=== PATIENT | female | born 1965 | race Caucasian/White ===

== ENCOUNTER → 2020-02-16 14:34 | Outpatient (CLI) | payer MEDICAID, SELFPAY ==
--- NOTE | 2020-02-16 14:42 | XR_ITS ---
PROCEDURE: XR CHEST 2V CLINICAL HISTORY: COUGH Cough, shortness of breath, smoker COMPARISON: No exams were available for comparison FINDINGS: The cardiomediastinal silhouette and pulmonary vascularity are within normal limits. There is some mild hyperinflation with flattening of the hemidiaphragms consistent with COPD. No lobar consolidation or collapse. Lungs are clear. No acute bony abnormalities. IMPRESSION: Hyperinflation with flattening of the diaphragms suggesting COPD/small airway disease otherwise negative Dictated by: Abdias Santiago MD 02/16/2020 15:18 Electronically signed by Abdias Santiago MD in [place] 02/16/2020 15:18
== END ==
PROVIDERS: PCP Family Medicine; Visit Provider Family Medicine
DX: R05 Cough (principal)
CPT/HCPCS: 71046

== ENCOUNTER 2020-10-08 09:05 | Emergency (ER) | payer OTHER, SELFPAY ==
[2020-10-08 09:15] VITALS: BP 119/75; PULSE 71; RESP 20; TEMP 36.6; O2SAT 98; BMI 29.0
--- NOTE | 2020-10-08 09:28 | HMH.EDUTC ---
[facility] [place] Clinical Impression: Exposure to COVID-19 virus Disposition: Home, Self-Care Condition on Discharge: Good Instructions: DI for COVID-19 (Suspected or Confirmed ), Preventing the Spread of Coronavirus Discharge Instructions Additional Instructions: Drink plenty of fluids. Take tylenol for pain or fever. Return if you begin to have difficulty breathing. Follow up with your regular doctor. GO TO THE ER FOR ANY WORSENING SYMPTOMS Referrals: Claudette Colunga MD [Primary Care Provider] - Time of Disposition: 09:42 Medical Decision Making - Medical Records Medical records reviewed: No: I reviewed the patient's medical records. - Jc Inquiry Pt receiving controlled substance: No Vital Signs: 10/08/20 09:15 10/08/20 09:49 Temperature 97.9 F 97.9 F Temperature Source Oral Pulse Rate 71 Pulse Rate [Left Brachial] 71 Respiratory Rate 20 20 Blood Pressure 119/75 Blood Pressure [Left Arm] 119/75 Blood Pressure Mean [Left Arm] 89 Blood Pressure Source [Left Arm] Automatic Cuff Blood Pressure Position [Left Arm] Sitting 02 Sat by Pulse Oximetry 98 Oxygen Delivery Method Room Air Orders (Tests/Meds): ORDERS Category Date Time Status Covid-19 Nasal PCR ([facility]) Routine Lab 10/08/20 09:20 [place] [facility] [place] - General Stated complaint: covid test Time Seen by Provider: 10/08/20 09:28 - History of Present Illness Provider Complaint: She states that she was exposed to covid several days ago approx. She denies any symptoms other that she has had some chilling yesterday. - Related Data Allergies Allergy/AdvReac Type Severity Reaction Status Date / Time codeine Allergy Verified 10/08/20 09:45 guaifenesin Allergy Verified 10/08/20 09:45 [facility] History - Hepatitis A Screen Attestation statement:: This patient has been screened for Hepatitis A risk factors. I have reviewed the patient's past medical history: Yes ROS Obtained: Yes All systems reviewed & no additional complaints - Constitutional Constitutional: Reports system reviewed and no additional complaints, except as docu - Eyes Eyes: Reports system reviewed and no additional complaints, except as docu - ENT Ears, Nose, Mouth, and Throat: Reports system reviewed and no additional complaints, except as docu - Cardiovascular Cardiovascular: Reports system reviewed and no additional complaints, except as docu - Respiratory Respiratory: Yes system reviewed and no additional complaints, except as docu - Gastrointestinal Gastrointestingal: Reports: system reviewed and no additional complaints, except as docu Physical Exam - General General appearance: alert, in no apparent distress - Head Head exam: atraumatic, normocephalic, normal inspection - Eye Eye exam: Present: normal appearance, PERRL, EOMI - ENT ENT exam: Present: normal exam, normal oropharynx, mucous membranes moist, TM's normal bilaterally, normal external ear exam - Neck Neck exam: Present: normal inspection, full ROM, trachea midline. Absent: meningismus, lymphadenopathy - Chest Chest inspection: Present: normal inspection, symmetric chest wall rise. Absent: tenderness - Respiratory Respiratory exam: Present: normal lung sounds bilaterally. Absent: respiratory distress - Cardiovascular Cardiovascular exam: Present: regular rate, normal rhythm. Absent: JVD - Abdominal Exam Abdominal exam: Present: soft, normal bowel sounds. Absent: distention, tenderness, guarding - Extremities Exam Extremities exam: Present: normal inspection, full ROM, normal capillary refill. Absent: calf tenderness - Back Exam Back exam: Present: normal inspection. Absent: tenderness - Neurological Exam Neurological exam: Present: alert, oriented X3 - Psychiatric Psychiatric exam: Present: normal affect, normal mood - Skin Skin exam: Present: warm, dry, intact, normal color - Lymphatic Lymphatic Findings: no adenopathy
[2020-10-08 09:49] VITALS: BP 119/75; PULSE 71; RESP 20; TEMP 36.6; O2SAT 98
--- NOTE | 2020-10-08 13:44 | PC.NURSE ---
patient notified of positive covid results
== END 2020-10-08 09:50 | disposition home or self-care (01) ==
PROVIDERS: Emergency Provider Nurse Practitioner Family; PCP Family Medicine
DX: U07.1 COVID-19 (principal)
CPT/HCPCS: 99202; G0463; U0003

== ENCOUNTER 2022-01-18 13:57 | Emergency (ER) | payer SELFPAY ==
--- NOTE | 2022-01-18 14:25 | HMH.EDUTC ---
[facility] [place] Condition on Discharge: Good Time of Disposition: 14:28 (sent to ed for eval) <Afshan Veliz - Last Filed: 01/18/22 14:25> Condition on Discharge: Good <Chaim Cabral - Last Filed: 01/18/22 16:47> Clinical Impression: Muscle cramps Hypotension Qualifiers: Hypotension type: other hypotension type Qualified Code(s): I95.89 - Other hypotension UTI (urinary tract infection) Qualifiers: Urinary tract infection type: acute cystitis Hematuria presence: without hematuria Qualified Code(s): N30.00 - Acute cystitis without hematuria Disposition: Home, Self-Care Instructions: Urinary Tract Infection Prescriptions: cephALEXin [Cephalexin 500mg Tab] 500 mg PO Q12H 10 Days #20 tab Transmission Status: Pending to [facility] Referrals: Claudette Colunga MD [Primary Care Provider] - Medical Decision Making - Jc Moore Pt receiving controlled substance: No <Afshan Veliz - Last Filed: 01/18/22 14:25> - Medical Records Medical records reviewed: Yes: I reviewed the patient's medical records. - Jc Inquiry Pt receiving controlled substance: No - Lab Data Result diagrams: 01/18/22 15:09 01/18/22 15:09 - Radiology Data #1 Image(s): Chest Image Reviewed: Yes I reviewed the patient's radiology results, Yes I reviewed the patient's radiology image, Yes I have reviewed radiologist's interpretation Preliminary Findings: Normal/NAD - Reevaluation(s) Time: 16:42 <Chaim Cabral - Last Filed: 01/18/22 16:47> Vital Signs: 01/18/22 14:27 01/18/22 14:51 Temperature 97.9 F 97.9 F Temperature Source Oral Oral Pulse Rate [Left] 80 80 Respiratory Rate 24 18 Blood Pressure [Right Arm] 92/74 L 126/80 Blood Pressure Mean [Right Arm] 80 95 Blood Pressure Source [Right Arm] Automatic Cuff Blood Pressure Position [Right Arm] Sitting 02 Sat by Pulse Oximetry 94 L 98 Oxygen Delivery Method Room Air - Lab Data Lab Results 01/18/22 14:50: Urine Color Yellow, Urine Appearance Clear, Urine pH 6.5, Ur Specific [place] <= 1.005, Urine Protein Negative, Urine Glucose (UA) Negative, Urine Ketones Negative, Urine Blood Trace-l, Urine Nitrate Negative, Urine Bilirubin Negative, Urine Urobilinogen 0.2, Ur Leukocyte Esterase 1+ A, Urine RBC Occasional, Urine WBC 3-5, Ur Squamous Epith Cells Occasional, Urine Bacteria 1+ 01/18/22 15:09: WBC 13.2 H, RBC 5.12, Hgb 16.2, Hct 49.7 H, MCV 97.0, MCH 31.7 H, MCHC 32.7, RDW 13.4, Plt Count 362, MPV 8.8, Neut % (Auto) 61.6, Lymph % (Auto) 25.4, [place] % (Auto) 6.4, Eos % (Auto) 3.1, Baso % (Auto) 3.4 H, Neut # (Auto) 8.1 H, Lymph # (Auto) 3.4, [place] # (Auto) 0.9, Eos # (Auto) 0.4, Baso # (Auto) 0.5 H 01/18/22 15:09: Sodium 138, Potassium 4.5, Chloride 103, Carbon Dioxide 26, Anion Gap 13.5, BUN 11, Creatinine 0.80, Estimated Creat Clear 95, Estimated GFR 74, Est GFR ( Amer) 89, Glucose 87, Calcium 8.6, Total Bilirubin 0.7, AST 29, ALT 24, Alkaline Phosphatase 67, Troponin I < 0.01, NT-Pro-B Natriuret Pep 193 H, Total Protein 7.4, Albumin 4.5, Globulin 2.9, Albumin/Globulin Ratio 1.6 Orders (Tests/Meds): ED MEDICATIONS Generic Name Dose Route Start Last Admin Trade Name Freq PRN Reason Stop Dose Admin Sodium Chloride 10 ml 01/18/22 15:11 Sodium Chloride 0.9% 10ml Flush Syringe IV 02/17/22 15:10 NEEDED PRN Maintain IV Site Discontinued Medications Generic Name Dose Route Start Last Admin Trade Name Freq PRN Reason Stop Dose Admin Sodium Chloride 1,000 mls @ 999 mls/hr 01/18/22 15:00 01/18/22 15:20 Sod Chlor 0.9% 1000ml Bag IV 01/18/22 16:00 999 mls/hr .Q1H1M NINFA Administration ORDERS Category Date Time Status Troponin I Q3H Lab 01/18/22 18:00 Ordered Troponin I Q3H Lab 01/18/22 21:00 Ordered Urine Culture Stat Micro 01/18/22 14:50 Received - Reevaluation(s) Reevaluation #1: On reevaluation, the patient is feeling much better. She does have evidence of urinary tract infec
[2022-01-18 14:27] VITALS: BP 92/74; PULSE 80; RESP 24; TEMP 36.6; O2SAT 94; BMI 27.9
--- NOTE | 2022-01-18 14:45 | PC.NURSE ---
ED MD at
[2022-01-18 14:51] VITALS: BP 126/80; PULSE 80; RESP 18; TEMP 36.6; O2SAT 98; BMI 27.9
--- NOTE | 2022-01-18 14:51 | XR_ITS ---
FINAL REPORT CLINICAL HISTORY: chest spasms COMPARISON: February 16, 2020 FINDINGS: The heart size is normal. The mediastinum is within normal limits. There is no acute cardiopulmonary process. There is no pleural effusion. There is no pneumothorax. The bony thorax is intact. IMPRESSION: No acute cardiopulmonary process. Reviewed, Interpreted and Dictated by Lazarus Fallon MD Transcribed by Yakov Lincoln Authenticated by Lazarus Fallon MD on 01/18/2022 04:17:54 PM [facility]
--- NOTE | 2022-01-18 14:57 | PC.NURSE ---
UA sent to lab; patient ambulatory back from restroom without complications
[2022-01-18 15:01] LABS: Microscopic, Urine URINE MICROSCOPIC (MICROSCOPIC)
[2022-01-18 15:12] LABS: Appearance,Urine CLEAR (Clear); Bilirubin,Urine Negative (Negative); Blood, Urine TRACE-L (Negative); Color,Urine YELLOW (Yellow); Glucose,Urine (UA) Negative (Negative); Ketones,Urine Negative (Negative); Leukocyte Esterase,Urine 1+ (Negative); Nitrate,Urine Negative (Negative); PH,Urine 6.5 (5.0-8.5); Protein,Urine Negative (Negative); Specific Gravity, Urine <= 1.005 (1.005-1.030); Urobilinogen,Urine 0.2 EU/dl (0.2)
[2022-01-18 15:24] LABS: Bacteria,Urine 1+ /lpf; RBC,Urine Occasional #/hpf (0-3); Squamous Epithelial Cell,Urine Occasional #/hpf (0-5)
[2022-01-18 15:35] LABS: Chloride 103 mmol/L (98-107); Potassium 4.5 mmoL/L (3.5-5.1); Sodium 138 mmol/L (136-145)
[2022-01-18 15:38] LABS: Alanine Aminotransferase 24 U/L (12-78); Albumin Level 4.5 g/dl (3.5-5.0); Albumin/Globulin Ratio 1.6 (1.1-1.8); Alkaline Phosphatase 67 U/L (38-126); Anion Gap 13.5 mEq/L (5-15); Aspartate Amino Transferase 29 U/L (14-36); Bilirubin,Total 0.7 mg/dl (0.2-1.3); Blood Urea Nitrogen 11 mg/dl (7-17); Calcium 8.6 mg/dl (8.4-10.2); Carbon Dioxide 26 mmol/L (22.0-30.0); Creatinine Clearance Estimated 95 mL/min (50-200); Estimated Glomerular Filt Rate 74 ml/min (>60); GFR (African American) 89 ML/MIN (>60); Globulin 2.9 g/dL (1.3-3.2); Glucose 87 mg/dl (74-100); Total Protein,Serum 7.4 g/dl (6.3-8.2)
[2022-01-18 15:43] LABS: Basophils # 0.5 K/mm3 (0-0.2); Basophils % 3.4 % (0.1-2.0); Eosinophils # 0.4 K/mm3 (0.0-0.4); Eosinophils % 3.1 % (0.1-12.0); Hematocrit 49.7 % (37.0-47.0); Hemoglobin 16.2 g/dL (12.2-16.2); Lymphocytes # 3.4 K/mm3 (0.7-4.5); Lymphocytes % 25.4 % (10-50); Mean Corpuscular HGB Conc 32.7 g/dL (31.8-35.4); Mean Corpuscular Hemoglobin 31.7 pg (27.0-31.2); Mean Platelet Volume 8.8 fl (7.4-10.4); Monocytes # 0.9 K/mm3 (0.1-1.0); Monocytes % 6.4 % (1.7-9.3); Neutrophils # 8.1 K/mm3 (1.8-7.8); Neutrophils % 61.6 % (37.0-80.0); Platelet Count 362 K/mm3 (142-424); Red Blood Count 5.12 M/mm3 (4.20-5.40); Red Cell Distribution Width 13.4 % (11.5-17.5); White Blood Count 13.2 K/mm3 (4.8-10.8)
[2022-01-18 15:46] LABS: NT Pro Brain Natriuretic Pep. 193 pg/mL (0-125)
[2022-01-18 15:53] LABS: Troponin I < 0.01 ng/ml (0.00-0.034)
--- NOTE | 2022-01-18 16:33 | PC.NURSE ---
ED MD at for update on POC
[2022-01-18 17:45] VITALS: BP 126/80; PULSE 80; RESP 18; TEMP 36.6; O2SAT 98
== END 2022-01-18 17:50 | disposition home or self-care (01) ==
LOC: UTC 14:28 → ER 14:30
PROVIDERS: Emergency Provider Emergency Medicine; PCP Family Medicine
DX: N30.00 Acute cystitis without hematuria (principal); I95.89 Other hypotension; R53.81 Other malaise; R53.1 Weakness; R06.02 Shortness of breath; M54.9 Dorsalgia, unspecified; R11.0 Nausea; F41.9 Anxiety disorder, unspecified; Z88.5 Allergy status to narcotic agent; Z88.8 Allergy status to other drugs, medicaments and biological substances
CPT/HCPCS: 71045; 80053; 81001; 83880; 84484; 85025; 87086; 87088; 87186; 96360; 96365; 99284

== ENCOUNTER → 2022-03-26 12:23 | Outpatient (CLI) | payer BC, SELFPAY ==
--- NOTE | 2022-03-26 12:27 | XR_ITS ---
FINAL REPORT CLINICAL HISTORY: dyspnea..copd COMPARISON: January 18, 2022 FINDINGS: Two views of the chest were obtained. The heart size and pulmonary vascularity are within normal limits. The mediastinum is normal. No acute pulmonary abnormality is identified. There is no pneumothorax. The bony thorax is intact. IMPRESSION: No acute cardiopulmonary process, stable. Reviewed, Interpreted and Dictated by Kobe Crockett III, MD Transcribed by Adelaida Thapa Authenticated and [facility]
== END ==
PROVIDERS: PCP Physician Assistant; Visit Provider Physician Assistant
DX: R06.00 Dyspnea, unspecified (principal)
CPT/HCPCS: 71046

== ENCOUNTER → 2022-05-14 12:35 | Outpatient (CLI) | payer BC, SELFPAY ==
[2022-05-14 13:45] VITALS: PULSE 86; PULSE 90
--- NOTE | 2022-05-14 14:56 | CT_ITS ---
FINAL REPORT CLINICAL HISTORY: lung cancer screening smoker x 40 years copd, no family hx FINDINGS: Low-Dose Chest CT Axial images were obtained from the lung apex to the mid abdomen by computed tomography. Low-dose protocol was utilized. CTDI vol (mGy): 2.90 DLP (mGy-cm): 98.99 There is no axillary adenopathy. There is no hilar or mediastinal adenopathy. The heart is proper size. There are moderate left coronary artery calcifications. There is no pericardial or pleural effusion. Limited images of the upper abdomen are unremarkable. Lung window images demonstrate mild changes of emphysema with mild pulmonary scarring. There is mild diffuse bronchial wall thickening consistent with bronchitis. There is an anterior right upper lobe nodule measuring 3 mm on image 22. There is a lateral right upper lobe nodule measuring 2 mm on image 26 and a lateral left upper lobe nodule measuring 3 mm on image 20. There is no dominant mass or suspicious nodule identified. IMPRESSION: Mild diffuse bronchial wall thickening consistent with bronchitis. Bilateral pulmonary nodules as described with no dominant mass or suspicious nodule. Lung RADS category 2. Recommend 12 month follow-up low-dose chest CT. Reviewed, Interpreted and Dictated by Kobe Crockett III, MD Transcribed by Adelaida Thapa Authenticated and [facility]
--- NOTE | 2022-05-14 14:56 | MM_ITS ---
PROCEDURE INFORMATION: Exam: Bilateral Screening 3D Mammography Exam date and time: 05/14/2022 3:13 PM Age: 57 years old Clinical indication: Screening examination TECHNIQUE: Imaging protocol: Bilateral Screening tomosynthesis and 2D mammography including computer-aided detection (CAD) when performed. COMPARISON: 1. DXUAVL MAMM [id number] 02/28/2011 9:12 AM 2. DMSB DIGITAL MAMM-SCREEN BILATERAL 02/09/2011 8:29 AM FINDINGS: MAMMOGRAPHY: Breast composition: The breasts are almost entirely fatty. Mass: None. Architectural distortion: None. Calcifications: No suspicious calcifications. Asymmetric density: None. Skin thickening: None. Axillary adenopathy: None. IMPRESSION: No mammographic evidence of malignancy. Annual screening is recommended unless otherwise clinically indicated. ASSESSMENT: BI-RADS Category 1: Negative
== END ==
PROVIDERS: PCP Physician Assistant; Visit Provider Physician Assistant
DX: Z12.31 Encounter for screening mammogram for malignant neoplasm of breast (principal); Z87.891 Personal history of nicotine dependence; Z12.2 Encounter for screening for malignant neoplasm of respiratory organs; R06.09 Other forms of dyspnea
CPT/HCPCS: 71271; 77063; 77067; 94060; 94640; 94727; 94729

== ENCOUNTER 2022-06-05 13:16 | Emergency (ER) | payer BC, SELFPAY ==
[2022-06-05 14:10] VITALS: BP 138/77; PULSE 65; RESP 18; TEMP 36.7; O2SAT 98; BMI 27.5
--- NOTE | 2022-06-05 14:51 | EXP.UTC ---
Discharge Plan Prescriptions Prescriptions: No Action cefdinir 300 mg capsule 300 mg PO Q12H 10 Days Qty: 20 0RF prednisone 20 mg tablet 20 mg PO DAILY Qty: 18 0RF Rx Instructions: TID X 3 days, BID X 3 days, QD X 3 days fluticasone furoate-vilanterol [Breo Ellipta] 200-25 mcg/dose blister with device 1 inh IH Q24H Qty: 1 2RF Rx Instructions: after inhalation, rinse mouth with water and spit out; do not swallow Spiriva with HandiHaler 18 mcg capsule, w/inhalation device 1 cap IH DAILY Qty: 1 2RF Rx Instructions: puncture 1 cap using device; one dose = 2 inhalations albuterol sulfate 90 mcg/actuation HFA aerosol inhaler 2 puff IH Q4-6H PRN (Reason: shortness of breath or wheezing) Qty: 8.5 3RF albuterol sulfate 1.25 mg/3 mL solution for nebulization 1.25 mg IH QID PRN (Reason: shortness of breath or wheezing) Qty: 90 5RF Referrals Follow up/Referrals: Cindi Forde PA [Primary Care Provider] - See instructions Activity Restrictions/Add. Instructions Additional Instructions/Restrictions: Make sure to follwo up with your Family Doctor for further evaluation and treatment if needed Keep Blood pressure diary Check your blood pressure machine and make sure that it is calibrated correctly Straight to ER if any worsening of symptoms or any life threatening symptoms Clinical Impressions Clinical Impression: Blood pressure check Discharge ED Provider: Antoinette Posey [facility] General Stated complaint: High BP Mode of Arrival: Ambulatory Source of Information: Patient Limitations: No Limitations Time Seen by Provider: 06/05/22 14:58 Description of Symptoms (Recalled from Triage Doc. by RN): PATIENT C/O ELEVATED BLOOD PRESSURE WITH SLIGHT HEADACHE SINCE YESTERDAY MORNING. DENIES HISTORY OF HYPERTENSION HEENT Symptoms (Recalled from RN notes): Yes Resp Symptoms (Recalled from RN notes): No Skin Symptoms (Recalled from RN notes): No MS Symptoms (Recalled from RN notes): No Functional Status (Recalled from RN notes): WNL History of Present Illness Provider Complaint: Patients states that she felt a little achy on Saturday with headache like she may be getting sick States that over the weekend her blood pressure has been up and down and yesterday had a little headache again but that is now gone States that she noticed earlier that her blood pressure was up and wasnt able to get into her PCP so she came in here to get it checked States that she isnt having any symptoms but still wanted to get it checked Related Data Previous Rx's Medication Instructions Recorded albuterol sulfate 1.25 mg/3 mL 1.25 mg (3 mL) inhalation QID PRN 03/26/22 solution for nebulization shortness of breath or wheezing #90 mL albuterol sulfate 90 mcg/actuation 2 puff inhalation Q4-6H PRN 03/26/22 aerosol inhaler shortness of breath or wheezing #8.5 grams cefdinir 300 mg capsule 300 mg PO Q12H 10 days #20 caps 05/22/22 fluticasone furoate 200 1 inh inhalation Q24H #1 ea 05/22/22 mcg-vilanterol 25 mcg/dose inhalation powder (Breo Ellipta) prednisone 20 mg tablet 20 mg PO DAILY #18 tabs 05/22/22 tiotropium bromide 18 mcg capsule 1 cap inhalation DAILY #1 puff 05/22/22 with inhalation device (Spiriva with HandiHaler) Allergies Allergy/AdvReac Type Severity Reaction Status Date / Time codeine Allergy Verified 05/22/22 10:43 guaifenesin Allergy Verified 05/22/22 10:43 Worker's Comp Is this a Worker's Comp case?: No [facility] Medical History (Updated 06/05/22 @ 15:07 by Antoinette Posey APRN) COPD (chronic obstructive pulmonary disease) Nicotine dependence Social History Smoking Status: Current every day smoker tobacco type: cigarettes packs per day: 1 alcohol intake: never current occupational status: employed and other ROS Obtained: Yes All systems reviewed & no additional complaints except as documented and Yes Systems reviewed as appropriate & no additional complai
[2022-06-05 15:10] VITALS: BP 138/77; PULSE 65; RESP 18; TEMP 36.7; O2SAT 98
[2022-06-05 15:34] LABS: Adenovirus,PCR Not Detected (NotDetected); Bordetella Pertussis Not Detected (NotDetected); Chlamydophila Pneumoniae, PCR Not Detected (NotDetected); Coronavirus 19, PCR Not Detected (NotDetected); Coronavirus 229E Not Detected (NotDetected); Coronavirus NL63 Not Detected (NotDetected); Coronavirus OC43 Not Detected (NotDetected); Coronovirus HKU1,PCR Not Detected (NotDetected); Human Metapneumovirus Not Detected (NotDetected); Influenza A, PCR Not Detected (NotDetected); Influenza AH1, 2009 Not Detected (NotDetected); Influenza AH1, PCR Not Detected (NotDetected); Influenza AH3,PCR Not Detected (NotDetected); Influenza B, PCR Not Detected (NotDetected); Mycoplasma Pneumoniae, PCR Not Detected (NotDetected); Parainfluenza 1, PCR Not Detected (NotDetected); Parainfluenza 2, PCR Not Detected (NotDetected); Parainfluenza 3, PCR Not Detected (NotDetected); Parainfluenza 4, PCR Not Detected (NotDetected); Respiratory Syncytial Virus Not Detected (NotDetected); Rhinovirus/Enterovirus Not Detected (NotDetected)
== END 2022-06-05 15:13 | disposition home or self-care (01) ==
LOC: UTC 13:17
PROVIDERS: Emergency Provider Nurse Practitioner; PCP Physician Assistant
DX: R03.0 Elevated blood-pressure reading, without diagnosis of hypertension (principal); R51.9 Headache, unspecified; Z79.899 Other long term (current) drug therapy; Z88.6 Allergy status to analgesic agent; Z88.8 Allergy status to other drugs, medicaments and biological substances; F17.210 Nicotine dependence, cigarettes, uncomplicated; J44.9 Chronic obstructive pulmonary disease, unspecified
CPT/HCPCS: 87581; 87632; 87798; 99212; C9803; G0463; U0003; U0005

== ENCOUNTER → 2022-06-18 17:12 | Outpatient (CLI) | payer BC, SELFPAY ==
[2022-06-18 15:51] LABS: Basophils # 0.3 K/mm3 (0-0.2); Basophils % 2.6 % (0.1-2.0); Eosinophils # 0.3 K/mm3 (0.0-0.4); Eosinophils % 3.5 % (0.1-12.0); Hematocrit 46.6 % (37.0-47.0); Hemoglobin 14.6 g/dL (12.2-16.2); Lymphocytes # 2.9 K/mm3 (0.7-4.5); Lymphocytes % 30.1 % (10-50); Mean Corpuscular HGB Conc 31.3 g/dL (31.8-35.4); Mean Corpuscular Hemoglobin 31.1 pg (27.0-31.2); Mean Corpuscular Volume 99.3 fl (81-99); Mean Platelet Volume 9.5 fl (7.4-10.4); Monocytes # 0.7 K/mm3 (0.1-1.0); Monocytes % 6.9 % (1.7-9.3); Neutrophils # 5.5 K/mm3 (1.8-7.8); Neutrophils % 56.8 % (37.0-80.0); Platelet Count 326 K/mm3 (142-424); Red Blood Count 4.69 M/mm3 (4.20-5.40); Red Cell Distribution Width 13.7 % (11.5-17.5); White Blood Count 9.6 K/mm3 (4.8-10.8)
[2022-06-18 16:35] LABS: Alanine Aminotransferase 21 U/L (12-78); Albumin Level 4.2 g/dl (3.5-5.0); Albumin/Globulin Ratio 1.7 (1.1-1.8); Alkaline Phosphatase 76 U/L (38-126); Anion Gap 15.4 mEq/L (5-15); Aspartate Amino Transferase 22 U/L (14-36); Bilirubin,Total 0.3 mg/dl (0.2-1.3); Blood Urea Nitrogen 11 mg/dl (7-17); Calcium 8.7 mg/dl (8.4-10.2); Carbon Dioxide 26 mmol/L (22.0-30.0); Chloride 102 mmol/L (98-107); Chol/HDL Ratio 4.5 (1-3.5); Cholesterol 215 mg/dl (140-200); Estimated Glomerular Filt Rate 86 ml/min (>60); GFR (African American) 104 ML/MIN (>60); Globulin 2.5 g/dL (1.3-3.2); Glucose 67 mg/dl (74-100); HDL Cholesterol 48 mg/dl (40-60); Potassium 4.4 mmoL/L (3.5-5.1); Sodium 139 mmol/L (136-145); Total Protein,Serum 6.7 g/dl (6.3-8.2); Triglycerides 189 mg/dl (30-150); VLDL Cholesterol 38 mg/dL (0-40)
[2022-06-18 16:46] LABS: Direct LDL Cholesterol 145.15 mg/dL (100-129)
[2022-06-18 16:52] LABS: 25-OH Vitamin D, Total 26.1 ng/mL (30-100)
[2022-06-18 17:05] LABS: Thyroid Stimulating Hormone 1.24 uIU/mL (0.465-4.68)
[2022-06-18 17:25] LABS: Vitamin B12 540 pg/mL (239-931)
== END ==
LOC: LAB.DROPOF 07-04 17:12
PROVIDERS: Physician Assistant; PCP Nurse Practitioner Family; Visit Provider Nurse Practitioner Family
DX: Z01.30 Encounter for examination of blood pressure without abnormal findings (principal); E55.9 Vitamin D deficiency, unspecified; Z79.899 Other long term (current) drug therapy
CPT/HCPCS: 80053; 80061; 82306; 82607; 84443; 85025

== ENCOUNTER → 2022-06-18 19:46 | Outpatient (CLI) | payer BC, SELFPAY | PROVIDERS: PCP Physician Assistant; Visit Provider Physician Assistant | DX: Z01.89 Encounter for other specified special examinations (principal) ==

== ENCOUNTER → 2022-07-02 10:08 | Outpatient (CLI) | payer BC, SELFPAY ==
--- NOTE | 2022-07-02 10:09 | CA_ITS ---
APPROVED REPORT EXAM: Comprehensive 2D, Doppler, and color-flow Echocardiogram Corporate Security Manager: Claire Lilly CRT Ht: 5 ft 6 in Wt: 178lbs BSA: 1.90 BP: 150/80 mmHg Indications: COPD, Murmur, Smoker, TIA 11 yrs ago 2D Dimensions LVOT 1.65 cm (M/F) 1.5-2.5 LA Volume 26.60 mL LA Volume Index 14.00 mL/m2 (M/F) 16-34 M-Mode Dimensions RVDd 2.55 cm (0.9-2.6) LA Diam 3.10 cm (1.9-4.0) LVDd 2.82 cm (3.5-5.7) Ao Diam 3.77 cm (2.0-3.7) LVDs 3.54 cm (3.5-5.7) IVSd 1.74 cm (0.6-1.1) PWd 0.73 cm (0.6-1.1) EF (Teich) 73.80% FS 25.50% EDV (Teich) 30.10 mL TAPSE 1.68 (<1.7) ESV (Teich) 52.30 mL LV Diastology E Decel Time 253.00 (160-240 msec) E/A Ratio 0.71 MED E' 4.80 (< 7 cm/sec) MED A' 8.60 cm/s E'/MED E' Ratio 18.27 (>14) LAT E' 6.00 (<10 cm/sec) LAT A' 10.00 cm/s E/LAT E' Ratio 14.62 (>14) Aortic Valve AI PHT 368.00 ms AO Peak GR. 7.60 mmHg Mitral Valve MV E Max Kavon. 88.00 (40-130 cm/s) MV A Velocity 124.00 (40-130 cm/s) E/A Ratio 0.71 MV Decel. Time 253.00 (160-240 ms) MV PHT 74.00 ms Pulmonary Valve PV Peak Velocity 104.00 (50-150 cm/s) Tricuspid Valve TR P. Velocity 132.00 cm/s RAP Estimate 10.00 mmHg RVSP 17.00 mmHg Left Ventricle Left atrium is mildly enlarged, left ventricle is normal size, there is moderate concentric left ventricular hypertrophy, estimated ejection fraction 50% with no regional wall motion abnormality, grade 1 diastolic dysfunction seen with tissue Doppler evidence of raise left atrial pressure. Right Ventricle Right atrium and right ventricle is normal size with normal contractility. Aortic Valve Aortic valve is minimally thickened and calcified without aortic stenosis, there is trace aortic insufficiency. Mitral Valve Mitral valve grossly normal, there is trace mitral regurgitation. Tricuspid Valve Tricuspid grossly normal, there is trace tricuspid regurgitation, regurgitation jet velocity is inadequate for calculation of the right ventricular systolic pressure. Pulmonic Valve Pulmonic valve is poorly visualized. Great Vessels Aortic root is normal size. Inferior vena cava is normal size with normal inspiratory collapse. Pericardium No significant pericardial effusion noted. Conclusion 1. Normal left ventricular size moderate concentric left ventricular hypertrophy, estimated ejection fraction 50% with no regional wall motion abnormality, grade 1 diastolic dysfunction seen with tissue Doppler evidence of raise left atrial pressure. 2. Mild mitral and tricuspid regurgitation. 3. No significant pericardial effusion noted. 4. Inferior vena cava normal size with normal inspiratory collapse. Electronically signed by : Kevin Martinez MD 07/02/2022 12:47:21
--- NOTE | 2022-07-02 10:09 | US_ITS ---
FINAL REPORT CLINICAL HISTORY: CLAUDICATION,REST PAIN,SMOKER,HTN,HLD,TIA FINDINGS: ANKLE-BRACHIAL PRESSURE INDICES Pressure indices are as follows: RIGHT LOWER EXTREMITY: Thigh pressure index: 0.92 CT pressure index: 1.05 Ankle (PT) pressure index: 1.0 Ankle (DP) pressure index: 0.86 Ankle-brachial pressure index: 1.0 LEFT LOWER EXTREMITY: Thigh pressure index: 0.95 CT pressure index: 0.91 Ankle (PT) pressure index: 0.79 Ankle (DP) pressure index: 0.95 Ankle-brachial pressure index: 0.95 CONCLUSION: Findings suggestive of minimal PVD of the infra popliteal distribution. Reviewed, Interpreted and Dictated by Umesh Medeiros MD Transcribed by Adelaida Thapa Authenticated and [facility]
== END ==
LOC: RT 10:09
PROVIDERS: PCP Physician Assistant; Visit Provider Nurse Practitioner Family
DX: R01.1 Cardiac murmur, unspecified (principal); I70.213 Atherosclerosis of native arteries of extremities with intermittent claudication, bilateral legs
CPT/HCPCS: 93306; 93923

== ENCOUNTER → 2023-03-18 23:35 | Outpatient (CLI) | payer BC, SELFPAY | PROVIDERS: PCP Physician Assistant; Visit Provider Physician Assistant | DX: N39.0 Urinary tract infection, site not specified (principal); B96.89 Other specified bacterial agents as the cause of diseases classified elsewhere | CPT/HCPCS: 87086; 87088; 87186 ==

== ENCOUNTER → 2023-04-29 16:19 | Outpatient (CLI) | payer BC, SELFPAY ==
[2023-04-29 14:00] LABS: Basophils # 0.2 K/mm3 (0-0.2); Eosinophils # 0.5 K/mm3 (0.0-0.4); Eosinophils % 6.3 % (0.1-12.0); Hematocrit 44.4 % (37.0-47.0); Hemoglobin 14.3 g/dL (12.2-16.2); Lymphocytes # 2.6 K/mm3 (0.7-4.5); Lymphocytes % 32.4 % (10-50); Mean Corpuscular HGB Conc 32.3 g/dL (31.8-35.4); Mean Corpuscular Hemoglobin 30.1 pg (27.0-31.2); Mean Corpuscular Volume 93.2 fl (81-99); Mean Platelet Volume 8.4 fl (7.4-10.4); Monocytes # 0.5 K/mm3 (0.1-1.0); Monocytes % 6.5 % (1.7-9.3); Neutrophils # 4.2 K/mm3 (1.8-7.8); Neutrophils % 52.9 % (37.0-80.0); Platelet Count 344 K/mm3 (142-424); Red Blood Count 4.77 M/mm3 (4.20-5.40)
[2023-04-29 14:28] LABS: Alanine Aminotransferase 27 U/L (12-78); Albumin Level 4.4 g/dl (3.5-5.0); Albumin/Globulin Ratio 1.8 (1.1-1.8); Alkaline Phosphatase 67 U/L (38-126); Anion Gap 11.6 mEq/L (5-15); Aspartate Amino Transferase 25 U/L (14-36); Bilirubin,Total 0.6 mg/dl (0.2-1.3); Blood Urea Nitrogen 7 mg/dl (7-17); Calcium 9.9 mg/dl (8.4-10.2); Carbon Dioxide 28 mmol/L (22.0-30.0); Chloride 106 mmol/L (98-107); Chol/HDL Ratio 3.6 (1-3.5); Cholesterol 144 mg/dl (140-200); Estimated Glomerular Filt Rate 85 ml/min (>60); GFR (African American) 103 ML/MIN (>60); Globulin 2.5 g/dL (1.3-3.2); Glucose 93 mg/dl (74-100); HDL Cholesterol 40 mg/dl (40-60); Potassium 4.6 mmoL/L (3.5-5.1); Sodium 141 mmol/L (136-145); Total Protein,Serum 6.9 g/dl (6.3-8.2); Triglycerides 216 mg/dl (30-150); VLDL Cholesterol 43 mg/dL (0-40)
[2023-04-29 14:40] LABS: Direct LDL Cholesterol 79.13 mg/dL (100-129)
[2023-04-29 14:46] LABS: 25-OH Vitamin D, Total 79.3 ng/mL (30-100)
[2023-04-29 14:58] LABS: Thyroid Stimulating Hormone 0.85 uIU/mL (0.465-4.68)
== END ==
PROVIDERS: PCP Physician Assistant; Visit Provider Physician Assistant
DX: R06.09 Other forms of dyspnea (principal); I10 Essential (primary) hypertension; F41.9 Anxiety disorder, unspecified; J44.1 Chronic obstructive pulmonary disease with (acute) exacerbation; N39.0 Urinary tract infection, site not specified; B96.89 Other specified bacterial agents as the cause of diseases classified elsewhere; E66.9 Obesity, unspecified; Z68.30 Body mass index [BMI] 30.0-30.9, adult
CPT/HCPCS: 80053; 80061; 82306; 84443; 85025; 87086; 87088; 87186

== ENCOUNTER 2023-07-12 13:43 | Emergency (ER) | payer BC, SELFPAY ==
[2023-07-12] VITALS (10 sets, daily range): BP systolic 120–173; BP diastolic 65–130; PULSE 69–92; RESP 14–23; TEMP 36.7–36.8; O2SAT 95–99; BMI 30.2
--- NOTE | 2023-07-12 13:46 | CT_ITS ---
FINAL REPORT CLINICAL HISTORY: abd pain, back pain FINDINGS: CT OF THE ABDOMEN AND PELVIS WITH CONTRAST Axial CT images of the abdomen and pelvis were obtained after the administration of oral and iv contrast. Coronal reformatted images were also obtained and reviewed.This study was performed with techniques to keep radiation doses as low as reasonably achievable (ALARA). Individualized dose reduction techniques using automated exposure control or adjustment of mA and/or kV according to the patient's size were employed. Abdomen: The lung bases are clear. The heart is normal in size. There are 2 small areas of contrast-enhancement in the right hepatic lobe. These have a nonspecific appearance and could represent transhepatic attenuation difference or possibly hemangiomas. The patient is status postcholecystectomy. There is mild biliary ductal dilatation likely related to postcholecystectomy change. No adrenal mass is present. The pancreas has an unremarkable appearance. There is a less than 1 cm probable cyst in the left kidney. The right kidney is unremarkable. The aorta is normal in caliber. There is no free fluid or adenopathy. Pelvis: The appendix normal. The patient is status post hysterectomy. The urinary bladder is unremarkable. No inflammatory process is seen. There is no evidence of mass or adenopathy. There is no evidence of bowel obstruction. IMPRESSION: 2 small areas of contrast-enhancement in the right hepatic lobe could represent transhepatic attenuation difference or possible hemangiomas. Probable small cyst in the left kidney. Reviewed, Interpreted and Dictated by Kobe Crockett III, MD Transcribed by Marti Foley Authenticated and . [facility]
--- NOTE | 2023-07-12 13:52 | XR_ITS ---
FINAL REPORT CLINICAL HISTORY: Precordial chest pain FINDINGS: A single portable view of the chest was obtained. The heart size and pulmonary vascularity are within normal limits. The mediastinum is within normal limits. No acute pulmonary abnormality is identified. The bony thorax is intact. IMPRESSION: No active cardiopulmonary disease. Reviewed, Interpreted and Dictated by Kobe Crockett III, MD Transcribed by Marti Foley Authenticated and . [facility]
--- NOTE | 2023-07-12 13:56 | HMH.EDGENADL ---
Discharge Plan Disposition Patient Disposition: Home, Self-Care Condition: Good Prescriptions Prescriptions: New methocarbamol 500 mg tablet 500 mg PO Q8H Qty: 90 0RF No Action losartan 50 mg tablet 50 mg PO DAILY Spiriva with HandiHaler 18 mcg capsule, w/inhalation device 1 cap IH DAILY Rx Instructions: puncture 1 cap using device; one dose = 2 inhalations prednisone 20 mg tablet 20 mg PO DAILY Qty: 18 0RF Rx Instructions: TID X 3 days, BID X 3 days, QD X 3 days albuterol sulfate 1.25 mg/3 mL solution for nebulization 1.25 mg IH QID PRN (Reason: shortness of breath or wheezing) Qty: 90 5RF Wegovy 0.25 mg/0.5 mL pen injector See Rx Instructions .ROUTE .COMPLEX Qty: 2 3RF Dose Instruction: INJECT 0.25 MG (0.5 ML) SUBCUTANEOUSLY ONCE WEEKLY Rx Instructions: INJECT 0.25 MG (0.5 ML) SUBCUTANEOUSLY ONCE WEEKLY sertraline 100 mg tablet See Rx Instructions .ROUTE .COMPLEX Qty: 30 2RF Dose Instruction: TAKE ONE TABLET BY MOUTH ONCE A DAY Rx Instructions: TAKE ONE TABLET BY MOUTH ONCE A DAY levofloxacin 500 mg tablet 500 mg PO Q24H 10 Days Qty: 10 0RF cholecalciferol (vitamin D3) 1,250 mcg (50,000 unit) capsule See Rx Instructions .ROUTE .COMPLEX Qty: 4 0RF Dose Instruction: TAKE ONE CAPSULE BY MOUTH EVERY WEEK Rx Instructions: TAKE ONE CAPSULE BY MOUTH EVERY WEEK atorvastatin 10 mg tablet See Rx Instructions .ROUTE .COMPLEX Qty: 30 0RF Dose Instruction: TAKE ONE TABLET BY MOUTH EVERY NIGHT AT BEDTIME Rx Instructions: TAKE ONE TABLET BY MOUTH EVERY NIGHT AT BEDTIME Referrals Follow up/Referrals: Cindi Forde PA [Primary Care Provider] - See instructions Activity Restrictions/Add. Instructions Additional Instructions/Restrictions: Please continue to stay hydrated, I have prescribed a muscle relaxant, it appears that the statin that you take may have contributed to your symptoms as well, please discuss this with your primary care doctor Clinical Impressions Clinical Impression: Statin myopathy Discharge ED Provider: Ben Dasilva Adult HPI <Vane Bishop MD - Last Filed: 07/12/23 14:55> General Chief complaint: PAIN Stated complaint: phy ref, abd pain, back pain Time Seen by Provider: 07/12/23 13:46 History of Present Illness HPI narrative: This 58-year-old female with a history of COPD, hypertension, LVH, hyperlipidemia, TIAs presents to the emergency department with concerns of random sharp abdominal pains that alternate between the left and right side. Patient states she has had these symptoms randomly multiple times over the last few months. She was evaluated in January and reportedly was told she was dehydrated. Patient states since that time she has been diligent about drinking plenty of fluids and does not believe she is dehydrated. She denies fevers, chills, chest pain, but does state that when she has these attacks she has shortness of breath. She states sometimes she stands in front of an air conditioner in order to help with her diaphoresis and shortness of breath as she is having the pain. She describes as sharp shooting pain down the side of the body. Earlier today she had an episode on the left side of the body. She states the pain has mostly subsided but she still is slightly tender on the side. Patient does admit that she took a muscle relaxer from a friend earlier today and was surprised that her symptoms recurred despite this. She is not having any nausea, vomiting, or diarrhea. She denies other associated symptoms. Related Data Home Medications Medication Instructions Recorded Confirmed losartan 50 mg tablet 50 mg PO DAILY 01/21/23 04/29/23 tiotropium bromide 18 mcg capsule 1 cap inhalation DAILY 04/29/23 with inhalation device (Spiriva with HandiHaler) Previous Rx's Medication Instructions Recorded albuterol sulfate 1.25 mg/3 mL 1.25 mg (3 mL)
[2023-07-12 13:58] LABS: Microscopic, Urine URINE MICROSCOPIC (MICROSCOPIC)
--- NOTE | 2023-07-12 14:01 | ECG_ITS ---
APPROVED REPORT Exam: Resting ECG HR:81 bpm ECG Measurements Heart Rate 81 AXES GA 168 P 56 QRSd 142 QRS -11 QT 389 T 134 QTc 426 Conclusion SINUS RHYTHM POSSIBLE LEFT ATRIAL ENLARGEMENT [-0.1mV P-WAVE IN V1/V2] LEFT BUNDLE BRANCH BLOCK [120+ ms QRS DURATION, 80+ ms Q/S IN V1/V2, 85+ ms R IN I/aVL/V5/V6] ABNORMAL ECG UNCONFIRMED REPORT Electronically signed by : Sheldon Rodriguez MD 07/13/2023 07:57:14
[2023-07-12 14:30] LABS: Basophils # 0.2 K/mm3 (0-0.2); Basophils % 1.5 % (0.1-2.0); Eosinophils # 0.5 K/mm3 (0.0-0.4); Eosinophils % 4.6 % (0.1-12.0); Hematocrit 49.7 % (37.0-47.0); Lymphocytes # 3.2 K/mm3 (0.7-4.5); Mean Corpuscular HGB Conc 32.1 g/dL (31.8-35.4); Mean Corpuscular Hemoglobin 30.4 pg (27.0-31.2); Mean Corpuscular Volume 94.6 fl (81-99); Mean Platelet Volume 8.3 fl (7.4-10.4); Monocytes # 0.7 K/mm3 (0.1-1.0); Monocytes % 5.7 % (1.7-9.3); Neutrophils # 7.2 K/mm3 (1.8-7.8); Neutrophils % 61.3 % (37.0-80.0); Platelet Count 384 K/mm3 (142-424); Red Blood Count 5.26 M/mm3 (4.20-5.40); Red Cell Distribution Width 13.5 % (11.5-17.5); White Blood Count 11.7 K/mm3 (4.8-10.8)
[2023-07-12 14:35] LABS: Alanine Aminotransferase 28 U/L (12-78); Albumin Level 4.9 g/dl (3.5-5.0); Albumin/Globulin Ratio 1.4 (1.1-1.8); Alkaline Phosphatase 63 U/L (38-126); Anion Gap 13.4 mEq/L (5-15); Aspartate Amino Transferase 35 U/L (14-36); Bilirubin,Total 0.8 mg/dl (0.2-1.3); Blood Urea Nitrogen 13 mg/dl (7-17); Calcium 9.6 mg/dl (8.4-10.2); Carbon Dioxide 27 mmol/L (22.0-30.0); Chloride 105 mmol/L (98-107); Creatinine Clearance Estimated 100 mL/min (50-200); Estimated Glomerular Filt Rate 73 ml/min (>60); GFR (African American) 89 ML/MIN (>60); Globulin 3.5 g/dL (1.3-3.2); Glucose 99 mg/dl (74-100); Potassium 4.4 mmoL/L (3.5-5.1); Sodium 141 mmol/L (136-145); Total Protein,Serum 8.4 g/dl (6.3-8.2)
[2023-07-12 14:36] LABS: Appearance,Urine CLEAR (Clear); Bilirubin,Urine Negative (Negative); Blood, Urine TRACE-I (Negative); Color,Urine YELLOW (Yellow); Glucose,Urine (UA) Negative (Negative); Ketones,Urine Negative (Negative); Leukocyte Esterase,Urine 1+ (Negative); Nitrate,Urine Negative (Negative); PH,Urine 5.5 (5.0-8.5); Protein,Urine Negative (Negative); Specific Gravity, Urine 1.025 (1.005-1.030); Urobilinogen,Urine 0.2 EU/dl (0.2)
--- NOTE | 2023-07-12 14:45 | PC.NURSE ---
PT gone to RAD via wheelchair
--- NOTE | 2023-07-12 14:56 | PC.NURSE ---
Pt returned from RAD
[2023-07-12 15:03] LABS: Troponin I < 0.01 ng/ml (0.00-0.034)
[2023-07-12 15:05] LABS: WBC,Urine Occasional #/hpf (0-3)
[2023-07-12 15:06] LABS: Squamous Epithelial Cell,Urine Occasional #/hpf (0-5)
--- NOTE | 2023-07-12 15:36 | PC.NURSE ---
call made to radiology for update on status of scans. [employer] states she will fax down what she has.
--- NOTE | 2023-07-12 16:12 | PC.NURSE ---
Pt ambulatory to bathroom
== END 2023-07-12 17:18 | disposition home or self-care (01) ==
PROVIDERS: Emergency Medicine; Emergency Provider Emergency Medicine; PCP Physician Assistant
DX: G72.0 Drug-induced myopathy (principal); R10.9 Unspecified abdominal pain; R06.02 Shortness of breath; B96.89 Other specified bacterial agents as the cause of diseases classified elsewhere; J44.9 Chronic obstructive pulmonary disease, unspecified; I10 Essential (primary) hypertension; E78.5 Hyperlipidemia, unspecified; I44.7 Left bundle-branch block, unspecified; Z86.73 Personal history of transient ischemic attack (TIA), and cerebral infarction without residual deficits; Z87.891 Personal history of nicotine dependence
CPT/HCPCS: 71045; 74177; 80053; 81001; 84484; 85025; 87086; 93005; 96360; 99285; Q9967

== ENCOUNTER → 2023-07-15 13:20 | Outpatient (CLI) | payer BC, SELFPAY ==
[2023-07-15 12:51] LABS: Cholesterol 185 mg/dl (140-200); HDL Cholesterol 37 mg/dl (40-60); Triglycerides 195 mg/dl (30-150); VLDL Cholesterol 39 mg/dL (0-40)
[2023-07-15 13:02] LABS: Direct LDL Cholesterol 114.68 mg/dL (100-129)
[2023-07-15 13:25] LABS: Thyroid Stimulating Hormone 1.61 uIU/mL (0.465-4.68)
== END ==
PROVIDERS: PCP Internal Medicine; Visit Provider Internal Medicine
DX: E78.5 Hyperlipidemia, unspecified (principal)
CPT/HCPCS: 80061; 84443

== ENCOUNTER → 2023-08-05 16:30 | Outpatient (CLI) | payer BC, SELFPAY ==
[2023-08-05 11:35] LABS: Chol/HDL Ratio 6.3 (1-3.5); Cholesterol 222 mg/dl (140-200); HDL Cholesterol 35 mg/dl (40-60); Triglycerides 265 mg/dl (30-150); VLDL Cholesterol 53 mg/dL (0-40)
[2023-08-05 11:46] LABS: Direct LDL Cholesterol 136.84 mg/dL (100-129)
== END ==
PROVIDERS: PCP Internal Medicine; Visit Provider Internal Medicine
DX: E78.5 Hyperlipidemia, unspecified (principal)
CPT/HCPCS: 80061

== ENCOUNTER 2023-12-06 18:54 | Outpatient (CLI) | payer BC, SELFPAY ==
[2023-12-06 19:24] LABS: Chol/HDL Ratio 8.3 (1-3.5); Cholesterol 225 mg/dl (140-200); HDL Cholesterol 27 mg/dl (40-60); Triglycerides 252 mg/dl (30-150); VLDL Cholesterol 50 mg/dL (0-40)
[2023-12-06 19:37] LABS: Direct LDL Cholesterol 137.23 mg/dL (100-129)
== END 2023-12-06 23:59 ==
LOC: LAB 18:55
PROVIDERS: PCP Internal Medicine; Visit Provider Internal Medicine
DX: G72.0 Drug-induced myopathy (principal); T46.6X5A Adverse effect of antihyperlipidemic and antiarteriosclerotic drugs, initial encounter
CPT/HCPCS: 80061

== ENCOUNTER 2023-12-18 19:58 | Outpatient (CLI) | payer BC, SELFPAY | END 2023-12-18 23:59 | LOC: LAB.DROPOF 19:58 | PROVIDERS: PCP Physician Assistant; Visit Provider Physician Assistant | DX: N39.0 Urinary tract infection, site not specified (principal); B96.89 Other specified bacterial agents as the cause of diseases classified elsewhere | CPT/HCPCS: 87086 ==

== ENCOUNTER 2024-04-20 11:00 | Outpatient (CLI) | payer BC, SELFPAY ==
[2024-04-20 17:37] LABS: Basophils # 0.1 K/mm3 (0-0.2); Basophils % 1.5 % (0.1-2.0); Eosinophils # 0.3 K/mm3 (0.0-0.4); Eosinophils % 3.5 % (0.1-12.0); Hematocrit 47.9 % (37.0-47.0); Hemoglobin 15.6 g/dL (12.2-16.2); Lymphocytes # 2.8 K/mm3 (0.7-4.5); Lymphocytes % 29.4 % (10-50); Mean Corpuscular HGB Conc 32.5 g/dL (31.8-35.4); Mean Corpuscular Hemoglobin 31.8 pg (27.0-31.2); Mean Corpuscular Volume 97.7 fl (81-99); Mean Platelet Volume 9.5 fl (7.4-10.4); Monocytes # 0.6 K/mm3 (0.1-1.0); Monocytes % 6.4 % (1.7-9.3); Neutrophils # 5.6 K/mm3 (1.8-7.8); Neutrophils % 59.3 % (37.0-80.0); Platelet Count 320 K/mm3 (142-424); Red Cell Distribution Width 13.4 % (11.5-17.5); White Blood Count 9.4 K/mm3 (4.8-10.8)
[2024-04-20 17:53] LABS: Chloride 104 mmol/L (98-107); Sodium 139 mmol/L (136-145)
[2024-04-20 17:54] LABS: Potassium 4.8 mmoL/L (3.5-5.1)
[2024-04-20 17:56] LABS: Alanine Aminotransferase 25 U/L (12-78); Albumin Level 4.5 g/dl (3.5-5.0); Albumin/Globulin Ratio 1.7 (1.1-1.8); Alkaline Phosphatase 64 U/L (38-126); Anion Gap 12.8 mEq/L (5-15); Aspartate Amino Transferase 30 U/L (14-36); Bilirubin,Total 0.6 mg/dl (0.2-1.3); Blood Urea Nitrogen 17 mg/dl (7-17); Carbon Dioxide 27 mmol/L (22.0-30.0); Cholesterol 205 mg/dl (140-200); Estimated Glomerular Filt Rate 64 ml/min (>60); GFR (African American) 77 ML/MIN (>60); Globulin 2.7 g/dL (1.3-3.2); Total Protein,Serum 7.2 g/dl (6.3-8.2); Triglycerides 236 mg/dl (30-150); VLDL Cholesterol 47 mg/dL (0-40)
[2024-04-20 17:57] LABS: Calcium 9.9 mg/dl (8.4-10.2); Chol/HDL Ratio 5.7 (1-3.5); Glucose 66 mg/dl (74-100); HDL Cholesterol 36 mg/dl (40-60)
[2024-04-20 18:08] LABS: Direct LDL Cholesterol 132.28 mg/dL (100-129)
[2024-04-20 18:10] LABS: 25-OH Vitamin D, Total 42.9 ng/mL (30-100)
[2024-04-20 18:24] LABS: Thyroid Stimulating Hormone 0.69 uIU/mL (0.465-4.68)
== END 2024-04-20 23:59 | disposition home or self-care (01) ==
LOC: LAB.DROPOF 04-21 08:25
PROVIDERS: PCP Physician Assistant; Visit Provider Physician Assistant
DX: E78.00 Pure hypercholesterolemia, unspecified (principal); E66.9 Obesity, unspecified
CPT/HCPCS: 80050; 80053; 80061; 82306; 84443; 85025

== ENCOUNTER 2024-07-02 18:16 | Emergency (ER) | payer BC, SELFPAY ==
--- NOTE | 2024-07-02 18:17 | ED_ITS ---
Discharge Plan Disposition Patient Disposition: Home, Self-Care Condition: Good Prescriptions Prescriptions: New phenazopyridine [Pyridium] 200 mg tablet 200 mg PO Q8H 2 Days Qty: 6 0RF ondansetron 4 mg Tablet,Disintegrating 4 mg PO Q8H PRN (Reason: Nausea) Qty: 12 0RF nitrofurantoin monohyd/m-cryst [Macrobid] 100 mg Capsule 100 mg PO BID Qty: 10 0RF Rx Instructions: must administer with a meal/food No Action tizanidine 2 mg tablet 2 mg PO TID PRN (Reason: muscle spasticity) 21 Days Qty: 60 0RF doxycycline hyclate 100 mg tablet 100 mg PO BID Qty: 20 0RF prednisone 20 mg tablet 20 mg PO BID Qty: 10 0RF Rx Instructions: administer with food or milk Trelegy Ellipta 200-62.5-25 mcg blister with device 1 inh inhalation DAILY Qty: 30 2RF albuterol sulfate 1.25 mg/3 mL solution for nebulization 1.25 mg IH QID PRN (Reason: shortness of breath or wheezing) Qty: 90 5RF cholecalciferol (vitamin D3) 1,250 mcg (50,000 unit) capsule See Rx Instructions .ROUTE .COMPLEX Qty: 4 2RF Dose Instruction: TAKE ONE CAPSULE BY MOUTH EVERY WEEK Rx Instructions: TAKE ONE CAPSULE BY MOUTH EVERY WEEK albuterol sulfate 90 mcg/actuation HFA aerosol inhaler See Rx Instructions .ROUTE .COMPLEX Qty: 8.5 0RF Dose Instruction: INHALE 2 PUFFS BY MOUTH EVERY 4 TO 6 HOURS NEEDED FOR SHORTNESS OF BREATH OR WHEEZING Rx Instructions: INHALE 2 PUFFS BY MOUTH EVERY 4 TO 6 HOURS NEEDED FOR SHORTNESS OF BREATH OR WHEEZING fluticasone furoate-vilanterol 200-25 mcg/dose blister with device See Rx Instructions .ROUTE .COMPLEX Qty: 60 0RF Dose Instruction: INHALE 1 PUFF BY MOUTH ONCE A DAY Rx Instructions: INHALE 1 PUFF BY MOUTH ONCE A DAY losartan 50 mg tablet See Rx Instructions .ROUTE .COMPLEX Qty: 30 4RF Dose Instruction: TAKE ONE TABLET BY MOUTH ONCE A DAY Rx Instructions: TAKE ONE TABLET BY MOUTH ONCE A DAY sertraline 100 mg tablet See Rx Instructions .ROUTE .COMPLEX Qty: 90 3RF Dose Instruction: TAKE ONE TABLET BY MOUTH ONCE A DAY Rx Instructions: TAKE ONE TABLET BY MOUTH ONCE A DAY Leqvio 284 mg/1.5 mL syringe 284 mg SQ [id number] Qty: 1.5 1RF Repatha Syringe 140 mg/mL syringe 140 mg SQ Q2W Qty: 3 2RF Referrals Follow up/Referrals: Cindi Forde PA [Primary Care Provider] - See instructions Activity Restrictions/Add. Instructions Additional Instructions/Restrictions: Drink plenty of fluids. Take tylenol or ibuprofen for pain or fever. Take the medications as directed. Follow up with your regular doctor. GO TO THE ER FOR ANY WORSENING SYMPTOMS The pyridium will make your urine turn orange, this is an expected side effect. It will stain your clothes if it comes into contact with them. We will culture the urine. That will tell what bacteria is causing your infection and which antibiotics will treat it best.This test takes 3 days to complete. Clinical Impressions Clinical Impression: UTI (urinary tract infection) Instructions Patient Instructions: Urinary Tract Infection, Urine Culture, DI for Urinary Tract Infection (UTI), Phenazopyridine Print Language Print Language: Greek Discharge ED Provider: Klaus Rojas [facility] General Stated complaint: poss UTI Time Seen by Provider: 07/02/24 18:17 Related Data Previous Rx's ?Medication ?Instructions ?Recorded albuterol sulfate 1.25 mg/3 mL 1.25 mg (3 mL) inhalation QID PRN 07/18/23 solution for nebulization shortness of breath or wheezing #90 mL cholecalciferol (vitamin D3) 1,250 See Rx Instructions .Route 07/30/23 mcg (50,000 unit) capsule .COMPLEX #4 caps albuterol sulfate 90 mcg/actuation See Rx Instructions .Route 11/25/23 aerosol inhaler .COMPLEX #8.5 grams tizanidine 2 mg tablet 2 mg PO TID PRN muscle spasticity 12/18/23 21 days #60 tabs fluticasone furoate 200 See Rx Instructions .Route 12/24/23 mcg-vilanterol 25 mcg/dose .COMPLEX #60 blisters inhalation powder losartan 50 mg tablet See Rx Instructions .Route 01/27/24 .COMPLEX #30 tabs sertraline 100 mg tablet See Rx Instructions .Route 03/27/24 .COMPLEX #90 tabs doxycycline hyclate 100 mg tablet 100 mg PO BID #20 tabs 04/20/24 fluticasone fur. 200 mcg-umeclid 1 inh inhalation DAILY #30 ea 04/20/24 62.5 mcg-vilant 25 mcg inhalat.powder (Trelegy Ellipta) prednisone 20 mg tablet 20 mg PO BID #10 tabs 04/20/24 inclisiran 284 mg/1.5 mL 284 mg (1.5 mL) SQ [id number] #1.5 mL 04/21/24 subcutaneous syringe (Leqvio) evolocumab 140 mg/mL subcutaneous 140 mg SQ Q2W #3 mL 05/26/24 syringe (Repatha Syringe) nitrofurantoin 100 mg PO BID #10 caps 07/02/24 monohydrate/macrocrystals 100 mg capsule (Macrobid) ondansetron 4 mg disintegrating 4 mg PO Q8H PRN Nausea #12 tabs 07/02/24 tablet phenazopyridine 200 mg tablet 200 mg PO Q8H 2 days #6 tabs 07/02/24 (Pyridium) Allergies Allergy/AdvReac Type Severity Reaction Status Date / Time codeine Allergy Verified 04/20/24 10:18 [facility] Disclaimer: The information contained in this section may have been updated after the patient was seen, as this information can be updated by other users. Medical History Nicotine dependence COPD (chronic obstructive pulmonary disease) Beverley is taking the tiotropium inhaler with albuterol inhaler as needed. She states that this is helped her shortness of breath and helped improve her lung function. We will just follow this for now. We do need to review Beverley's vaccine history and we will do this when she returns to the clinic. TIA (transient ischemic attack) Surgical History H/O right heart catheterization Social History Smoking Status: Former smoker how long ago did patient quit smokin months ago alcohol intake: never current occupational status: employed and other Travel in the last 8 weeks: None ROS Obtained: Yes All systems reviewed & no additional complaints except as documented Constitutional Constitutional: Reports system reviewed and no additional complaints, except as documented, Denies chills and Denies fever(s) Eyes Eyes: Denies eye discharge ENT Ears, Nose, Mouth, and Throat: Denies dysphagia, Denies sore throat and Denies throat swelling Cardiovascular Cardiovascular: Denies chest pain and Denies dyspnea Respiratory Respiratory: Denies chest congestion, Denies cough and Denies dyspnea Gastrointestinal Gastrointestingal: Denies abdominal pain, constipation, diarrhea, dysphagia, nausea or vomiting Genitourinary Female Genitourinary: Reports as per HPI, Reports dysuria, Reports sexual dy sfunction, Reports urinary frequency, Denies urinary incontinence and Reports urinary hesitancy Musculoskeletal Musculoskeletal: Denies arthralgias and Reports back pain Integumentary/Breasts Skin/Breast: Denies rash Neurologic Neurologic: Denies paresthesias Allergic/Immunologic Allergic/Immunologic: Denies throat swelling Physical Exam General General appearance: alert and in no apparent distress Head Head exam: atraumatic and normocephalic Eye Eye exam: Present normal appearance, PERRL and EOMI ENT ENT exam: Present normal exam, mucous membranes moist, TM's normal bilaterally and normal external ear exam Neck Neck exam: Present normal inspection, full ROM and trachea midline; Absent tenderness, meningismus or lymphadenopathy Chest Chest inspection: Present normal inspection and symmetric chest wall rise; Absent tenderness Respiratory Respiratory exam: Present normal lung sounds bilaterally; Absent respiratory distress, wheezes or stridor Cardiovascular Cardiovascular exam: Present regular rate, normal rhythm and normal heart sounds Abdominal Exam Abdominal exam: Present soft and normal bowel sounds; Absent distention, tenderness, guarding, rebound, rigidity, incision, psoas sign, obturator sign, heel tap sign, Estrada's sign, Rovsing's sign or tenderness at McBurney's Point Extremities Exam Extremities exam: Present normal inspection, full ROM and normal capillary refill; Absent tenderness, edema, joint swelling, calf tenderness or cyanosis Back Exam Back exam: Present normal inspection and full ROM; Absent tenderness, CVA tenderness (R) or CVA tenderness (L) Neurological Exam Neurological exam: Present alert, oriented X3 and normal gait Psychiatric Psychiatric exam: Present normal affect and normal mood Skin Skin exam: Present warm, dry, intact and normal color Lymphatic Lymphatic Findings: no adenopathy Medical Decision Making Medical Records Medical records reviewed: No I reviewed the patient's medical records. Screening: Per USPSTF and CDC recommendations, given the prevalence of disease in our region, it is our hospital?s policy to screen for HIV and viral Hepatitis for all patients aged 18 and over and those with ongoing risk factors. Jc Inquiry Pt receiving controlled substance: No Lab Data Lab results reviewed: Yes I reviewed the patient's lab results.
[2024-07-02 18:36] VITALS: BP 148/83; PULSE 84; RESP 20; TEMP 37.1; O2SAT 96; BMI 26.8
[2024-07-02 18:38] LABS: Apearance,Urine Clear (Clear); Color,Urine Yellow (Yellow); PH,Urine 5.5 (5.0-8.5)
[2024-07-02 18:39] LABS: Bilirubin,Urine 1+ (Negative); Blood, Urine 4+ (Negative); Glucose,Urine (UA) Negative (Negative); Ketones,Urine Negative (Negative); Urobilinogen,Urine 0.2 EU/dl (0.2)
[2024-07-02 18:40] LABS: Protein,Urine 1+ (Negative); UTC Leukocyte Esterase,Urine 1+ (Negative); UTC Nitrate,Urine Negative (Negative)
[2024-07-02] MEDS: cefTRIAXone 1GM VIAL 1 GM IM (18:50)
[2024-07-02] MEDS: LIDOCAINE 1% 5ML PF VIAL IM (18:51)
[2024-07-02] MEDS: PHENAZOPYRIDINE 200MG TABLET 200 MG PO (18:51)
[2024-07-02 19:08] VITALS: BP 148/83; PULSE 84; RESP 20; TEMP 37.1
--- NOTE | 2024-07-05 16:55 | PC.NURSE ---
REVIEWED PATIENT'S URINE CULTURE WITH Joao RENTERIA APRN AT THIS TIME, NO CHANGES NEEDED AT THIS TIME
== END 2024-07-02 19:11 | disposition home or self-care (01) ==
PROVIDERS: Emergency Provider Nurse Practitioner Family; PCP Physician Assistant
DX: N39.0 Urinary tract infection, site not specified (principal); B96.29 Other Escherichia coli [E. coli] as the cause of diseases classified elsewhere
CPT/HCPCS: 81003; 87086; 87088; 87186; 96372; 99212; 99214; G0463; J0696

== ENCOUNTER 2024-08-17 09:45 | Outpatient (CLI) | payer BC, SELFPAY ==
--- NOTE | 2024-08-17 09:49 | CT_ITS ---
FINAL REPORT TECHNIQUE: Thin section axial images were obtained from the lung apices to the upper abdomen by computed tomography. Reformatted images were obtained and reviewed. This study was performed with techniques to keep radiation doses al low as reasonably achievable (ALARA). Individualized dose reduction techniques using automated exposure control or adjustment of mA and/or kV according to the patient's size were employed. CLINICAL HISTORY: .CURRENT SMOKER 1PPD X40 YEARS COMPARISON: 05/14/2022 FINDINGS: CHEST CT LOW DOSE CTDI vol (mGy): 2.90 DLP (mGy-cm): 107.07 There is no axillary adenopathy. There is no mediastinal or hilar mass or adenopathy. The heart is normal in size. There are moderate coronary artery calcifications. There is no pericardial or pleural effusion. There is mild emphysema and mild pulmonary scarring. Lung window images demonstrate interval resolution of the previously noted small right upper lobe nodules. No new mass or nodule is identified. Limited images of the upper abdomen are unremarkable. IMPRESSION: Interval resolution previously noted small right upper lobe nodules. Lung-RADS category 1. Recommend 12 month follow up low dose chest CT. Reviewed, Interpreted and Dictated by Kobe Crockett III, MD Transcribed by Brandi Goetz Authenticated and . [facility]
--- NOTE | 2024-08-17 09:50 | MM_ITS ---
PROCEDURE INFORMATION: Exam: MG Bilateral Screening 3D Mammography Exam date and time: 08/17/2024 9:55 AM Age: 59 years old Clinical indication: Screening. No family history of breast cancer. TECHNIQUE: Imaging protocol: Bilateral Screening tomosynthesis and 2D mammography including computer-aided detection (CAD) when performed. COMPARISON: No relevant prior studies available. If prior mammograms are provided, I am happy to add an addendum. FINDINGS: MAMMOGRAPHY: Breast composition: The breasts are almost entirely fatty. Mass: Oval 0.3 cm mass in the left upper inner quadrant middle 3rd, 6-7 cm from the nipple, CC image [id number] frame 27 and MLO image [id number] frame 37. Architectural distortion: None. Calcifications: No suspicious calcifications. Asymmetric density: None. Skin thickening: None. Axillary adenopathy: None. IMPRESSION: Comparison to prior mammogram will be most helpful. If this is not provided within 2 weeks, patient will be recalled for left sonography for further evaluation of left breast mass. ASSESSMENT: BI-RADS Category 0: Incomplete: Need Additional Imaging Evaluation and/or Prior Mammograms for Comparison
== END 2024-08-17 23:59 | disposition home or self-care (01) ==
LOC: RAD 09:46
PROVIDERS: PCP Physician Assistant; Visit Provider Physician Assistant
DX: Z12.31 Encounter for screening mammogram for malignant neoplasm of breast (principal); F17.200 Nicotine dependence, unspecified, uncomplicated
CPT/HCPCS: 71271; 77063; 77067

== ENCOUNTER 2024-08-31 13:15 | Outpatient (CLI) | payer BC, SELFPAY ==
--- NOTE | 2024-08-31 13:18 | US_ITS ---
PROCEDURE INFORMATION: Exam: US Left Breast, Complete Exam date and time: 08/31/2024 1:25 PM Age: 59 years old Clinical indication: Callback from screening for left breast mass TECHNIQUE: Imaging protocol: Complete ultrasound of all four quadrants of the left breast and the retroareolar regions, including ultrasound of the axilla when performed. COMPARISON: MG MM DIG SCREENING MAMM BI W/CAD 08/17/2024 9:55 AM FINDINGS: ULTRASOUND: Breast ultrasound findings: Left breast ultrasound:No cysts, masses, regions of shadowing or distortion are seen. No abnormal lymph nodes in the axilla. IMPRESSION: No sonographic correlate for the 0.3 cm mass noted on screening mammogram. Recommend six-month follow-up left breast diagnostic mammogram to ensure stability. ASSESSMENT: BI-RADS Category 3: Probably benign.
== END 2024-08-31 23:59 | disposition home or self-care (01) ==
LOC: RAD 13:16
PROVIDERS: PCP Physician Assistant; Visit Provider Physician Assistant
DX: R92.8 Other abnormal and inconclusive findings on diagnostic imaging of breast (principal)
CPT/HCPCS: 76641

== ENCOUNTER 2024-11-30 08:49 | Outpatient (CLI) | payer BC, SELFPAY ==
--- NOTE | 2024-11-30 08:53 | XR_ITS ---
FINAL REPORT TECHNIQUE: Bone mineral density was calculated of the lumbar spine and hip. CLINICAL HISTORY: SCREENING COMPARISON: None FINDINGS: Using L1-4, the bone mineral density of the spine is .932 g/cm2, corresponding to T-score of -1.0. Using the left hip, the bone mineral density of the femoral neck is 0.690 g/cm2, corresponding to a T-score of -1.4. Using the right hip, the bone mineral density of the femoral neck is 0.775 g/cm?, corresponding to a T-score of -1.4. NOTE: T-score: Standard deviation compared with peak bone mass of young adult mean. *Following the recommendations of the International Society of Bone densitometry, classification of hip BMD is based on the lower of two T-scores; total hip or femoral neck. IMPRESSION: Diminished bone mineral density of the bilateral hips consistent with osteopenia. Normal bone mineral density of the lumbar spine. Reviewed, Interpreted and Dictated by Umesh Medeiros MD Transcribed by Kae Neff Authenticated and [facility]
== END 2024-11-30 23:59 | disposition home or self-care (01) ==
LOC: RAD 08:50
PROVIDERS: PCP Physician Assistant; Visit Provider Physician Assistant
DX: E55.9 Vitamin D deficiency, unspecified (principal)
CPT/HCPCS: 77080

== ENCOUNTER 2024-12-07 11:10 | Day surgery (SDC) | payer BC, SELFPAY ==
[2024-12-07 11:24] VITALS: BP 133/76; PULSE 96; RESP 16; TEMP 36.3; O2SAT 97
--- NOTE | 2024-12-07 12:21 | P.PNANES_ITS ---
[facility] Disclaimer: The information contained in this section may have been updated after the patient was seen, as this information can be updated by other users. Medical History Nicotine dependence COPD (chronic obstructive pulmonary disease) TIA (transient ischemic attack) Surgical History (Updated 12/07/24 @ 11:26 by Magdalena Nayak RN) S/P partial hysterectomy History of cholecystectomy H/O right heart catheterization Social History (Updated 12/07/24 @ 11:26 by Magdalena Nayak RN) Smoking Status: Former smoker how long ago did patient quit smokin months ago alcohol intake: never substance use type: denies use current occupational status: employed and other Travel in the last 8 weeks: None caffeine: Yes [facility] Anesthesia Checklist Patient Identification Patient Identification: Arm Band Structural Data Admitted From: Home Planned Operative Procedure/s: Colonoscopy Consent for Planned Operative Procedure(s) Verified: Yes Verified Documents: Surgical Consent and History and Physical NPO Status Verified Time NPO: 07:30 (finished prep) Additional verifications Anesthesia Reactions: No Airway Assessment Mallampati Score:: Class II C-Spine Mobility Assessed: Yes TMJ Mobility Assessed: Yes Dentition: Good Dentition Neurological Assessment Level of Consciousness: Awake, Alert and Appropriate Anesthesia Plan Anesthesia Risk discussed: Yes Anesthesia Plan: Verified ASA Class: II Anesthesia Type: MAC
[2024-12-07 13:20] VITALS: O2SAT 100
--- NOTE | 2024-12-07 13:25 | P.HP_ITS ---
History of Present Illness *Admission Date: 12/07/24 *Reason for visit:: Screening for colon cancer *History of present illness: Mrs. William is a 59-year-old female who is here for initial screening colonoscopy. The examination is deemed medically necessary for screening colonoscopy. The patient has been seen, interviewed and examined prior to the procedure by both myself and the anesthesia provider. [facility] Disclaimer: The information contained in this section may have been updated after the patient was seen, as this information can be updated by other users. Medical History (Updated 12/07/24 @ 13:26 by Lino Pritchard II, MD) Nicotine dependence COPD (chronic obstructive pulmonary disease) TIA (transient ischemic attack) Surgical History (Updated 12/07/24 @ 11:26 by Magdalena Nayak RN) S/P partial hysterectomy History of cholecystectomy H/O right heart catheterization Social History (Updated 12/07/24 @ 12:22 by Stefan Foy CRNA) Smoking Status: Former smoker how long ago did patient quit smokin months ago alcohol intake: never substance use type: denies use current occupational status: employed and other Travel in the last 8 weeks: None caffeine: Yes Have you lived/traveled outside US in past 30 days?: No Contact w/someone who lives/traveled outside US past 30 days?: No Exposure to someone with infectious disease in past 14 days?: No Do you have a fever (greater than 100.4 F or 38 C)?: No Have you tested positive for COVID-19: No Exposed to someone with COVID-19 in past 14 days?: No Do you have a sore throat?: No Do you have a cough?: No Do you have any weakness?: No Do you have any diarrhea?: No Are you experiencing any unusual bleeding?: No Do you have any muscle aches/pain?: No Do you have any abdominal pain?: No Are you experiencing loss of taste or smell?: No Other Medical History Have you received the Flu Vaccine for this season: No Have you received the Pneumonia Vaccine: No Review of Systems Review of Systems Review of systems (narrative): Negative *Cardiovascular Comments: Negative *Gastrointestinal Comments: Negative *Genitourinary Comments: Negative *Musculoskeletal Comments: Negative *Neurologic Comments: Negative Meds Home Medications and Allergies Home Medications ?Medication ?Instructions ?Recorded ?Confirmed ?Type albuterol sulfate 1.25 mg/3 mL 1.25 mg (3 mL) inhalation QID PRN 07/18/23 12/07/24 Rx solution for nebulization shortness of breath or wheezing #90 mL fluticasone fur. 200 mcg-umeclid 1 inh inhalation DAILY #30 ea 04/20/24 12/07/24 Rx 62.5 mcg-vilant 25 mcg inhalat.powder (Trelegy Ellipta) inclisiran 284 mg/1.5 mL 284 mg (1.5 mL) SQ [id number] #1.5 mL 04/21/24 12/07/24 R x subcutaneous syringe (Leqvio) evolocumab 140 mg/mL subcutaneous 140 mg SQ Q2W #3 mL 05/26/24 12/07/24 Rx syringe (Repatha Syringe) ondansetron 4 mg disintegrating 4 mg PO Q8H PRN Nausea #12 tabs 07/02/24 12/07/24 Rx tablet sod picosulf 10 mg-magnes 3.5 175 ml PO DAILY Bowel Prep 2 doses 10/16/24 12/07/24 Rx gram-citric 12 gram/175 mL oral #350 mL solution (Clenpiq) albuterol sulfate 90 mcg/actuation 2 puff inhalation NEEDED PRN 12/07/24 12/07/24 History aerosol inhaler COPD cholecalciferol (vitamin D3) 1,250 1,250 mcg PO WEEKLY 12/07/24 12/07/24 History mcg (50,000 unit) capsule fluticasone furoate 200 1 inh inhalation DAILY 12/07/24 12/07/24 History mcg-vilanterol 25 mcg/dose inhalation powder losartan 50 mg tablet 50 mg PO DAILY 12/07/24 12/07/24 History sertraline 100 mg tablet 100 mg PO ONCE 12/07/24 12/07/24 History New Prescriptions to Start Prescriptions: Allergies Allergy/AdvReac Type Severity Reaction Status Date / Time codeine Allergy Anaphylaxis Verified 12/07/24 11:32 Exam Data for Last 24 hours Vital signs and Labs for Last 24 Hours: Temp Pulse Resp BP Pulse Ox O2 Del Method O2 Flow Rate 97.4 F L 96 H 16 133/76 97 Nasal Cannula 5 12/07/24 11:24 12/07/24 11:24 12/07/24 11:24 12/07/24 11:24 12/07/24 11:24 12/07/24 13:20 12/07/24 13:20 *Routine HEENT Exam Head: Present normocephalic Eye: Present EOMI and PERRL ENT: Present mucous membranes moist *Routine Neck Exam Neck: Present supple *Routine Respiratory Exam Respiratory: Present CTA bilaterally *Routine Cardiovascular Exam Cardiovascular: Present RRR *Routine Abdominal Exam Abdominal: Present soft and normoactive bowel sounds; Absent tenderness *Routine Rectal Exam Rectal:: deferred *Routine Genitalia Exam Genitalia:: deferred *Routine Extremities Exam Extremities: Absent cyanosis, clubbing or edema *Routine Skin Exam Skin: Present warm; Absent rash *Routine Neurological Exam Neurological: Present alert and oriented X3 Assessment and Plan *Assessment and plan (1) Screening for colon cancer: Status: Acute Category: Medical Code(s): Z12.11 - Encounter for screening for malignant neoplasm of colon Plan A/P: 1. Screening for colon cancer is the preprocedural diagnosis. The patient will be anesthetized/sedated using MAC sedation. The patient has been seen and examined. Cardiac and lung assessment prior to the examination is stable. Proceed with planned screening colonoscopy
--- NOTE | 2024-12-07 13:26 | HMH.PROCNOTE ---
[facility] Procedure Note Date: 12/07/24 Time: 13:52 Procedure Note:: Colonoscopy Procedure Report: Colonoscopy with cold snare polypectomy Endoscopist: Lino Pritchard II, MD Referring physician: Cindi Forde PA-C Date of Procedure: December 07, 2024 Equipment: Olympus 190 variable stiffness pediatric colonoscope Sedation: MAC sedation Indication: Mrs. William is a 59-year-old female who is here for initial screening colonoscopy. She did have a negative Cologuard in April 2022. She has never had a colonoscopy. She reports no abdominal pain, weight loss, change in her bowel habits or rectal bleeding. She does have some chronic constipation. She reports no family history of colon cancer. Her daughter has Crohn's disease. She also has an aunt and cousin with Crohn's disease. Procedure: Prior to the procedure, a history and physical exam was performed, and patient's medications and allergies were reviewed. The risks, benefits and alternatives of the sedation and procedure were discussed with the patient. All questions were answered and informed consent was obtained. The patient was brought to the procedure room. Patient identification and proposed procedure were verified by the physician and the nurse. The patient was placed in a left lateral decubitus position and the scope was passed under direct vision. Throughout the procedure, the patient's blood pressure, pulse, and oxygen saturations were monitored continuously. The colonoscopy was accomplished without difficulty. The patient tolerated the procedure well. Findings: On digital rectal examination there was normal rectal tone. There were no external hemorrhoids. The colonoscope was introduced through the anal canal to the rectum and advanced to the cecum. The ileocecal valve and appendiceal orifice were identified. The scope was advanced a short distance into the ileum which appeared grossly normal. The scope was then withdrawn into the colon. There were 9 colon polyps (ascending x 1 (4 mm), descending x 2 (3 and 5 mm), sigmoid x 1 (4 mm) and rectosigmoid and rectum x 5 (3, 4, 4, 4 and 5 mm)). The remaining cecum, ascending and transverse colon and mucosa were grossly normal. There were scattered diverticuli throughout the descending and sigmoid colon (LEFT colon). The rectum itself was normal. Upon retroflexion within the rectum there were grade 2 internal hemorrhoids. The preparation was excellent throughout with Saucier Preparation Score of 9. The cecal time was 16 minutes. Impression: 1. Diminutive colonic polyps x 9 2. Left-sided diverticulosis 3. Grade 2 internal hemorrhoids Plan: I will follow-up the polyp histology and recommend repeat surveillance colonoscopy again in 3 years based upon the pathology. I would encourage psyllium bulking fiber supplementation on a maintenance basis.
[2024-12-07 13:55] VITALS: BP 104/58; PULSE 65; RESP 20; TEMP 36.3; O2SAT 96
[2024-12-07 14:05] VITALS: BP 135/62; PULSE 79; RESP 20; O2SAT 97
[2024-12-07 14:15] VITALS: BP 142/70; PULSE 81; RESP 20; O2SAT 97
[2024-12-07 14:25] VITALS: BP 140/77; PULSE 77; RESP 20; O2SAT 97
== END 2024-12-07 14:37 | disposition home or self-care (01) ==
PROVIDERS: PCP Physician Assistant; Visit Provider Internal Medicine Gastroenterology
PROC: 0DJD8ZZ Inspection of Lower Intestinal Tract, Via Natural or Artificial Opening Endoscopic (ICD-10-PCS; CPT 45378; principal; 2024-12-07 13:00)
DX: K63.5 Polyp of colon (principal); K57.30 Diverticulosis of large intestine without perforation or abscess without bleeding; K64.1 Second degree hemorrhoids; Z12.11 Encounter for screening for malignant neoplasm of colon; K59.00 Constipation, unspecified
CPT/HCPCS: 45385

== ENCOUNTER 2025-04-27 18:04 | Emergency (ER) | payer BC, SELFPAY ==
[2025-04-27 18:07] VITALS: BP 161/75; PULSE 79; RESP 18; TEMP 36.8; O2SAT 98; BMI 30.9
--- NOTE | 2025-04-27 18:13 | ED_ITS ---
<Statement entered by Pippa Boyd DO - 04/28/25 20:33> I was consulted by the STEVIE, and we discussed the complexity of problems being addressed. I approve the treatment and management plan for this patient's care in the emergency department, thus performing a substantial portion of the medical decision making. Pippa Boyd DO Discharge Plan Disposition Patient Disposition: Home, Self-Care Condition: Good Prescriptions Prescriptions: New sulfamethoxazole-trimethoprim [Bactrim DS] 800-160 mg tablet 1 tab PO BID 5 Days Qty: 10 0RF No Action Trelegy Ellipta 200-62.5-25 mcg blister with device 1 inh inhalation DAILY Qty: 30 2RF albuterol sulfate 1.25 mg/3 mL solution for nebulization 1.25 mg IH QID PRN (Reason: shortness of breath or wheezing) Qty: 90 5RF Leqvio 284 mg/1.5 mL syringe 284 mg SQ [id number] Qty: 1.5 1RF Repatha Syringe 140 mg/mL syringe 140 mg SQ Q2W Qty: 3 2RF Clenpiq 10 mg-3.5 gram- 12 gram/175 mL solution 175 ml PO DAILY 0 Days Qty: 350 0RF Rx Instructions: take first dose at 5-9PM evening before colonoscopy; 2nd dose the next day approximately 5 hrs before colonoscopy ondansetron 4 mg Tablet,Disintegrating 4 mg PO Q8H PRN (Reason: Nausea) Qty: 12 0RF losartan 50 mg tablet 50 mg PO DAILY sertraline 100 mg tablet 100 mg PO ONCE albuterol sulfate 90 mcg/actuation HFA aerosol inhaler 2 puff inhalation NEEDED PRN (Reason: COPD) cholecalciferol (vitamin D3) 1,250 mcg (50,000 unit) capsule 1,250 mcg PO WEEKLY fluticasone furoate-vilanterol 200-25 mcg/dose blister with device 1 inh inhalation DAILY Referrals Follow up/Referrals: Cindi Forde PA [Primary Care Provider, Medical] - See instructions Activity Restrictions/Add. Instructions Additional Instructions/Restrictions: I recommend continuing taking Tylenol alternating with Motrin for your symptoms. I have sent an antibiotic into your pharmacy. Please take it till its gone. If you have persistent new or worsening signs or symptoms follow-up with your PCP return to the ER as needed. Clinical Impressions Clinical Impression: Right upper quadrant abdominal pain Urinary tract infectious disease Qualifiers: Urinary tract infection type: site unspecified Hematuria presence: with hematuria Qualified Code(s): N39.0 - Urinary tract infection, site not specified Instructions Patient Instructions: DI for Acute Abdominal Pain Print Language Print Language: Chinese Discharge ED Provider: Pippa Boyd General Adult HPI General Chief complaint: Abdominal Pain Stated complaint: abdominal pain Time Seen by Provider: 04/27/25 18:13 Mode of Arrival: Ambulatory Source of Information: Patient Description of Symptoms (Recalled from ER Triage Doc. by RN): Pt presents with c/o RUQ abdominal pain that started several months ago but states the pain became worse today. Pt states she has nuasea/diarrhea History of Present Illness HPI narrative: Patient presents for evaluation of right upper quadrant abdominal pain. Patient had a cholecystectomy done in an open fashion more than 20 years ago. Patient reports that for the last several months she has been having intermittent right upper quadrant abdominal pain located along her surgical scar. However over the last 24 hours she has had very significant focal pain in that area. She denies any vomiting diarrhea but reports nausea. She is passing flatus and stool. She has no difficulty with eating or drinking. She denies any chest pain shortness of breath hemoptysis hematochezia melena hematemesis hematuria dysuria or flank pain. Related Data Home Medications ?Medication ?Instructions ?Recorded ?Confirmed albuterol sulfate 90 mcg/actuation 2 puff inhalation A S NEEDED PRN 12/07/24 12/07/24 aerosol inhaler COPD cholecalciferol (vitamin D3) 1,250 1,250 mcg PO WEEKLY 12/07/24 12/07/24 mcg (50,000 unit) capsule fluticasone furoate 200 1 inh inhalation DAILY 12/0712/07/24 mcg-vilanterol 25 mcg/dose inhalation powder losartan 50 mg tablet 50 mg PO DAILY 12/07/2412/29 sertraline 100 mg tablet 100 mg PO ONCE 12/07/2412/29 Previous Rx's ?Medication ?Instructions ?Recorded albuterol sulfate 1.25 mg/3 mL 1.25 mg (3 mL) inhalati on QID PRN 07/18/23 solution for nebulization shortness of breath or wheez ing #90 mL fluticasone fur. 200 mcg-umeclid 1 inh inhalation SVEN Y #30 ea 04/20/24 62.5 mcg-vilant 25 mcg inhalat.powder (Trelegy Ellipta) inclisiran 284 mg/1.5 mL 284 mg (1.5 mL) SQ [id number] #1.5 mL 04/21/24 subcutaneous syringe (Leqvio) evolocumab 140 mg/mL subcutaneous 140 mg SQ Q2W #3 mL 05/26/24 syringe (Repatha Syringe) ondansetron 4 mg disintegrating 4 mg PO Q8H PRN Nausea #12 tabs 07/02/24 tablet sod picosulf 10 mg-magnes 3.5 175 ml PO DAILY Bowel Pr ep 2 doses 10/16/24 gram-citric 12 gram/175 mL oral #350 mL solution (Clenpiq) sulfamethoxazole 800 1 tab PO BID 5 days #10 tabs 04/27/25 mg-trimethoprim 160 mg tablet (Bactrim DS) Allergies Allergy/AdvReac Type Severity Reaction Status Date / Time codeine Allergy Anaphylaxis Verified 12/07/24 11:32 [facility] Disclaimer: The information contained in this section may have been updated after the patient was seen, as this information can be updated by other users. Medical History (Updated 04/27/25 @ 20:45 by ANA Murcia) Nicotine dependence COPD (chronic obstructive pulmonary disease) TIA (transient ischemic attack) Surgical History (Updated 12/07/24 @ 11:26 by Magdalena Nayak RN) S/P partial hysterectomy History of cholecystectomy H/O right heart catheterization Social History (Updated 12/07/24 @ 12:22 by Stefan Foy CRNA) Smoking Status: Current every day smoker how long ago did patient quit smokin months ago alcohol intake: never substance use type: denies use current occupational status: employed and other Travel in the last 8 weeks?: None caffeine: Yes Have you lived/traveled outside US in past 30 days?: No Contact w/someone who lives/traveled outside US past 30 days?: No Exposure to someone with infectious disease in past 14 days?: No Do you have a fever (greater than 100.4 F or 38 C)?: No Have you tested positive for COVID-19?: No Exposed to someone with COVID-19 in past 14 days?: No Do you have a sore throat?: No Do you have a cough?: No Do you have any weakness?: No Do you have any diarrhea?: No Are you experiencing any unusual bleeding?: No Do you have any muscle aches/pain?: No Do you have any abdominal pain?: No Are you experiencing loss of taste or smell?: No Other Medical History Have you received the Flu Vaccine for this season: No Have you received the Pneumonia Vaccine: No ROS Obtained: Yes Systems reviewed as appropriate & no additional complaints except as documented Physical Exam General General appearance: alert and in no apparent distress Respiratory Respiratory exam: Present normal lung sounds bilaterally Cardiovascular Cardiovascular exam: Present regular rate Neurological Exam Neurological exam: Present alert and oriented X3 Medical Decision Making Medical Records Medical records reviewed: Yes I reviewed the patient's medical records. Screening: Per USPSTF and CDC recommendations, given the prevalence of disease in our region, it is our hospital?s policy to screen for HIV and viral Hepatitis for all patients aged 18 and over and those with ongoing risk factors. Jc Inquiry Pt receiving controlled substance: No Vital Signs: 04/27/25 18:07 04/27/25 21:00 Temperature 98.3 F 97.9 F Temperature Source Oral Oral Pulse Rate 65 Pulse Rate [Right] 79 Respiratory Rate 18 18 Blood Pressure 131/66 Blood Pressure [Right Arm] 161/75 H Blood Pressure Mean [Right Arm] 103 Blood Pressure Source Automatic Cuff Blood Pressure Source [Right Arm] Automatic Cuff Blood Pressure Position Sitting Blood Pressure Position [Right Arm] Sitting 02 Sat by Pulse Oximetry 98 Oxygen Delivery Method Room Air Room Air Lab Data Lab results reviewed: Yes I reviewed the patient's lab results. Lab Results 04/27/25 18:14: Urine Color Yellow, Urine Appearance Clear, Urine pH 6.0, Ur Specific [place] 1.020, Urine Protein Negative, Urine Glucose (UA) Negative, Urine Ketones Negative, Urine Blood 2+ A, Urine Nitrate Negative, Urine Bilirubin Negative, Urine Urobilinogen 0.2, Ur Leukocyte Esterase 2+ A, Urine RBC 5-10, Urine WBC Tntc, Ur Squamous Epith Cells 10-20, Urine Bacteria 2+ 04/27/25 18:22: WBC 11.0 H, RBC 4.75, Hgb 15.1, Hct 44.6, MCV 93.9, MCH 31.8 H, MCHC 33.9, RDW 13.0, Plt Count 326, MPV 10.3, Neut % (Auto) 55.3, Lymph % (Auto) 28.5, [place] % (Auto) 10.6 H, Eos % (Auto) 3.6, Baso % (Auto) 1.7, Neut # (Auto) 6.1, Lymph # (Auto) 3.1, [place] # (Auto) 1.2 H, Eos # (Auto) 0.4, Baso # (Auto) 0.2, Sodium 140, Potassium 3.8, Chloride 105, Carbon Dioxide 31 H, Anion Gap 7.8, BUN 12, Creatinine 0.80, Estimated Creat Clear 80, Estimated GFR 73, Est GFR ( Amer) 88, Glucose 100, Calcium 9.8, Total Bilirubin 0.6, AST 27, ALT 23, Alkaline Phosphatase 64, Total Protein 7.2, Albumin 4.6, Globulin 2.6, Albumin/Globulin Ratio 1.8, Procalcitonin 0.035 04/27/25 18:45: Lactate 0.9 04/27/25 18:22 04/27/25 18:22 Orders (Tests/Meds): ED MEDICATIONS Discontinued Medications Generic Name Dose Route Start Last Admin Trade Name Freq PRN Reason Stop Dose Admin Acetaminophen 1,000 mg 04/27/25 18:27 04/27/25 18:45 Acetaminophen 500mg Tab PO 04/27/25 18:28 1,000 mg ONCE ONE Administration Sodium Chloride 1,000 mls @ 999 mls/hr 04/27/25 18:27 04/27/25 18:45 Sod Chlor 0.9% 1000ml Bag IV 04/27/25 19:27 999 mls/hr .Q1H1M ONE Administration Ceftriaxone Sodium 2 gm/ 100 mls @ 200 mls/hr 04/27/25 19:45 04/27/25 20:07 Sodium Chloride IV 05/07/25 19:44 200 mls/hr Q24H NINFA Administration Iopamidol 75 ml 04/27/25 19:28 04/27/25 19:29 Iopamidol-370 (76%);100ml Bottle IV 04/27/25 19:29 75 ml ONCE ONE Administration Ketorolac Tromethamine 15 mg 04/27/25 18:27 04/27/25 18:45 Ketorolac 30mg/Ml Vial IV 04/27/25 18:28 15 mg ONCE ONE Administration Ondansetron HCl 4 mg 04/27/25 18:27 04/27/25 18:45 Ondansetron 4mg/2ml Vial IV 04/27/25 18:28 4 mg ONCE ONE Administration Sodium Chloride 10 ml 04/27/25 19:28 04/27/25 19:29 Sodium Chloride 0.9% 10ml Syr (Rad Only) IV 04/27/25 19:29 10 ml ONCE ONE Administration ORDERS Category Date Time Status CT abdomen pelvis w con Stat Cat Scan 04/27/25 18:27 Completed CBC w/Auto Diff [Complete Blood Count Auto Diff] Stat Lab 04/27/25 18:22 Completed CMP [Comprehensive Metabolic Panel] Stat Lab 04/27/25 18:22 Completed Lactic Acid Stat Lab 04/27/25 18:45 Completed Procalcitonin Stat Lab 04/27/25 18:22 Completed Urinalysis and Microscopic Stat Lab 04/27/25 18:14 Completed Urine Culture Stat Micro 04/27/25 18:14 Received Medical Decision Narrative: In summary patient is a 60-year-old female who presents to the emergency department for evaluation of right upper quadrant abdominal pain. Patient is hemodynamically stable with a blood pressure 161/75 pulse 79 sinus rhythm on the bedside monitor breathing 18 times a minute satting at 98% on room air upon arrival, afebrile at 98.3. Physical exam is remarkable for focal tenderness in the right upper quadrant particularly over her subcostal incision in the right upper quadrant. There is not however any palpable swelling or mass edema or erythema. The remainder of the abdomen is soft nontender no rebound or guarding or rigidity with normal bowel sounds. There is no CVA tenderness to percussion. Breath sounds clear equal bilateral to the bases without adventitious sounds.. Differential diagnosis includes abdominal wall hernia versus bowel obstruction versus adhesions versus, bile duct stone etc. Initial workup will be conducted with hematologic labs urinalysis CT scan abdomen pelvis. Initial interventions include crystalloid bolus Toradol Tylenol Zofran. Initial workup reviewed by me and her hematologic labs are significant for white count of 11 hemoglobin hematocrit are normal absolute neutrophil count is 6.1, the remainder of her hematologic labs are nonactionable including a normal procalcitonin of 0.035 and normal transaminases and bilirubin. Urinalysis shows 2+ of blood 2+ leukocyte Estrace microscopic exam shows 5-10 red blood cells too numerous to count white cells 10-20 squamous epithelial cells and 2+ bacteria. My informal interpretation of her CT scan abdomen pelvis does not show any evidence of acute intra-abdominal pathology however she does have a very thickened bladder wall there is no stranding around the kidney no evidence of stone or obstruction. Please see final read for formal interpretation. Upon repeat evaluation patient reported complete resolution of her symptoms after initial intervention.. Given this there does remain diagnostic uncertainty as to the cause of her discomfort however we have essentially ruled out any serious or life-threatening condition currently and we did identify urinary tract infection which could be possibly contributing thus I will treat her for the such. She was given a dose of Rocephin in the emergency department and will be given a prescription for Bactrim. Patient advised that should she have any persistent new or worsening signs or symptoms follow-up with her PCP or return to the ER as needed. Critical Care Critical Care Time Critical Care Time: No
--- OUTSIDE RECORDS SUMMARY | 2025-04-27 18:15 | XMS_ITS ---
Author Organization Unknown Medications Medication Instructions Effective Dates (start - stop) Status 30 ACTUAT fluticasone furoat e 0.2 MG/ACTUAT / vilanterol 0.025 MG/ACTUAT Dry Powder Inhaler [Breo] [id number]:00:0 0.000+00: 00 - Completed 30 ACTUAT fluticasone furoat e 0.2 MG/ACTUAT / vilanterol 0.025 MG/ACTUAT Dry Powder Inhaler [Breo] [id number]:00:0 0.000+00: 00 - Completed 30 ACTUAT fluticasone furoat e 0.2 MG/ACTUAT / vilanterol 0.025 MG/ACTUAT Dry Powder Inhaler [Breo] [id number]:00:0 0.000+00: 00 - Completed sulfamethoxazole 800 MG / trimethoprim 160 MG Oral Tablet [id number]:00:00.00 0+00: 00 - Completed tiotropium 0.018 MG Inhalati on Powder [Spiriva] [id number]:00:00.000+00: 00 - Completed tiotropium 0.018 MG Inhalati on Powder [Spiriva] [id number]:00:00.000+00: 00 - Completed tiotropium 0.018 MG Inhalati on Powder [Spiriva] [id number]:00:00.000+00: 00 - Completed albuterol 0.417 MG/ML Inhala tion Solution [id number]:00:00.000+00: 00 - Completed 0.5 ML semaglutide 0.5 MG/ML Auto-Injector [Wegovy] [id number]:00:00.000+00: 00 - Completed - 1312-40-52L90:00 :00.000+00: 00 - Completed - 2215-83-21U10:00 :00.000+00: 00 - Completed sertraline 25 MG Oral Tablet 11-15-11:00:00.000+00: 00 - Completed doxycycline monohydrate 100 MG Oral Capsule [id number]:00:00.000+00: 00 - Completed sertraline 100 MG Oral Tablet 26-02-09:00:00.000+00: 00 - Completed sertraline 100 MG Oral Tablet 20 27-12-09:00:00.000+00: 00 - Completed sertraline 100 MG Oral Tablet 29-11-05:00:00.000+00: 00 - Completed sertraline 100 MG Oral Tablet 29-10-02:00:00.000+00: 00 - Completed sertraline 100 MG Oral Tablet 20 28-08-28:00:00.000+00: 00 - Completed sertraline 100 MG Oral Tablet 28-07-31:00:00.000+00: 00 - Completed sertraline 100 MG Oral Tablet 20 28-07-03:00:00.000+00: 00 - Completed cefdinir 300 MG Oral Capsule 11-14-15:00:00.000+00: 00 - Completed lisinopril 10 MG Oral Tablet 11-16-06:00:00.000+00: 00 - Completed lisinopril 10 MG Oral Tablet 11-15-11:00:00.000+00: 00 - Completed {21 (methylprednisolone 4 MG Oral Tablet) } Pack [id number]:00:00.000+00: 00 - Completed sertraline 100 MG Oral Tablet 28-04-06:00:00.000+00: 00 - Completed minocycline 100 MG Oral Capsule 1625-54-90E55:00:00.000+00: 00 - Completed ciprofloxacin 500 MG Oral Tablet 7755-85-18W14:00:00.000+00: 00 - Completed sertraline 100 MG Oral Tablet 20 29-03-07:00:00.000+00: 00 - Completed sertraline 100 MG Oral Tablet 20 27-01-11:00:00.000+00: 00 - Completed nebivolol 5 MG Oral Tablet :00:00.000+00: 00 - Completed nebivolol 5 MG Oral Tablet :00:00.000+00: 00 - Completed nebivolol 5 MG Oral Tablet :00:00.000+00: 00 - Completed nebivolol 5 MG Oral Tablet :00:00.000+00: 00 - Completed nebivolol 5 MG Oral Tablet :00:00.000+00: 00 - Completed atorvastatin 10 MG Oral Tablet 2 843-06-67P06:00:00.000+00: 00 - Completed atorvastatin 10 MG Oral Tablet 2 123-22-06B29:00:00.000+00: 00 - Completed atorvastatin 10 MG Oral Tablet 2 669-75-83B48:00:00.000+00: 00 - Completed atorvastatin 10 MG Oral Tablet 2 104-68-02F15:00:00.000+00: 00 - Completed atorvastatin 10 MG Oral Tablet 2 343-87-39J37:00:00.000+00: 00 - Completed atorvastatin 10 MG Oral Tablet 2 [id number]:00:00.000+00: 00 - Completed atorvastatin 10 MG Oral Tablet 2 220-42-35Z05:00:00.000+00: 00 - Completed atorvastatin 10 MG Oral Tablet 2 567-41-61C07:00:00.000+00: 00 - Completed atorvastatin 10 MG Oral Tablet 2 585-27-69L36:00:00.000+00: 00 - Completed atorvastatin 10 MG Oral Tablet 2 606-05-57R15:00:00.000+00: 00 - Completed prednisone 20 MG Oral Tablet 202 12-12-23:00:00.000+00: 00 - Completed prednisone 20 MG Oral Tablet 202 11-14-15:00:00.000+00: 00 - Completed atomoxetine 60 MG Oral Capsule 2 139-23-02N12:00:00.000+00: 00 - Completed {11 (varenicline 0.5 MG Oral Tablet) / 42 (varenicline 1 MG Oral Tablet) } Pack [id number]:00:00.000+00: 00 - Completed varenicline 1 MG Oral Tablet 11-16-06T:00:00.000+00: 00 - Completed - [id number]:00 :00.000+00: 00 - Completed - 1142-74-25I73:00 :00.000+00: 00 - Completed - 5903-99-39C67:00 :00.000+00: 00 - Completed losartan potassium 50 MG Ora l Tablet 4647-54-16W96:00:00.000+00: 00 - Completed losartan potassium 50 MG Ora l Tablet 5854-99-48R80:00:00.000+00: 00 - Completed losartan potassium 50 MG Ora l Tablet 3832-00-30K32:00:00.000+00: 00 - Completed losartan potassium 50 MG Ora l Tablet [id number]:00:00.000+00: 00 - Completed losartan potassium 25 MG Ora l Tablet 6518-22-98E68:00:00.000+00: 00 - Completed losartan potassium 25 MG Ora l Tablet 1717-00-16P29:00:00.000+00: 00 - Completed benzonatate 200 MG Oral Capsule 6838-88-59L29:00:00.000+00: 00 - Completed losartan potassium 25 MG Ora l Tablet 1141-73-65P62:00:00.000+00: 00 - Completed losartan potassium 25 MG Ora l Tablet 0881-00-32L85:00:00.000+00: 00 - Completed losartan potassium 25 MG Ora l Tablet 0577-43-43P15:00:00.000+00: 00 - Completed Patient Care team information Name Category Status Period Participants - - Proposed period not known -
[2025-04-27 18:19] LABS: Microscopic, Urine URINE MICROSCOPIC (MICROSCOPIC)
[2025-04-27 18:22] LABS: Bilirubin,Urine Negative (Negative); Color,Urine YELLOW (Yellow); Glucose,Urine (UA) Negative (Negative); Ketones,Urine Negative (Negative); Leukocyte Esterase,Urine 2+ (Negative); PH,Urine 6.0 (5.0-8.5); Protein,Urine Negative (Negative); Specific Gravity, Urine 1.020 (1.005-1.030); Urobilinogen,Urine 0.2 EU/dl (0.2)
--- NOTE | 2025-04-27 18:27 | CT_ITS ---
PROCEDURE INFORMATION: Exam: CT Abdomen And Pelvis With Contrast Exam date and time: 04/27/2025 7:30 PM Age: 60 years old Clinical indication: Abdominal pain; Additional info: Ruq abd pain, S/P open porfirio remotely TECHNIQUE: Imaging protocol: Computed tomography of the abdomen and pelvis with contrast. Radiation optimization: All CT scans at this facility use at least one of these dose optimization techniques: automated exposure control; mA and/or kV adjustment per patient size (includes targeted exams where dose is matched to clinical indication); or iterative reconstruction. Contrast material: ISOVUE; Contrast volume: 75 ml; Contrast route: IV; COMPARISON: CT ABDOMEN PELVIS W CON 07/12/2023 2:51 PM FINDINGS: Liver: Posterior right hepatic cavernous hemangioma measuring 1.8 cm. Gallbladder and biliary ducts: Gallbladder is absent. The common duct measures up to 12 mm in diameter, which is abnormal. This is unchanged compared to prior study suggesting that this represents post cholecystectomy ectasia. Pancreas: Normal. No ductal dilation. Spleen: Normal. No splenomegaly. Adrenal glands: Normal. No mass. Kidneys and ureters: Low attenuation renal lesions measuring up to 9 mm in diameter are incompletely characterized, but are likely cysts. No followup imaging is warranted. Stomach and bowel: Unremarkable. No obstruction. No mucosal thickening. Appendix: Unremarkable appendix. Intraperitoneal space: Unremarkable. No free air. No significant fluid collection. Vasculature: See Liver finding. Lymph nodes: Unremarkable. No enlarged lymph nodes. Urinary bladder: Mild nonspecific urinary bladder wall thickening. Reproductive: Bilateral tubal ligation clips. Status post hysterectomy. Bones/joints: Unremarkable. No acute fracture. Soft tissues: Unremarkable. Other findings: Stigmata of old granulomatous disease. IMPRESSION: 1. The common duct measures up to 12 mm in diameter, which is abnormal. This is unchanged compared to prior study suggesting that this represents post cholecystectomy ectasia. However, if there is clinical evidence of biliary obstruction, MRCP could be performed to exclude noncalcified choledocholithiasis. 2. Mild nonspecific urinary bladder wall thickening. Please exclude infection. COMMENTS: Consistent with the [employer]'s Incidental Findings Committee white paper (J Am Rochelle Radiol 2018): Any incidental renal lesion less than 1 cm or classified as too small to characterize, or any incidental cystic renal lesion characterized as simple-appearing, is likely benign. No follow-up imaging is recommended for these lesions per consensus recommendations based on imaging criteria.
[2025-04-27 18:34] LABS: Hematocrit 44.6 % (37.0-47.0); Hemoglobin 15.1 g/dL (12.2-16.2); Immature Granulocytes % 0.3 %; Mean Corpuscular HGB Conc 33.9 g/dL (31.8-35.4); Mean Corpuscular Hemoglobin 31.8 pg (27.0-31.2); Mean Corpuscular Volume 93.9 fl (81-99); Nucleated Red Blood Cells % 0 %; Platelet Count 326 K/mm3 (142-424); Red Blood Count 4.75 M/mm3 (4.20-5.40); Red Cell Distribution Width-SD 44.6 fL; White Blood Count 11.0 K/mm3 (4.8-10.8)
[2025-04-27 18:36] LABS: Bacteria,Urine 2+ /lpf; WBC,Urine TNTC #/hpf (0-3)
[2025-04-27] MEDS: KETOROLAC 30MG/ML VIAL 15 MG IV (18:45)
[2025-04-27] MEDS: ONDANSETRON 4MG/2ML VIAL 4 MG IV (18:45)
[2025-04-27] MEDS: ACETAMINOPHEN 500MG TAB 1000 MG PO (18:45)
[2025-04-27] MEDS: 0.9 % SODIUM CHLORIDE 1000ML 1,000 ML 999 ML IV (18:45)
[2025-04-27 18:59] LABS: Alanine Aminotransferase 23 U/L (12-78); Albumin Level 4.6 g/dl (3.5-5.0); Albumin/Globulin Ratio 1.8 (1.1-1.8); Alkaline Phosphatase 64 U/L (38-126); Anion Gap 7.8 mEq/L (5-15); Aspartate Amino Transferase 27 U/L (14-36); Bilirubin,Total 0.6 mg/dl (0.2-1.3); Blood Urea Nitrogen 12 mg/dl (7-17); Calcium 9.8 mg/dl (8.4-10.2); Carbon Dioxide 31 mmol/L (22.0-30.0); Chloride 105 mmol/L (98-107); Creatinine Clearance Estimated 80 mL/min (50-200); Creatinine,Serum 0.80 mg/dl (0.52-1.04); Estimated Glomerular Filt Rate 73 ml/min (>60); GFR (African American) 88 ML/MIN (>60); Globulin 2.6 g/dL (1.3-3.2); Glucose 100 mg/dl (74-100); Potassium 3.8 mmoL/L (3.5-5.1); Sodium 140 mmol/L (136-145); Total Protein,Serum 7.2 g/dl (6.3-8.2)
[2025-04-27 19:15] LABS: Procalcitonin 0.035 ng/mL (0.0-2.0)
[2025-04-27] MEDS: SODIUM CHLORIDE 0.9% 10ML SYR (RAD ONLY) 10 ML IV (19:29)
[2025-04-27] MEDS: IOPAMIDOL-370 (76%);100ML BOTTLE 75 ML IV (19:29)
[2025-04-27 21:00] VITALS: BP 131/66; PULSE 65; RESP 18; TEMP 36.6; O2SAT 98
--- NOTE | 2025-04-30 11:49 | PC.NURSE ---
Urine culture results reviewed by Dr. Calix- antibiotics changed to cefedroxil 500 mg BID x 10 days. Sent to [facility]. Called patient to notify her, no answer. Left message for her to call me back.
--- NOTE | 2025-04-30 13:40 | PC.NURSE ---
Patient returned phone call regarding antibiotics and urine culture- advised new antibiotics had been sent to pharmacy and to stop previous prescription. Patient verbalized understanding.
== END 2025-04-27 20:59 | disposition home or self-care (01) ==
PROVIDERS: Physician Assistant; Emergency Provider Student in an Organized Health Care Education/Training Program; PCP Physician Assistant
DX: R10.11 Right upper quadrant pain (principal); N39.0 Urinary tract infection, site not specified; J44.1 Chronic obstructive pulmonary disease with (acute) exacerbation; F32.A Depression, unspecified; I10 Essential (primary) hypertension; I73.9 Peripheral vascular disease, unspecified; I51.7 Cardiomegaly; E78.5 Hyperlipidemia, unspecified; F17.210 Nicotine dependence, cigarettes, uncomplicated
CPT/HCPCS: 74177; 80053; 81001; 83605; 84145; 85025; 87086; 87088; 87186; 96361; 96365; 96375; 99285; J0696; J1885; J2405; J7030; Q9967

== ENCOUNTER 2025-06-14 09:17 | Outpatient (CLI) | payer BC, SELFPAY ==
--- OUTSIDE RECORDS SUMMARY | 2025-06-14 09:25 | XMS_ITS | Clinical Summary ---
Author Organization [facility] Address [address] [place] [address] Care Team Providers Care Cooler Room Worker Name Role Phone Cindi Forde Primary Care Provider [phone] Allergies Active Allergy Reactions Criticality Noted Date Comments Codeine Itching 02/17/2018 Medications atorvastatin (LIPITOR) 10 MG tablet Take 1 tablet by mouth Daily. Active sertraline (ZOLOFT) 50 MG tablet Take 2 tablets by mouth Daily. Active Cholecalciferol (Vitamin D3) 1.25 MG (08535 UT) capsule 12/14/2022 Active losartan (Cozaar) 50 MG tablet Take 1 tablet by mouth Daily. 30 tablet 11 12/31/2022 Active Active Problems Problem Noted Date Diagnosed Date Abnormal stress test 10/17/2022 Overview (10/17/2022): Added automatically from request for surgery [id number] Menopause 02/17/2018 Fibrocystic breast changes, bilateral 02/17/2018 Urge urinary incontinence 02/17/2018 Varicose veins of legs TIA (transient ischemic attack) OAB (overactive bladder) Family History Medical History Relation Name Comments Coronary artery disease Father Cardiomyopathy Mother Osteoporosis Mother Breast cancer Neg Hx Ovarian cancer Neg Hx Relation Name Status Comments Father Mother Social History Tobacco Use Types Packs/Day Years Used Date Smoking Tobacco: Former Cigarettes Q uit: 10/07/2022 Smokeless Tobacco: Never Tobacco Cessation:Counseling Given: Not Answered Alcohol Use Standard Drinks/Week Comments Yes 0 (1 standard drink = 0.6 oz pur e alcohol) occasionally AUDIT-C Answer Date Recorded Q1: How often do you have a drink containing alc ohol? Monthly or less 10/25/2022 Q2: How many drinks containi ng alcohol do you have on a typical day when you are drinking? 1 or 2 10/25/2022 Q3: How often do you have si x or more drinks on one occasion? Never 10/25/2022 PHQ-2 Answer Date Recorded Retired PHQ-9: Brief Depression Severity Measure Score 0 10/25/2022 Abuse Screen Answer Date Recorded Unsafe at Home or Work/School Not on file Feels Threatened by Someone? Not on file Does Anyone Keep You from Co ntacting Others or Doint Things Outside the Home? Not on file 10/26/2023 Physical Sign of Abuse Present Not on file 0 10/26/2023 Housing Stability Answer Date Recorded Current Living Arrangements Not on file 10/08 Potentially Unsafe Housing Conditions Not on shante e 10/26/2023 Family and Community Support Answer Rajan e Recorded Help with Day-to-Day Activities Not on file 07/18/2023 Lonely or Isolated Not on file 07/18/2023 Employment Answer Date Recorded Do you want help finding or keeping work or a candido b? Not on file 07/18/2023 Disabilities Answer Date Recorded Concentrating, Remembering, or Making Decisions Difficulty Not on file 10/26/2023 Doing Errands Independently Difficulty Not on fi le 10/26/2023 Education Answer Date Recorded Help with school or training? Not on file Preferred Language Not on file 07/18/2023 PHQ-2 Answer Date Recorded Retired PHQ-9: Brief Depression Severity Measure Score 0 10/25/2022 Comments No Sex and Gender Information Value Date Recorded Sex Assigned at Female 12/30/2022 7:27 PM EDT Legal Sex Female 10:09 AM EDT Gender Identity Female 12/30/2022 7:27 PM EDT Sexual Orientation Not on file Last Filed Vital Signs Vital Sign Reading Time Taken Comments Blood Pressure 130/62 12/31/2022 11:26 AM EDT Pulse 67 12/31/2022 11:26 AM EDT Temperature 36.2 C (97.2 F) 10/25/2022 8:19 AM EST Respiratory Rate 16 10/25/2022 10:53 AM EST Oxygen Saturation 95% 12/31/2022 11:26 AM EDT Inhaled Oxygen Concentration - - Weight 86.2 kg (190 lb) 12/31/2022 11:26 AM EDT Height 167.6 cm (5' 6 ) 12/31/2022 11:26 AM EDT Body Mass Index 30.67 12/31/2022 11:26 AM EDT Plan of Treatment Health Maintenance Due Date Last Done Comments TDAP/TD VACCINES (1 - Tdap) 1982 COLOGUARD 2008 COLON CANCER SCREENING 5 YEA R SIGMOIDOSCOPY 2008 COLONOSCOPY [address] SCREENING [address] COLONOGRAPHY 2008 FECAL OCCULT BLOOD TEST 2008 FIT Testing (1 year) 2008 Pneumococcal Vaccine 50+ (1 of 1 - PCV) 2013 ZOSTER VACCINE (1 of 2) 2013 ANNUAL PHYSICAL 02/17/2018 HEPATITIS C SCREENING 02/17/2018 MAMMOGRAM 06/17/2021 06/17/2019, 06/07, 06/16/2018, Additional history exists Annual Gynecologic Pelvic an d Breast Exam 06/23/2021 06/22/2020, 05/06/2019 LIPID PANEL 10/25/2023 10/25/2022 COVID-19 Vaccine (3 - 2024-2 6 season) 2025 06/19/2021, 05/29/2021 INFLUENZA VACCINE 07/07/2025 Procedures Procedure Name Priority Date/Time Associated Diagnosis Comments LIPID PANEL STAT 10/25/2022 8:31 AM EST MAMMO SCREENING DIGITAL TOMOSYNTHESIS BILATERAL W CAD Routine 06/17/2019 10:31 AM EDT Visit for screening mammogram SCANNED - PAP SMEAR 05/06/2019 from Last 3 Months or Most Recently Relevant to Health Maintenance Results * (ABNORMAL) Lipid Panel (10/25/2022 8:31 AM EST) Total Cholesterol 160 0 - 200 mg/dL 10/25/2022 9:17 AM EST [facility] Triglycerides 166(H) 0 - 150 mg/dL 10/25/2022 9:17 AM EST [facility] HDL Cholesterol 32(L) 40 - 60 mg/dL 10/25/2022 9:17 AM EST [facility] LDL Cholesterol 99 0 - 100 mg/dL 10/25/2022 9:17 AM EST [facility] VLDL Cholesterol 29 5 - 40 mg/dL 10/25/2022 9:17 AM EST [facility] LDL/HDL Ratio 2.96 10/25/2022 9:17 AM EST [facility] Blood Line / Unknown 10/25/2022 8: 31 AM EST 10/25/2022 8:43 AM EST Narrative [facility] - 10/25/2022 9:17 AM EST Cholesterol Reference Ranges (U.S. Department of Health and Human Services ATP III Classifications) Desirable <200 mg/dL Borderline High 200-239 mg/dL High Risk >240 mg/dL Triglyceride Reference Ranges (U.S. Department of Health and Human Services ATP III Classifications) Normal <150 mg/dL Borderline High 150-199 mg/dL High 200-499 mg/dL Very High >500 mg/dL HDL Reference Ranges (U.S. Department of Health and Human Services ATP III Classifications) Low <40 mg/dl (major risk factor for CHD) High >60 mg/dl ('negative' risk factor for CHD) LDL Reference Ranges (U.S. Department of Health and Human Services ATP III Classifications) Optimal <100 mg/dL Near Optimal 100-129 mg/dL Borderline High 130-159 mg/dL High 160-189 mg/dL Very High >189 mg/dL Myriam Olvera APRN LAB BLOOD ORDERABLES Final Result [facility]
[address] [place] [address], * Mammo Screening Digital Tomosynthesis Bilateral With CAD (06/17/2019 10:31 AM EDT) Anatomical Region Laterality Modality Breast N/A Mammography 06/18/2019 11:0 4 AM EDT Impressions 06/18/2019 11:06 AM EDT No findings suspicious for malignancy. ACR BI-RADS CATEGORY: 1, NEGATIVE RECOMMENDATION: Yearly mammogram, yearly clinical breast exam, and encourage self breast awareness. CAD was used. The standard false negative rate of mammography is between 10% and 25%. Complex patterns or increased breast density will markedly elevate the false negative rate of mammography. A letter, in lay terminology, with the results of this exam will be mailed to the patient. If there is a palpable area of concern, biopsy should be considered regardless of imaging findings. This report was finalized on 06/18/2019 11:06 AM by Roseann Wilder MD. Narrative 06/18/2019 11:06 AM EDT ROUTINE DIGITAL SCREENING MAMMOGRAM WITH TOMOSYNTHESIS HISTORY: Routine screening. IMAGE COMPARISON: Multiple prior comparisons extending to 2010. TECHNIQUE: Low dose full field digital breast tomosynthesis imaging was performed with 2D and 3D acquisitions consisting of bilateral CC and MLO views. FINDINGS: The breasts are predominantly adipose tissue. The fibroglandular pattern appears stable. There is no mass, worrisome microcalcifications, or architectural distortion to suggest development of malignancy. Orlando Beltran MD [facility] MAMMOGRAPHY ORDERABLE S Final Result * SCANNED - PAP SMEAR (05/06/2019) Orlando Beltran MD CHART REVIEW TABS Cindy l Result from Last 3 Months or Most Recently Relevant to Health Maintenance Insurance [employer] Member Subscriber Plan / Payer (Ef fective 2022-Present) Name:Beverley William Relation to Subscriber:Self Name:Beverley William Payer ID:[id number] (NAIC) Type:Not on file Address: [facility] [id number] [id number] Care Teams Cooler Room Worker Relationship Specialty Start Date End Date Cindi Forde PA PCP - General Physician Class A [facility] D[facility] 12/31/22
--- NOTE | 2025-06-14 09:45 | MR_ITS ---
FINAL REPORT TECHNIQUE: Multiplanar multisequence imaging of the abdomen was obtained without contrast. MRCP images were obtained as well. CLINICAL HISTORY: RUQ pain/CBD dilation status post porfirio FINDINGS: There is mild fatty infiltration of the liver. There is a T2 hyperintense lesion in the posterior right lobe of the liver measuring 16 mm on series 8, image 11. There is a second T2 hyperintense lesion in the dome of the liver measuring 10 mm. The spleen is normal in size and signal intensity. The adrenal glands and pancreas are unremarkable. The kidneys are without mass or hydronephrosis. Limited evaluation of the GI tract is within normal limits. There is no ascites or lymphadenopathy. The gallbladder is absent. There is a dilated common duct. Several filling defects are seen in the distal common duct, largest measures 5 mm most consistent with common duct stones. The pancreatic duct appears normal. IMPRESSION: Choledocholithiasis. Fatty liver. Reviewed, Interpreted and Dictated by Mer Erazo MD Transcribed by Joselien Mart Authenticated and [facility]
== END 2025-06-14 23:59 | disposition home or self-care (01) ==
LOC: RAD 09:17
PROVIDERS: PCP Physician Assistant; Visit Provider Nurse Practitioner Family
DX: K80.50 Calculus of bile duct without cholangitis or cholecystitis without obstruction (principal); K76.0 Fatty (change of) liver, not elsewhere classified; K83.8 Other specified diseases of biliary tract; Z90.49 Acquired absence of other specified parts of digestive tract
CPT/HCPCS: 74181

== ENCOUNTER 2025-07-05 12:52 | Day surgery (SDC) | payer BC, SELFPAY ==
--- NOTE | 2025-07-02 08:35 | P.HP_ITS ---
History of Present Illness *Admission Date: 07/05/25 *History of present illness: Mrs. William is a 60-year-old female who is here for diagnostic ERCP. The patient has struggled with right upper quadrant abdominal pain which is intermittent. She did have a CAT scan that showed a dilated common bile duct to 12 mm. She is status post cholecystectomy. Her liver chemistries, alkaline phosphatase and bilirubin have been normal. The examination is deemed medically necessary for ERCP. The patient has been seen, interviewed and examined prior to the procedure by both myself and the anesthesia provider. [facility] Disclaimer: The information contained in this section may have been updated after the patient was seen, as this information can be updated by other users. Medical History Nicotine dependence COPD (chronic obstructive pulmonary disease) Beverley is taking the tiotropium inhaler with albuterol inhaler as needed. She states that this is helped her shortness of breath and helped improve her lung function. We will just follow this for now. We do need to review Beverley's vaccine history and we will do this when she returns to the clinic. TIA (transient ischemic attack) Surgical History S/P partial hysterectomy History of cholecystectomy H/O right heart catheterization Family History (Updated 07/05/25 @ 13:55 by Mayte Mohamud RN) Other No significant family history Social History (Updated 07/05/25 @ 13:56 by Mayte Mohamud RN) Smoking Status: Current every day smoker how long ago did patient quit smokin months ago alcohol intake: current substance use type: denies use current occupational status: employed Travel in the last 8 weeks?: None caffeine: Yes Have you lived/traveled outside US in past 30 days?: No Contact w/someone who lives/traveled outside US past 30 days?: No Exposure to someone with infectious disease in past 14 days?: No Do you have a fever (greater than 100.4 F or 38 C)?: No Have you tested positive for COVID-19?: No Exposed to someone with COVID-19 in past 14 days?: No Do you have a sore throat?: No Do you have a cough?: No Do you have any weakness?: No Are you experiencing any nausea/vomitting?: No Do you have any diarrhea?: No Are you experiencing any unusual bleeding?: No Do you have any muscle aches/pain?: No Do you have any abdominal pain?: No Are you experiencing loss of taste or smell?: No Other Medical History Have you received the Flu Vaccine for this season: No Have you received the Pneumonia Vaccine: No Review of Systems Review of Systems Review of systems (narrative): Negative *Cardiovascular Comments: Negative *Gastrointestinal Comments: Negative *Genitourinary Comments: Negative *Musculoskeletal Comments: Negative *Neurologic Comments: Negative Meds Home Medications and Allergies Home Medications ?Medication ?Instructions ?Recorded ?Confirmed ?Type albuterol sulfate 1.25 mg/3 mL 1.25 mg (3 mL) inhalati on QID PRN 07/18/23 07/05/25 Rx solution for nebulization shortness of breath or wheez ing #90 mL fluticasone fur. 200 mcg-umeclid 1 inh inhalation SVEN Y #30 ea 04/20/24 07/05/25 Rx 62.5 mcg-vilant 25 mcg inhalat.powder (Trelegy Ellipta) evolocumab 140 mg/mL subcutaneous 140 mg SQ Q2W #3 mL 05/26/24 07/05/25 Rx syringe (Repatha Syringe) albuterol sulfate 90 mcg/actuation 2 puff inhalation A S NEEDED PRN 12/07/24 07/05/25 History aerosol inhaler COPD cholecalciferol (vitamin D3) 1,250 1,250 mcg PO WEEKLY 12/07/24 07/05/25 History mcg (50,000 unit) capsule fluticasone furoate 200 1 inh inhalation DAILY 12/0707/05/25 History mcg-vilanterol 25 mcg/dose inhalation powder losartan 50 mg tablet 50 mg PO DAILY 12/07/2406/08 History sertraline 100 mg tablet 100 mg PO ONCE 12/07/2406/08 History alendronate 70 mg/75 mL oral 70 mg PO WEEKLY 05/24/25 07/05/25 History solution calcium 500 mg (as 1 tab PO DAILY 05/24/2506/08 History carbonate)-vitamin D3 10 mcg (400 unit) tablet (Calcium 500 With D) cariprazine 1.5 mg capsule 1.5 mg PO Q OTHER DAY 05/2407/05/25 History (Vraylar) methocarbamol 750 mg tablet 1,500 mg PO ONCE 05/24/25 07/05/25 History tizanidine 2 mg tablet 2 mg PO Q8H PRN . 05/24/25 0 07/05/25 History New Prescriptions to Start Prescriptions: Allergies Allergy/AdvReac Type Severity Reaction Status Date / Time cefadroxil Allergy Severe Vomiting Verified 07/05/25 13:48 codeine Allergy Anaphylaxis Verified 07/05/25 13:48 Exam *Routine HEENT Exam Head: Present normocephalic Eye: Present EOMI and PERRL ENT: Present mucous membranes moist *Routine Neck Exam Neck: Present supple *Routine Respiratory Exam Respiratory: Present CTA bilaterally *Routine Cardiovascular Exam Cardiovascular: Present RRR *Routine Abdominal Exam Abdominal: Present soft and normoactive bowel sounds; Absent tenderness *Routine Rectal Exam Rectal:: deferred *Routine Genitalia Exam Genitalia:: deferred *Routine Extremities Exam Extremities: Absent cyanosis, clubbing or edema *Routine Skin Exam Skin: Present warm; Absent rash *Routine Neurological Exam Neurological: Present alert and oriented X3 Assessment and Plan *Assessment and plan (1) Common bile duct dilatation: Status: Acute Category: Medical Code(s): K83.8 - Other specified diseases of biliary tract (2) Right upper quadrant abdominal pain: Status: Acute Category: Medical Code(s): R10.11 - Right upper quadrant pain Plan A/P: 1. Right upper quadrant abdominal pain with common bile duct dilation is the preprocedural diagnosis. The patient will be anesthetized/sedated using MAC sedation. The patient has been seen and examined. Cardiac and lung assessment prior to the examination is stable. Proceed with planned diagnostic ERCP.
[2025-07-05] VITALS (10 sets, daily range): BP systolic 113–173; BP diastolic 62–92; PULSE 59–74; RESP 16–20; TEMP 36.3–36.6; O2SAT 92–994; BMI 30.7
--- NOTE | 2025-07-05 07:10 | HMH.PROCNOTE ---
[facility] Procedure Note Date: 07/05/25 Time: 15:50 Procedure Note:: ERCP procedure Report: Endoscopic retrograde cholangiopancreatography with biliary sphincterotomy, stone extraction and stent placement Endoscopist: Lino Pritchard II, MD Referring Physician: Cindi Forde PA-C Date of Procedure: July 05, 2025 Equipment: Olympus 180 side viewing endoscope duodenoscope Sedation: MAC sedation Indication: Mrs. William is a 60-year-old female who is here for diagnostic ERCP. The patient has struggled with right upper quadrant abdominal pain which is intermittent. She did have a CAT scan that showed a dilated common bile duct to 12 mm. She is status post cholecystectomy. Her liver chemistries, alkaline phosphatase and bilirubin have been normal. The examination is deemed medically necessary for ERCP. Procedure: Prior to the procedure, a history and physical exam was performed, and patient's medications and allergies were reviewed. The risks (including pancreatitis), benefits and alternatives of the sedation and procedure were discussed with the patient. All questions were answered and informed consent was obtained. The patient was brought to the fluoroscopic radiology room. Patient identification and proposed procedure were verified by the physician and the nurse. The patient was placed in a swimmer's position between left lateral decubitus and prone position and the scope was passed under direct vision. Throughout the procedure, the patient's blood pressure, pulse, and oxygen saturations were monitored continuously. The ERCP was accomplished without difficulty. The patient tolerated the procedure well. Findings: The duodenoscope was passed directly into the upper esophagus and advanced to the second portion of the duodenum. The fluoroscopic C arm was then placed into position prior to cannulation with the duodenoscope was centered in a L-shaped position fluoroscopically in the second portion of duodenum. The entire endoscopic exam was done in conjunction with fluoroscopy. The cannula was then inserted through the duodenoscope channel and preloaded with low osmolar contrast. The esophagus, stomach and duodenum were grossly normal. The ampulla was normal in appearance. The common bile duct was selectively cannulated with a guidewire. The cholangiogram was performed and there was a 12 to 13 mm common bile duct with normal filling of the intrahepatic biliary tree. There were 2 filling defects that were 8 mm in the mid common bile duct. The cystic duct stump was normal. Next, a generous biliary sphincterotomy was performed. After sphincterotomy, the sweeping pneumatic balloon was placed in the proximal biliary tree and insufflated with air and swept to the the biliary system. With this, the stones impacted at the ampulla and could not readily pass. Rather than do sphincteroplasty, I elected to place a 10 [place]/7 cm straight Lula stent which I deployed into the biliary system. The pancreatic duct was not cannulated intentionally. Impression: 1. Choledocholithiasis (two 8 mm CBD stones) status post biliary sphincterotomy and biliary stent placement Plan: I elected to do stent placement which will have some lithotripsy affect before doing sphincteroplasty after large biliary sphincterotomy. I will have the patient return in 3 months with removal of the stent, biliary sphincteroplasty and balloon or basket extraction of any remaining biliary stones. I will discuss the findings with the patient and family and administer Indocin suppositories postprocedure.
[2025-07-05] MEDS: LACTATED RINGERS 1000ML 1,000 ML 50 ML IV (14:05)
--- NOTE | 2025-07-05 14:33 | EXP.ANES.CKL ---
[facility] Disclaimer: The information contained in this section may have been updated after the patient was seen, as this information can be updated by other users. Medical History Nicotine dependence COPD (chronic obstructive pulmonary disease) Beverley is taking the tiotropium inhaler with albuterol inhaler as needed. She states that this is helped her shortness of breath and helped improve her lung function. We will just follow this for now. We do need to review Beverley's vaccine history and we will do this when she returns to the clinic. TIA (transient ischemic attack) Surgical History S/P partial hysterectomy History of cholecystectomy H/O right heart catheterization Family History (Updated 07/05/25 @ 13:55 by Mayte Mohamud RN) Other No significant family history Social History (Updated 07/05/25 @ 13:56 by Mayte Mohamud RN) Smoking Status: Current every day smoker how long ago did patient quit smokin months ago alcohol intake: current substance use type: denies use current occupational status: employed Travel in the last 8 weeks?: None caffeine: Yes Have you lived/traveled outside [place] in past 30 days?: No Contact w/someone who lives/traveled outside US past 30 days?: No Exposure to someone with infectious disease in past 14 days?: No Do you have a fever (greater than 100.4 F or 38 C)?: No Have you tested positive for COVID-19?: No Exposed to someone with COVID-19 in past 14 days?: No Do you have a sore throat?: No Do you have a cough?: No Do you have any weakness?: No Are you experiencing any nausea/vomitting?: No Do you have any diarrhea?: No Are you experiencing any unusual bleeding?: No Do you have any muscle aches/pain?: No Do you have any abdominal pain?: No Are you experiencing loss of taste or smell?: No [facility] Anesthesia Checklist Patient Identification Patient Identification: Arm Band Structural Data Admitted From: Home Planned Operative Procedure/s: ERCP Consent for Planned Operative Procedure(s) Verified: Yes Verified Documents: Surgical Consent and History and Physical NPO Status Verified Time NPO: 00:00 Additional verifications Anesthesia Reactions: No Airway Assessment Mallampati Score:: Class II C-Spine Mobility Assessed: Yes TMJ Mobility Assessed: Yes Dentition: Good Dentition Neurological Assessment Level of Consciousness: Awake, Alert and Appropriate Anesthesia Plan Anesthesia Risk discussed: Yes Anesthesia Plan: Verified ASA Class: II Anesthesia Type: General
[2025-07-05] MEDS: INDOMETHACIN 50MG SUPPOSITORY 100 MG RC (15:40)
--- NOTE | 2025-07-05 16:03 | P.PNANES_ITS ---
[facility] Anesthesia Record Part I Anesthesia Record I Intake, IV Amount: 400 Hydration: Adequate Estimated blood loss (mL): 0 Urine output (mL): 0 Blood Products used (#): none Blood Pressure: 154/92 SaO2: 96 Pulse Rate: 67 Airway Patency: Patent Respiratory Rate: 16 Temperature: 98 F Patient is:: Drowsy and Stable Stable to PACU at:: 16:00
[2025-07-05] MEDS: IOPAMIDOL-370 (76%);100ML BOTTLE IV (16:04)
[2025-07-05] MEDS: ONDANSETRON 4MG/2ML VIAL 4 MG IV (16:44)
--- NOTE | 2025-07-06 04:51 | EXP.ANES.II ---
[facility] Anesthesia Record Part II Anesthesia Record Part II Discharge Time: 16:30 Destination: Surgical Day Care (OP Surgery) PACU nurse assessment reviewed?: Yes Patient Condition:: Good Anesthesia Complications:: None Swallowing reflex intact?: Yes Airway Patency: Patent Cyanosis?: No Blood Pressure: 150/82 SaO2: 95 Respiratory Rate: 20 Pulse Rate: 63 Temperature: 97.4 F Mental Status: Alert & Oriented Pain level:: 0 Nausea and/or vomitting:: None Intake, IV Amount: 0 Hydration: Adequate
[2025-07-06 04:52] VITALS: BP 150/82; PULSE 63; RESP 20; TEMP 36.3; O2SAT 95
== END 2025-07-05 17:10 | disposition home or self-care (01) ==
PROVIDERS: PCP Physician Assistant; Visit Provider Internal Medicine Gastroenterology
PROC: (CPT 43260; principal; 2025-07-05 14:30)
DX: K83.8 Other specified diseases of biliary tract (principal); K80.50 Calculus of bile duct without cholangitis or cholecystitis without obstruction; Z90.49 Acquired absence of other specified parts of digestive tract; J44.9 Chronic obstructive pulmonary disease, unspecified; Z86.73 Personal history of transient ischemic attack (TIA), and cerebral infarction without residual deficits; F17.210 Nicotine dependence, cigarettes, uncomplicated; Z79.51 Long term (current) use of inhaled steroids; Z79.899 Other long term (current) drug therapy; Z88.1 Allergy status to other antibiotic agents; Z88.5 Allergy status to narcotic agent
CPT/HCPCS: 43264; 43274; 74018; 76000; C1726; C1769; C2617; J1100; J2003; J2250; J2405; J2704; J3010; J7120; Q9967

== ENCOUNTER 2025-07-08 10:01 | Observation (INO) | payer BC, SELFPAY ==
[2025-07-08] VITALS (13 sets, daily range): BP systolic 90–107; BP diastolic 51–74; PULSE 64–119; RESP 16–18; TEMP 36.7–37; O2SAT 90–97; BMI 32.4; BMI 29.9
--- OUTSIDE RECORDS SUMMARY | 2025-07-08 10:08 | XMS_ITS | Clinical Summary ---
Author Organization [facility] Address [address] [place] [address] Care Team Providers Care Classroom Technology Technician Name Role Phone Cindi Forde Primary Care Provider [phone] Allergies Active Allergy Reactions Criticality Noted Date Comments Codeine Itching 02/17/2018 Medications atorvastatin (LIPITOR) 10 MG tablet Take 1 tablet by mouth Daily. Active sertraline (ZOLOFT) 50 MG tablet Take 2 tablets by mouth Daily. Active Cholecalciferol (Vitamin D3) 1.25 MG (40194 UT) capsule 12/14/2022 Active losartan (Cozaar) 50 MG tablet Take 1 tablet by mouth Daily. 30 tablet 11 12/31/2022 Active Active Problems Problem Noted Date Diagnosed Date Abnormal stress test 10/17/2022 Overview (10/17/2022): Added automatically from request for surgery [id number] Menopause 02/17/2018 Fibrocystic breast changes, bilateral 02/17/2018 [...] 06/23/2021 06/22/2020, 05/06/2019 LIPID PANEL 10/25/2023 10/25/2022 INFLUENZA VACCINE 05/07/2025 Procedures Procedure Name Priority Date/Time Associated Diagnosis [...] - 200 mg/dL 10/25/2022 9:17 AM EST [facility] Triglycerides 166(H) 0 - 150 mg/dL 10/25/2022 9:17 AM EST [facility] HDL Cholesterol 32(L) 40 - 60 mg/dL 10/25/2022 9:17 AM EST [facility] LDL Cholesterol 99 0 - 100 mg/dL 10/25/2022 9:17 AM EST [facility] VLDL Cholesterol 29 5 - 40 mg/dL 10/25/2022 9:17 AM EST [facility] LDL/HDL Ratio 2.96 10/25/2022 9:17 AM EST [facility] Blood Line / Unknown 10/25/2022 8: 31 AM EST 10/25/2022 8:43 AM EST Narrative [facility] - 10/25/2022 9:17 AM [...] Olvera APRN LAB BLOOD ORDERABLES Final Result [facility]
[address] [place] [address], * Mammo Screening Digital Tomosynthesis Bilateral With [...] suggest development of malignancy. Orlando Beltran MD IMG MAMMOGRAPHY ORDERABLE S Final Result * SCANNED - PAP SMEAR (05/06/2019) Orlando Beltran MD CHART REVIEW TABS Cindy l Result from Last 3 Months or Most Recently Relevant to Health Maintenance Insurance [employer] Member Subscriber Plan / Payer (Ef fective 2022-Present) Name:Beverley William Relation to Subscriber:Self Name:Beverley William Payer ID:[id number] (NAIC) Type:Not on file Address: [facility] [id number] [id number] Care Teams Classroom Technology Technician Relationship Specialty Start Date End Date Cindi Forde PA PCP - General Physician [employer] 12/31/22
--- NOTE | 2025-07-08 10:20 | HMH.EDGENADL ---
Discharge Plan Disposition Patient Disposition: Admitted Condition: Good Clinical Impressions Clinical Impression: Abdominal pain, Leukocytosis Discharge ED Provider: Rojas Benito Adult HPI General Chief complaint: Abdominal Pain Stated complaint: hurting in abdomnen, dr pritchard told her to come Time Seen by Provider: 07/08/25 10:11 History of Present Illness HPI narrative: This is a 60-year-old female patient, with past medical history of tobacco abuse, COPD, hypertension, obesity, and prior cholecystectomy, who is presenting to the emergency department today for evaluation of abdominal pain. The patient was recently evaluated by Dr. Pritchard with gastroenterology. She had been having intermittent right upper quadrant abdominal pain despite being status post cholecystectomy. She underwent a CT scan that showed a dilated common bile duct to 12 mm. LFTs and bilirubin were normal. On 07/05/2025 she underwent a diagnostic ERCP with Dr. Pritchard. During this procedure he found that she had choledocholithiasis with two 8 mm common bile duct stones and performed a biliary sphincterotomy and biliary stent placement. Plan with Dr. Pritchard will be to return in 3 months for removal of the stents, biliary sphincteroplasty, and extraction of any remaining biliary stents. She tells me that she has had significant abdominal pain over the last 24 hours that is concentrated in the epigastrium and right upper quadrant. She has had associated nausea and vomiting. She feels that she is unable to eat as this makes the pain in her right upper quadrant significantly worse. She also reports melena. Related Data Home Medications ?Medication ?Instructions ?Recorded ?Confirmed albuterol sulfate 90 mcg/actuation 2 puff inhalation NEEDED PRN 12/07/24 07/08/25 aerosol inhaler COPD cholecalciferol (vitamin D3) 1,250 1,250 mcg PO WEEKLY 12/07/24 07/08/25 mcg (50,000 unit) capsule fluticasone furoate 200 1 inh inhalation DAILY 12/07/24 07/08/25 mcg-vilanterol 25 mcg/dose inhalation powder losartan 50 mg tablet 50 mg PO DAILY 12/07/24 07/08/25 sertraline 100 mg tablet 100 mg PO ONCE 12/07/24 07/08/25 calcium 500 mg (as 1 tab PO DAILY 05/24/25 07/08/25 carbonate)-vitamin D3 10 mcg (400 unit) tablet (Calcium 500 With D) cariprazine 1.5 mg capsule 1.5 mg PO Q OTHER DAY 05/24/25 07/08/25 (Vraylar) tizanidine 2 mg tablet 2 mg PO Q8H PRN MUSCLE RELAXER 05/24/25 07/08/25 Previous Rx's ?Medication ?Instructions ?Recorded albuterol sulfate 1.25 mg/3 mL 1.25 mg (3 mL) inhalation QID PRN 07/18/23 solution for nebulization shortness of breath or wheezing #90 mL fluticasone fur. 200 mcg-umeclid 1 inh inhalation DAILY #30 ea 04/20/24 62.5 mcg-vilant 25 mcg inhalat.powder (Trelegy Ellipta) evolocumab 140 mg/mL subcutaneous 140 mg SQ Q2W #3 mL 05/26/24 syringe (Repatha Syringe) Allergies Allergy/AdvReac Type Severity Reaction Status Date / Time cefadroxil Allergy Severe Vomiting Verified 07/05/25 13:48 codeine Allergy Anaphylaxis Verified 07/05/25 13:48 PFSH [facility] Disclaimer: The information contained in this section may have been updated after the patient was seen, as this information can be updated by other users. Medical History Nicotine dependence COPD (chronic obstructive pulmonary disease) Beverley is taking the tiotropium inhaler with albuterol inhaler as needed. She states that this is helped her shortness of breath and helped improve her lung function. We will just follow this for now. We do need to review Beverley's vaccine history and we will do this when she returns to the clinic. TIA (transient ischemic attack) Surgical History S/P partial hysterectomy History of cholecystectomy H/O right heart catheterization Family History Other No significant family history Social History Smoking Status: Current every day smoker how long ago did patient quit smokin months ago alcohol intake: current substance use type: denies use current occupational status: employed Travel in the last 8 weeks?: None caffeine: Yes Have you lived/traveled outside [place] in past 30 days?: No Contact w/someone who lives/traveled outside US past 30 days?: No Exposure to someone with infectious disease in past 14 days?: No Do you have a fever (greater than 100.4 F or 38 C)?: No Have you tested positive for COVID-19?: No Exposed to someone with COVID-19 in past 14 days?: No Do you have a sore throat?: No Do you have a cough?: No Do you have any weakness?: No Do you have any diarrhea?: No Are you experiencing any unusual bleeding?: No Do you have any muscle aches/pain?: No Do you have any abdominal pain?: No Are you experiencing loss of taste or smell?: No Other Medical History Have you received the Flu Vaccine for this season: No Have you received the Pneumonia Vaccine: No ROS Obtained: Yes Systems reviewed as appropriate & no additional complaints except as documented Physical Exam General General appearance: other (See MDM) Respiratory Respiratory exam: Present other (See MDM) Cardiovascular Cardiovascular exam: Present other (See MDM) Neurological Exam Neurological exam: Present other (See MDM) Medical Decision Making Medical Records Medical records reviewed: Yes I reviewed the patient's medical records. Screening: Per USPSTF and CDC recommendations, given the prevalence of disease in our region, it is our hospital?s policy to screen for HIV and viral Hepatitis for all patients aged 18 and over and those with ongoing risk factors. Jc Inquiry Pt receiving controlled substance: No Jc was queried for this patient: No Vital Signs: 07/08/25 10:07 07/08/25 10:07 07/08/25 10:12 Temperature 98.4 F 98.4 F Temperature Source Oral Oral Pulse Rate 119 H 111 H Pulse Rate [Right] 119 H Respiratory Rate 18 18 Blood Pressure 100/74 L 100/74 L Blood Pressure [Right Arm] 100/74 L Blood Pressure Mean Blood Pressure Mean [Right Arm] 82 Blood Pressure Source Automatic Cuff Blood Pressure Source [Right Arm] Automatic Cuff Blood Pressure Position Supine Blood Pressure Position [Right Arm] Supine 02 Sat by Pulse Oximetry 96 96 97 Oxygen Delivery Method Room Air Room Air 07/08/25 10:30 07/08/25 11:04 07/08/25 11:23 Temperature Temperature Source Pulse Rate 103 H 89 85 Pulse Rate [Right] Respiratory Rate Blood Pressure 97/62 L 90/56 L 104/51 L Blood Pressure [Right Arm] Blood Pressure Mean Blood Pressure Mean [Right Arm] Blood Pressure Source Blood Pressure Source [Right Arm] Blood Pressure Position Blood Pressure Position [Right Arm] 02 Sat by Pulse Oximetry 96 96 92 L Oxygen Delivery Method 07/08/25 11:30 07/08/25 12:00 07/08/25 12:30 Temperature Temperature Source Pulse Rate 88 82 79 Pulse Rate [Right] Respiratory Rate Blood Pressure 107/68 L 92/58 L 105/56 L Blood Pressure [Right Arm] Blood Pressure Mean Blood Pressure Mean [Right Arm] Blood Pressure Source Blood Pressure Source [Right Arm] Blood Pressure Position Blood Pressure Position [Right Arm] 02 Sat by Pulse Oximetry 92 L 90 L 91 L Oxygen Delivery Method 07/08/25 13:00 07/08/25 13:15 07/08/25 14:45 Temperature 98.6 F Temperature Source Oral Pulse Rate 67 64 68 Pulse Rate [Right] Respiratory Rate 18 Blood Pressure 93/57 L 105/56 L 93/57 L Blood Pressure [Right Arm] Blood Pressure Mean 63 Blood Pressure Mean [Right Arm] Blood Pressure Source Automatic Cuff Blood Pressure Source [Right Arm] Blood Pressure Position Supine Blood Pressure Position [Right Arm] 02 Sat by Pulse Oximetry 93 L 95 Oxygen Delivery Method Room Air Lab Data Lab Results 07/08/25 10:15: WBC 19.7 H, RBC 4.94, Hgb 15.1, Hct 45.8, MCV 92.7, MCH 30.6, MCHC 33.0, RDW 12.2, Plt Count 421, MPV 10.5 H, Neut % (Auto) 65.5, Lymph % (Auto) 23.6, [place] % (Auto) 8.3, Eos % (Auto) 1.1, Baso % (Auto) 1.0, Neut # (Auto) 12.9 H, Lymph # (Auto) 4.7 H, [place] # (Auto) 1.6 H, Eos # (Auto) 0.2, Baso # (Auto) 0.2, Total Counted 100, Neutrophils % (Manual) 70, Lymphocytes % (Manual) 30, Platelet Estimate Normal, RBC Morphology Normal, Sodium 138, Potassium 3.6, Chloride 96 L, Carbon Dioxide 31 H, Anion Gap 14.6, BUN 20 H, Creatinine 0.90, Estimated Creat Clear 81, Estimated GFR 63, Est GFR ( Amer) 77, Glucose 124 H, Calcium 9.0, Total Bilirubin 0.9, AST 30, ALT 29, Alkaline Phosphatase 54, Troponin I 0.01, Total Protein 7.2, Albumin 4.6, Globulin 2.6, Albumin/Globulin Ratio 1.8, Lipase 39 07/08/25 10:37: Blood Type A Positive, Antibody Screen Negative 07/08/25 13:31: Urine Color Yellow, Urine Appearance Clear, Urine pH 8.0, Ur Specific [place] <= 1.005, Urine Protein Negative, Urine Glucose (UA) Negative, Urine Ketones Negative, Urine Blood Negative, Urine Nitrate Negative, Urine Bilirubin Negative, Urine Urobilinogen 2.0, Ur Leukocyte Esterase Trace, Urine RBC None, Urine WBC Occasional, Ur Squamous Epith Cells Occasional, Urine Bacteria Trace 07/08/25 13:55: Troponin I 0.01 07/08/25 10:15 07/08/25 10:15 Orders (Tests/Meds): ED MEDICATIONS Generic Name Dose Route Start Last Admin Trade Name Freq PRN Reason Stop Dose Admin Acetaminophen 650 mg 07/08/25 13:52 Acetaminophen 325mg Tab PO 08/07/25 13:51 Q4HP PRN Fever or Mild Pain (1-3) Albuterol/Ipratropium 3 ml 07/08/25 15:25 Ipratropium/Albuterol 3 Ml Neb IH 08/07/25 15:24 Q6HP PRN Shortness Of Breath Diazepam 5 mg 07/08/25 16:00 Diazepam 10mg/2ml Syringe IV 08/07/25 15:59 Q6HP PRN Moderate to Severe Pain (4-10) Enoxaparin Sodium 40 mg 07/09/25 09:00 Enoxaparin 40mg/0.4ml Syringe SUBCUT 08/08/25 08:59 DAILY NINFA Fluticasone/Umeclidinium/Vilanterol 1 puff 07/09/25 09:00 Fluticasone/Umeclidin/Vilanter 200/62.5/25mcg Inhaler IH 08/08/25 08:59 DAILY NINFA Piperacillin Sod/Tazobactam 50 mls @ 100 mls/hr 07/08/25 15:00 07/08/25 16:31 Sod 3.375 gm/ Sodium Chloride IV 07/18/25 14:59 100 mls/hr Q6H NINFA Administration Irbesartan 75 mg 07/09/25 09:00 Irbesartan 75mg Tablet PO 08/08/25 08:59 DAILY NINFA Ketorolac Tromethamine 15 mg 07/08/25 15:23 07/08/25 15:48 Ketorolac 15mg/Ml Vial IV 07/13/25 15:22 15 mg Q6HP PRN Administration Moderate Pain (4-6) Ondansetron HCl 4 mg 07/08/25 13:52 Ondansetron 4mg/2ml Vial IV 08/07/25 13:51 Q8HP PRN Nausea Sertraline HCl 100 mg 07/08/25 15:30 07/08/25 16:31 Sertraline 100mg Tablet PO 08/07/25 15:29 100 mg DAILY NINFA Administration Sodium Chloride 10 ml 07/08/25 11:18 07/08/25 11:18 Sodium Chloride 0.9% 10ml Syr (Rad Only) IV 08/07/25 11:17 10 ml NEEDED PRN Administration Maintain IV Site Discontinued Medications Generic Name Dose Route Start Last Admin Trade Name Freq PRN Reason Stop Dose Admin Belladonna Alkaloids 60 ml 07/08/25 13:48 07/08/25 14:16 Belladonna Alkaloids 60 Ml Ml PO 07/08/25 13:49 60 ml ONCE ONE Administration Diazepam 2.5 mg 07/08/25 13:48 07/08/25 14:16 Diazepam 10mg/2ml Syringe IV 07/08/25 13:49 2.5 mg ONCE ONE Administration Fentanyl Citrate 50 mcg 07/08/25 10:53 07/08/25 11:03 Fentanyl 100mcg/2ml Vial IV 07/08/25 10:54 50 mcg ONCE ONE Administration Lactated Ringer's 1,000 mls @ 999 mls/hr 07/08/25 11:05 07/08/25 12:38 Lactated Ringer's 1000 Ml Bag IV 07/08/25 12:05 Infused .Q1H1M ONE Infusion Iopamidol 75 ml 07/08/25 11:18 07/08/25 11:18 Iopamidol-370 (76%);100ml Bottle IV 07/08/25 11:19 75 ml ONCE ONE Administration Ondansetron HCl 4 mg 07/08/25 10:53 07/08/25 11:02 Ondansetron 4mg/2ml Vial IV 07/08/25 10:54 4 mg ONCE ONE Administration ORDERS Category Date Time Status Type and Screen Stat BBK 07/08/25 10:[address] abdomen pelvis w con Stat Cat Scan 07/08/25 10:22 Completed CXR --portable [XR chest portable] Stat Exams 07/08/25 10:27 Completed POCUS Point of Care (ER Only) Stat Exams 07/08/25 10:50 Completed CBC w/Auto Diff [Complete Blood Count Auto Diff] Stat Lab 07/08/25 10:15 Completed CMP [Comprehensive Metabolic Panel] Stat Lab 07/08/25 10:15 Completed Complete Blood Count Auto Diff AMLAB Lab 07/09/25 06:00 Ordered Complete Blood Count Auto Diff AMLAB Lab 07/10/25 06:00 Ordered Comprehensive Metabolic Panel AMLAB Lab 07/09/25 06:00 Ordered Comprehensive Metabolic Panel AMLAB Lab 07/10/25 06:00 Ordered HIV Combo Stat Lab 07/08/25 10:15 Received Hepatitis C Ab Qual. W/ RFX Stat Lab 07/08/25 10:15 Received Lipase Stat Lab 07/08/25 10:15 Completed Magnesium AMLAB Lab 07/09/25 06:00 Ordered Troponin I Q3H Lab 07/08/25 13:55 Completed Troponin I Q3H Lab 07/08/25 16:30 Ordered Troponin I Stat Lab 07/08/25 10:15 Completed UA [Urinalysis and Microscopic] Stat Lab 07/08/25 13:31 Completed Blood Culture Routine Micro 07/08/25 15:20 Received Medical Decision Narrative: In summary, this is a 60-year-old female patient who is presenting to the emergency department today for evaluation of abdominal pain. On the , 3 days ago, the patient underwent an ERCP with sphincterotomy and biliary stent deployment for choledocholithiasis that was found in the setting of chronic abdominal pain that was intermittently occurring in the right upper quadrant. Her comorbidities include hypertension, COPD, tobacco abuse, and prior cholecystectomy. On initial evaluation of the patient they were resting comfortably in no acute distress and nontoxic in appearance. They are hemodynamically stable, saturating well room air, and are neurologically intact. On physical examination she has marked right upper quadrant and epigastric abdominal tenderness palpation. She is not peritonitic. She has no lower extremity erythema or edema. Heart and lungs are clear to auscultation bilaterally. Differential diagnosis includes biliary stent obstruction, biliary stent migration, pancreatitis, acute liver injury, obstructive jaundice, pneumoperitoneum, pneumomediastinum, among others. Workup was initiated with hematologic labs as well as a chest x-ray and a CT scan of the abdomen and pelvis. Labs personally interpreted by me demonstrate a leukocytosis of 19.7 with a neutrophilic shift. No significant electrolyte derangements or evidence of acute kidney injury. Troponin and delta troponin are flat at 0.01 no evidence of urinary tract infection. Specifically in regards to her recent procedure, she has no transaminitis, no elevation of alkaline phosphatase, and no elevation of lipase CT scan of the abdomen and pelvis shows no acute findings as interpreted by radiology. They stated the stent appears in the appropriate position. I had an interactive discussion with Dr. Pritchard of the gastroenterology service. He states that in the setting of her intractable pain and leukocytosis he would like for her to be admitted for 24-hour observation to ensure that she is clinically improving instead of clinically declining. He also states that she is likely having spasmodic pain from the recent stent placement. He would like for us to trial the patient on benzodiazepines and a GI cocktail to see if this improves her pain. I have administered 2.5 mg of Valium and a GI cocktail to the patient. Based on his recommendations, I have had an interactive discussion with the internal medicine service who has agreed to evaluate the patient the emergency department. After our discussion of their evaluation have agreed to admit the patient to their service and accept primary responsibility the patient move forward Critical Care Critical Care Time Critical Care Time: No
--- NOTE | 2025-07-08 10:22 | CT_ITS ---
FINAL REPORT TECHNIQUE: After the administration of intravenous contrast, axial images were obtained through the abdomen and pelvis by computed tomography. The study was performed with techniques to keep radiation dose as low as reasonably achievable, (ALARA). Individual dose reduction techniques using automated exposure control or adjustment of mA and/or kV according to the patient's size were employed. CLINICAL HISTORY: Abdominal pain COMPARISON: 04/27/2025 FINDINGS: Abdomen: The lung bases are clear. The liver parenchyma is homogeneous. The gallbladder is absent. Endoscopic biliary stent is present. There is moderate pneumobilia. The spleen, pancreas, adrenals and kidneys appear unremarkable. The aorta is normal in caliber. There is no free fluid or adenopathy. Pelvis: The appendix is unremarkable. The urinary bladder is unremarkable. Bilateral tubal ligation clips are present. No localized inflammatory reaction seen. IMPRESSION: No acute intra-abdominal process. Endoscopic biliary stent. Reviewed, Interpreted and Dictated by Lazarus Fallon MD Transcribed by Brandi Goetz Authenticated and . [facility]
--- NOTE | 2025-07-08 10:27 | XR_ITS ---
FINAL REPORT CLINICAL HISTORY: Abdominal pain s/p endoscopy COMPARISON: None FINDINGS: The heart size is normal. The mediastinum is normal. There is no focal infiltrate or edema. There are no pleural effusions. There is no pneumothorax. There is no osseous abnormality. IMPRESSION: No acute cardiopulmonary process Reviewed, Interpreted and Dictated by Lazarus Fallon MD Transcribed by Brandi Goetz Authenticated and [facility]
[2025-07-08 10:35] LABS: Hematocrit 45.8 % (37.0-47.0); Hemoglobin 15.1 g/dL (12.2-16.2); Immature Granulocytes % 0.5 %; Mean Corpuscular HGB Conc 33.0 g/dL (31.8-35.4); Mean Corpuscular Hemoglobin 30.6 pg (27.0-31.2); Mean Corpuscular Volume 92.7 fl (81-99); Nucleated Red Blood Cells % 0 %; Platelet Count 421 K/mm3 (142-424); Red Blood Count 4.94 M/mm3 (4.20-5.40); Red Cell Distribution Width-SD 41.6 fL; White Blood Count 19.7 K/mm3 (4.8-10.8)
[2025-07-08 10:50] LABS: Alanine Aminotransferase 29 U/L (12-78); Albumin Level 4.6 g/dl (3.5-5.0); Albumin/Globulin Ratio 1.8 (1.1-1.8); Alkaline Phosphatase 54 U/L (38-126); Anion Gap 14.6 mEq/L (5-15); Aspartate Amino Transferase 30 U/L (14-36); Bilirubin,Total 0.9 mg/dl (0.2-1.3); Blood Urea Nitrogen 20 mg/dl (7-17); Calcium 9.0 mg/dl (8.4-10.2); Carbon Dioxide 31 mmol/L (22.0-30.0); Chloride 96 mmol/L (98-107); Creatinine Clearance Estimated 81 mL/min (50-200); Creatinine,Serum 0.90 mg/dl (0.52-1.04); Estimated Glomerular Filt Rate 63 ml/min (>60); GFR (African American) 77 ML/MIN (>60); Globulin 2.6 g/dL (1.3-3.2); Glucose 124 mg/dl (74-100); Potassium 3.6 mmoL/L (3.5-5.1); Sodium 138 mmol/L (136-145); Total Protein,Serum 7.2 g/dl (6.3-8.2)
[2025-07-08 10:51] LABS: Lipase 39 U/L (23-300)
[2025-07-08] MEDS: ONDANSETRON 4MG/2ML VIAL 4 MG IV (11:02)
[2025-07-08] MEDS: FENTANYL 100MCG/2ML VIAL 50 MCG IV (11:03)
[2025-07-08] MEDS: LACTATED RINGERS 1000ML 1,000 ML 999 ML IV (11:07)
[2025-07-08 11:10] LABS: Troponin I 0.01 ng/ml (0.00-0.034)
[2025-07-08] MEDS: IOPAMIDOL-370 (76%);100ML BOTTLE 75 ML IV (11:18)
[2025-07-08] MEDS: SODIUM CHLORIDE 0.9% 10ML SYR (RAD ONLY) 10 ML IV (11:18)
[2025-07-08 12:16] LABS: Total Cells Counted 100
[2025-07-08 12:17] LABS: RBC Morphology Normal
--- NOTE | 2025-07-08 13:35 | PC.NURSE ---
is speaking with
[2025-07-08 13:44] LABS: Microscopic, Urine URINE MICROSCOPIC (MICROSCOPIC)
[2025-07-08 13:48] LABS: Bilirubin,Urine Negative (Negative); Color,Urine YELLOW (Yellow); Glucose,Urine (UA) Negative (Negative); Ketones,Urine Negative (Negative); Leukocyte Esterase,Urine TRACE (Negative); PH,Urine 8.0 (5.0-8.5); Protein,Urine Negative (Negative); Specific Gravity, Urine <= 1.005 (1.005-1.030); Urobilinogen,Urine 2.0 EU/dl (0.2)
--- NOTE | 2025-07-08 13:54 | PC.NURSE ---
I notified HS of the need for a bed to admit the pt to the hospitalist.
--- NOTE | 2025-07-08 14:02 | P.HP_ITS ---
<Statement entered by Klaus Fox MD - 07/08/25 16:08> Rounded on patient after nurse practitioner. Personally examined and interviewed patient. Agree with exam findings and care plan as documented. History of Present Illness *Admission Date: 07/08/25 *Reason for visit:: abdomial pain, nausea, vomiting *History of present illness: Ms. William is a 60-year-old female who presented to the emergency department today due to intermittent severe right upper quadrant abdominal pain. She is 3 days status post ERCP with biliary stent placement. She has a history of UTI, COPD, obesity, hypertension, anxiety, PVD, ADHD. She states that on 07/05/2025 she had a ERCP with Dr. Pritchard due to choledocholithiasis with two 8 mm, bile duct stones, at which time she underwent a biliary sphincterotomy and a biliary stent was placed. Patient was discharged home and subsequently has been having nausea, vomiting, abdominal pain, poor p.o. intake since that time. Assessment in the emergency department today was significant for leukocytosis of 19.3. Subsequent exam was benign, CT abdomen/pelvis negative, no electrolyte abnormalities, no anemia, normal kidney function, LFTs and lipase within normal range. Dr. Pritchard was consulted from the emergency department and recommended patient be admitted for pain control and observation due to elevated WBC. [facility] Disclaimer: The information contained in this section may have been updated after the patient was seen, as this information can be updated by other users. Medical History Nicotine dependence COPD (chronic obstructive pulmonary disease) Beverley is taking the tiotropium inhaler with albuterol inhaler as needed. She states that this is helped her shortness of breath and helped improve her lung function. We will just follow this for now. We do need to review Beverley's vaccine history and we will do this when she returns to the clinic. TIA (transient ischemic attack) Surgical History S/P partial hysterectomy History of cholecystectomy H/O right heart catheterization Family History Other No significant family history Social History Smoking Status: Current every day smoker how long ago did patient quit smokin months ago alcohol intake: current substance use type: denies use current occupational status: employed Travel in the last 8 weeks?: None caffeine: Yes Have you lived/traveled outside [place] in past 30 days?: No Contact w/someone who lives/traveled outside [place] past 30 days?: No Exposure to someone with infectious disease in past 14 days?: No Do you have a fever (greater than 100.4 F or 38 C)?: No Have you tested positive for COVID-19?: No Exposed to someone with COVID-19 in past 14 days?: No Do you have a sore throat?: No Do you have a cough?: No Do you have any weakness?: No Do you have any diarrhea?: No Are you experiencing any unusual bleeding?: No Do you have any muscle aches/pain?: No Do you have any abdominal pain?: No Are you experiencing loss of taste or smell?: No Other Medical History Have you received the Flu Vaccine for this season: No Have you received the Pneumonia Vaccine: No Review of Systems Constitutional Constitutional: Denies chills, Denies fever(s) and Reports poor appetite *Cardiovascular Cardiovascular: Denies chest pain, Denies dyspnea and Denies rapid heart rate *Respiratory Respiratory: Denies cough and Denies dyspnea *Gastrointestinal Gastrointestinal: Reports abdominal pain, Denies diarrhea, Denies hematemesis, Denies melena, Reports nausea and Reports vomiting Meds Home Medications and Allergies Home Medications ?Medication ?Instructions ?Recorded ?Confirmed ?Type albuterol sulfate 1.25 mg/3 mL 1.25 mg (3 mL) inhalati on QID PRN 07/18/23 07/08/25 Rx solution for nebulization shortness of breath or wheez ing #90 mL fluticasone fur. 200 mcg-umeclid 1 inh inhalation SVEN Y #30 ea 04/20/24 07/08/25 Rx 62.5 mcg-vilant 25 mcg inhalat.powder (Trelegy Ellipta) evolocumab 140 mg/mL subcutaneous 140 mg SQ Q2W #3 mL 05/26/24 07/08/25 Rx syringe (Repatha Syringe) albuterol sulfate 90 mcg/actuation 2 puff inhalation A S NEEDED PRN 12/07/24 07/08/25 History aerosol inhaler COPD cholecalciferol (vitamin D3) 1,250 1,250 mcg PO WEEKLY 12/07/24 07/08/25 History mcg (50,000 unit) capsule fluticasone furoate 200 1 inh inhalation DAILY 12/0707/08/25 History mcg-vilanterol 25 mcg/dose inhalation powder losartan 50 mg tablet 50 mg PO DAILY 12/07/2412/01 History sertraline 100 mg tablet 100 mg PO ONCE 12/07/2412/01 History calcium 500 mg (as 1 tab PO DAILY 05/24/2512/01 History carbonate)-vitamin D3 10 mcg (400 unit) tablet (Calcium 500 With D) cariprazine 1.5 mg capsule 1.5 mg PO Q OTHER DAY 05/2407/08/25 History (Vraylar) tizanidine 2 mg tablet 2 mg PO Q8H PRN MUSCLE RELAX ER 05/24/25 07/08/25 History New Prescriptions to Start Prescriptions: Allergies Allergy/AdvReac Type Severity Reaction Status Date / Time cefadroxil Allergy Severe Vomiting Verified 07/05/25 13:48 codeine Allergy Anaphylaxis Verified 07/05/25 13:48 Exam Data for Last 24 hours Vital signs and Labs for Last 24 Hours: Temp Pulse Resp BP Pulse Ox O2 Del Method 98.4 F 67 18 93/57 L 93 L Room Air 07/08/25 10:07 07/08/25 13:00 07/08/25 10:07 07/08/25 13:00 07/08/25 13:00 07/08/25 10:07 Laboratory Results - last 24 hr 07/08/25 10:15: WBC 19.7 H, RBC 4.94, Hgb 15.1, Hct 45.8, MCV 92.7, MCH 30.6, MCHC 33.0, RDW 12.2, Plt Count 421, MPV 10.5 H, Neut % (Auto) 65.5, Lymph % (Auto) 23.6, [place] % (Auto) 8.3, Eos % (Auto) 1.1, Baso % (Auto) 1.0, Neut # (Auto) 12.9 H, Lymph # (Auto) 4.7 H, [place] # (Auto) 1.6 H, Eos # (Auto) 0.2, Baso # (Auto) 0.2, Total Counted 100, Neutrophils % (Manual) 70, Lymphocytes % (Manual) 30, Platelet Estimate Normal, RBC Morphology Normal, Sodium 138, Potassium 3.6, Chloride 96 L, Carbon Dioxide 31 H, Anion Gap 14.6, BUN 20 H, Creatinine 0.90, Estimated Creat Clear 81, Estimated GFR 63, Est GFR ( Amer) 77, Glucose 124 H, Calcium 9.0, Total Bilirubin 0.9, AST 30, ALT 29, Alkaline Phosphatase 54, Troponin I 0.01, Total Protein 7.2, Albumin 4.6, Globulin 2.6, Albumin/Globulin Ratio 1.8, Lipase 39 07/08/25 10:37: Blood Type A Positive, Antibody Screen Negative I & O for Last 24 hours: Intake & Output 07/05/25 07/06/25 07/07/25 07/08/25 23:59 23:59 23:59 23:59 Intake Total 1000 / 1000 Balance 1000 / 1000 Weight 88.451 kg Constitutional Constitutional: no acute distress, average body habitus and cooperative *Routine HEENT Exam Head: Present normocephalic Eye: Present EOMI ENT: Present mucous membranes moist *Routine Neck Exam Neck: Present supple *Routine Respiratory Exam Respiratory: Present CTA bilaterally and normal respiratory effort; Absent wheezes or crackles *Routine Cardiovascular Exam Cardiovascular: Present RRR, Normal S1 and Normal S2; Absent murmur *Routine Abdominal Exam Abdominal: Present soft, normoactive bowel sounds and tenderness (RUQ); Absent distended *Routine Rectal Exam Rectal:: deferred *Routine Genitalia Exam Genitalia:: deferred *Routine Extremities Exam Extremities: Present normal capillary refill; Absent edema *Routine Skin Exam Skin: Present intact and dry; Absent erythema or rash *Routine Neurological Exam Neurological: Present alert, oriented X3 and moving all extremities Routine Psychiatric Exam Psychiatric: Present normal affect Assessment and Plan *Assessment and plan (1) Nausea & vomiting: Status: Acute Category: Medical Code(s): R11.2 - Nausea with vomiting, unspecified (2) Right upper quadrant abdominal pain: Status: Acute Category: Medical Code(s): R10.11 - Right upper quadrant pain (3) Status post endoscopic retrograde cholangiopancreatography: Status: Acute Category: Surgical Code(s): Z98.890 - Other specified postprocedural states (4) COPD (chronic obstructive pulmonary disease) with acute bronchitis: Status: Acute Category: Medical Code(s): J44.0 - Chronic obstructive pulmonary disease with (acute) lower respiratory infection; J20.9 - Acute bronchitis, unspecified (5) Obesity (BMI 30.0-34.9): Problem Comment: Beverley has stopped the semaglutide injections. She states I just could not get them . From what I understand the problems with access have been resolved. I suggested to Beverley that she talk to her pharmacy. I also talked her at length about the need for exercise with the semaglutide. She needs to be doing at least 3 days a week of 20 to 30 minutes of moderate exercise. Status: Acute Category: Medical Code(s): E66.811 - Obesity, class 1 (6) Anxiety: Status: Chronic Category: Medical Code(s): F41.9 - Anxiety disorder, unspecified (7) Hypertension: Status: Acute Category: Medical Code(s): I10 - Essential (primary) hypertension Plan Ms. William is a 60-year-old female who presented to the emergency department today due to intermittent severe right upper quadrant abdominal pain. She is 3 days status post ERCP with biliary stent placement. She has a history of UTI, COPD, obesity, hypertension, anxiety, PVD, ADHD, and cholecystectomy. She states that on 07/05/2025 she had a ERCP with Dr. Pritchard due to choledocholithiasis with two 8 mm, bile duct stones, at which time she underwent a biliary sphincterotomy and a biliary stent was placed. Patient was discharged home and subsequently has been having nausea, vomiting, abdominal pain, poor p.o. intake since that time. Assessment in the emergency department today was significant for leukocytosis of 19.3. Subsequent exam was benign, CT abdomen/pelvis negative, no electrolyte abnormalities, no anemia, normal kidney function, LFTs and lipase within normal range. Dr. Pritchard was consulted from the emergency department and recommended patient be admitted for pain control and observation due to elevated WBC. I was consulted for admission, I agreed to admit the patient. Plan of care as follows: #Right upper quadrant pain #Nausea and vomiting #Status post ERCP ? Patient complains of intermittent right upper quadrant pain, she received diazepam 2.5 mg IV once and fentanyl 50 mcg IV once in the ED. She also received a GI cocktail, 1 L LR, and Zofran for nausea and vomiting. Patient currently states she feels better and would like to try to eat, will advance t to full liquid. ? Patient has anaphylactic reaction to codeine, will refrain from ordering any opioid pain medication. Diazepam 5 mg IV every 6 hours as needed, Toradol 15 mg every 6 hours as needed, and Tylenol 650 mg p.o. ordered for pain control. Monitoring for toxicity. ? Lab work on admission significant for WBC 19.7, glucose 124. Negative troponins, lipase 39, AST 30, ALT 29, normal kidney function creatinine 0.90, no electrolyte abnormalities sodium 138, potassium 3.6. Chest x-ray shows no acute cardiopulmonary process, abdomen/pelvis CT negative for acute findings, does show biliary stent in place. ? Will start empiric antibiotics, Zosyn 3.375 every 6 hour due to elevated WBC. Blood cultures pending. ? GI consulted for further recommendations. CBC, CMP, magnesium ordered for the a.m. #COPD:Patient lungs CTA on assessment. No shortness of breath noted. DuoNebs every 6 hours as needed ordered, continue Trelegy inhaler daily. #Hypertension: Continue losartan 50 mg daily. #Anxiety: Continue sertraline 100 mg daily. #Obesity: Complicates all aspects of care. Full code Full liquid diet VTE?Lovenox 40 mg subcu daily Ambulate as tolerated
[2025-07-08 14:04] LABS: Bacteria,Urine Trace /lpf; Squamous Epithelial Cell,Urine Occasional #/hpf (0-5); WBC,Urine Occasional #/hpf (0-3)
--- NOTE | 2025-07-08 14:08 | PC.NURSE ---
Dr. Pritchard at pts bedside.
--- NOTE | 2025-07-08 14:11 | PC.NURSE ---
Lab to come get two sets of blood cultures
--- NOTE | 2025-07-08 14:14 | PC.NURSE ---
Called report to SANDI Lucia.
[2025-07-08] MEDS: diazePAM 10MG/2ML SYRINGE 2.5 MG IV (14:16)
[2025-07-08] MEDS: BELLADONNA ALKALOIDS 60 ML ML PO (14:16)
[2025-07-08 14:29] LABS: Troponin I 0.01 ng/ml (0.00-0.034)
[2025-07-08] MEDS: KETOROLAC 15MG/ML VIAL 15 MG IV (15:48)
[2025-07-08] MEDS: SERTRALINE 100MG TABLET 100 MG PO (16:31)
[2025-07-08] MEDS: PIPERACILLIN/TAZO 3.375 GM in 0.9 % SODIUM CHLORIDE 50 ML IV ×2 (16:31→20:03)
--- NOTE | 2025-07-08 17:15 | P.PN_ITS ---
Subjective *Date: 07/08/25 *Time: 17:15 Interval history: Mrs. William is a 60-year-old female who presents to the ED with acute right upper quadrant abdominal pain. She has had some chronic intermittent right upper quadrant abdominal pain. Her CAT scan had shown a dilated common bile enrique t to 12 mm and she has previously had cholecystectomy. She did undergo ERCP with me on Thursday 07/05 and had 2 CBD stones (8 mm each) and underwent biliary sphincterotomy and biliary stent placement. ED evaluation shows leukocytosis with white blood cell count of 19.7. Low hemoglobin hematocrit from normal at 15.1 and 45.8. Her chemistries were normal with normal AST 30, ALT 29, alkaline phosphatase 54, total bilirubin 0.[address] imaging shows no acute intra-abdominal process with normal endoscopic biliary stent in place. There is no pancreatitis or pneumoperitoneum. The patient has had some chronic constipation and has not been recently taking her fiber bowel regimen (MiraLAX plus Citrucel). CT scan does show abundant stool in the right colon to the hepatic flexure. Exam Data for Last 24 hours Vital signs and Labs for Last 24 Hours: Temp Pulse Resp BP Pulse Ox O2 Del Method 98.1 F 85 17 97/59 L 95 Room Air 07/08/25 14:56 07/08/25 14:56 07/08/25 14:56 07/08/25 14:56 07/08/25 14:56 07/08/25 15:40 Laboratory Results - last 24 hr 07/08/25 10:15: WBC 19.7 H, RBC 4.94, Hgb 15.1, Hct 45.8, MCV 92.7, MCH 30.6, MCHC 33.0, RDW 12.2, Plt Count 421, MPV 10.5 H, Neut % (Auto) 65.5, Lymph % (Auto) 23.6, [place] % (Auto) 8.3, Eos % (Auto) 1.1, Baso % (Auto) 1.0, Neut # (Auto) 12.9 H, Lymph # (Auto) 4.7 H, [place] # (Auto) 1.6 H, Eos # (Auto) 0.2, Baso # (Auto) 0.2, Total Counted 100, Neutrophils % (Manual) 70, Lymphocytes % (Manual) 30, Platelet Estimate Normal, RBC Morphology Normal, Sodium 138, Potassium 3.6, Chloride 96 L, Carbon Dioxide 31 H, Anion Gap 14.6, BUN 20 H, Creatinine 0.90, Estimated Creat Clear 81, Estimated GFR 63, Est GFR ( Amer) 77, Glucose 124 H, Calcium 9.0, Total Bilirubin 0.9, AST 30, ALT 29, Alkaline Phosphatase 54, Troponin I 0.01, Total Protein 7.2, Albumin 4.6, Globulin 2.6, Albumin/Globulin Ratio 1.8, Lipase 39 07/08/25 10:37: Blood Type A Positive, Antibody Screen Negative 07/08/25 13:31: Urine Color Yellow, Urine Appearance Clear, Urine pH 8.0, Ur Specific [place] <= 1.005, Urine Protein Negative, Urine Glucose (UA) Negative, Urine Ketones Negative, Urine Blood Negative, Urine Nitrate Negative, Urine Bilirubin Negative, Urine Urobilinogen 2.0, Ur Leukocyte Esterase Trace, Urine RBC None, Urine WBC Occasional, Ur Squamous Epith Cells Occasional, Urine Bacteria Trace 07/08/25 13:55: Troponin I 0.01 I & O for Last 24 hours: Intake & Output 07/05/25 07/06/25 07/07/25 07/08/25 23:59 23:59 23:59 23:59 Intake Total 1000 / 1000 Balance 1000 / 1000 Weight 185 lb 5 oz *Routine Abdominal Exam Comments: Normoactive bowel sounds, soft, mild tenderness in the right upper and lower quadrant without rebound or guarding, no masses, no hernias, benign abdomen Assessment and Plan *Assessment and plan (1) Right upper quadrant abdominal pain: Status: Acute Category: Medical Code(s): R10.11 - Right upper quadrant pain Plan 1. Acute on chronic right upper quadrant abdominal pain. Prior to the ERCP, we did feel that she probably has some functional intestinal pain/hepatic flexure syndrome that may indeed be different than biliary colic from choledocholithiasis. She does have abundant stool in the right colon to the hepatic flexure. Because of her leukocytosis, I do feel it is appropriate to be admitted overnight. I would recommend that she get back on her MiraLAX with Citrucel daily and I will order a laxative today. I have recommended that she get a GI cocktail plus benzodiazepine which should help with some of the functional intestinal pain. We also discussed dietary measures to follow. As long as she is improving, she can go home tomorrow with morning.
[2025-07-08 17:36] LABS: Troponin I < 0.01 ng/ml (0.00-0.034)
[2025-07-08 18:26] LABS: Hepatitis C Ab Qual. W/ RFX NEGATIVE (Negative)
[2025-07-08] MEDS: BISACODYL 5MG TABLET 5 MG PO (18:26)
[2025-07-08] MEDS: ACETAMINOPHEN 325MG TAB 650 MG PO (20:05)
[2025-07-08] MEDS: diazePAM 10MG/2ML SYRINGE 5 MG IV (20:06)
[2025-07-09] VITALS: BP 129/68; PULSE 66; RESP 16; TEMP 36.6; O2SAT 95
[2025-07-09] MEDS: KETOROLAC 15MG/ML VIAL 15 MG IV ×2 (00:40→08:15)
[2025-07-09] MEDS: PIPERACILLIN/TAZO 3.375 GM in 0.9 % SODIUM CHLORIDE 50 ML IV ×2 (03:43→08:02)
[2025-07-09 04:00] VITALS: BP 111/58; PULSE 72; RESP 16; TEMP 36.7; O2SAT 93; BMI 30.4
[2025-07-09] MEDS: diazePAM 10MG/2ML SYRINGE 5 MG IV (04:38)
[2025-07-09 05:49] LABS: Hematocrit 36.7 % (37.0-47.0); Immature Granulocytes % 0.3 %; Mean Corpuscular HGB Conc 33.8 g/dL (31.8-35.4); Mean Corpuscular Hemoglobin 31.0 pg (27.0-31.2); Mean Corpuscular Volume 91.8 fl (81-99); Nucleated Red Blood Cells % 0 %; Platelet Count 323 K/mm3 (142-424); Red Blood Count 4.00 M/mm3 (4.20-5.40); Red Cell Distribution Width-SD 40.6 fL; White Blood Count 13.6 K/mm3 (4.8-10.8)
[2025-07-09 05:57] LABS: Hemoglobin 12.5 g/dL (12.2-16.2)
[2025-07-09 06:00] LABS: Albumin Level 3.5 g/dl (3.5-5.0); Chloride 97 mmol/L (98-107)
[2025-07-09 06:01] LABS: Potassium 3.5 mmoL/L (3.5-5.1); Sodium 133 mmol/L (136-145)
[2025-07-09 06:03] LABS: Alanine Aminotransferase 26 U/L (12-78); Albumin/Globulin Ratio 1.5 (1.1-1.8); Alkaline Phosphatase 53 U/L (38-126); Anion Gap 10.5 mEq/L (5-15); Aspartate Amino Transferase 29 U/L (14-36); Bilirubin,Total 0.7 mg/dl (0.2-1.3); Blood Urea Nitrogen 16 mg/dl (7-17); Carbon Dioxide 29 mmol/L (22.0-30.0); Creatinine Clearance Estimated 79 mL/min (50-200); Creatinine,Serum 0.90 mg/dl (0.52-1.04); Estimated Glomerular Filt Rate 63 ml/min (>60); GFR (African American) 77 ML/MIN (>60); Globulin 2.4 g/dL (1.3-3.2); Total Protein,Serum 5.9 g/dl (6.3-8.2)
[2025-07-09 06:04] LABS: Calcium 8.8 mg/dl (8.4-10.2); Glucose 141 mg/dl (74-100); Magnesium 1.8 mg/dl (1.6-2.3)
--- NOTE | 2025-07-09 06:06 | PC.NURSE ---
patient c/o RUQ/epigastric spasm like pain t/o majority of the night - tx per dec. patient tolerated juices and pb crackers
[2025-07-09] MEDS: FLUTICASONE/UMECLIDIN/VILANTER 200/62.5/25MCG INHALER 1 PUFF IH (06:18)
[2025-07-09 06:19] VITALS: O2SAT 90
[2025-07-09 07:49] VITALS: BP 165/80; PULSE 67; RESP 20; TEMP 36.6; O2SAT 96
[2025-07-09] MEDS: POTASSIUM CHLORIDE 20MEQ TAB 40 MEQ PO (08:01)
[2025-07-09] MEDS: ONDANSETRON 4MG/2ML VIAL 4 MG IV (08:01)
[2025-07-09] MEDS: IRBESARTAN 75MG TABLET 75 MG PO (08:02)
[2025-07-09] MEDS: SERTRALINE 100MG TABLET 100 MG PO (08:02)
--- NOTE | 2025-07-09 08:06 | HMH.PHAINT1 ---
Pharmacy Intervention Comments: verified home medication list using list from outpatient pharmacy
--- NOTE | 2025-07-09 08:50 | P.DS_ITS ---
<Statement entered by Klaus Fox MD - 07/09/25 10:52> Rounded on patient after nurse practitioner. Personally examined and interviewed patient. Agree with exam findings and care plan as documented. General Admission date:: 07/08/25 Discharge date: 07/09/25 HPI HPI HPI: Ms. William is a 60-year-old female who presented to the emergency department today due to intermittent severe right upper quadrant abdominal pain. She is 3 days status post ERCP with biliary stent placement. She has a history of UTI, COPD, obesity, hypertension, anxiety, PVD, ADHD. She states that on 07/05/2025 she had a ERCP with Dr. Pritchard due to choledocholithiasis with two 8 mm, bile duct stones, at which time she underwent a biliary sphincterotomy and a biliary stent was placed. Patient was discharged home and subsequently has been having nausea, vomiting, abdominal pain, poor p.o. intake since that time. Assessment in the emergency department today was significant for leukocytosis of 19.3. Subsequent exam was benign, CT abdomen/pelvis negative, no electrolyte abnormalities, no anemia, normal kidney function, LFTs and lipase within normal range. Dr. Pritchard was consulted from the emergency department and recommended patient be admitted for pain control and observation due to elevated WBC. Hospital Course Hospital Course Hospital Course: Ms. William is a 60-year-old female who presented to the emergency department due to intermittent severe right upper quadrant abdominal pain. She is 4 days status post ERCP with biliary stent placement. She has a history of UTI, COPD, obesity, hypertension, anxiety, PVD, ADHD, and cholecystectomy. She states that on 07/05/2025 she had a ERCP with Dr. Pritchard due to choledocholithiasis with two 8 mm, bile duct stones, at which time she underwent a biliary sphincterotomy and a biliary stent was placed. Patient was discharged home and subsequently has been having nausea, vomiting, abdominal pain, poor p.o. intake since that time. Assessment in the emergency department today was significant for leukocytosis of 19.3. Subsequent exam was benign, CT abdomen/pelvis negative, no electrolyte abnormalities, no anemia, normal kidney function, LFTs and lipase within normal range. Dr. Pritchard was consulted from the emergency department and recommended patient be admitted for pain control and observation due to elevated WBC. I was consulted for admission, I agreed to admit the patient. Plan of care was as follows: #Right upper quadrant pain #Nausea and vomiting #Status post ERCP ? Lab work on admission significant for WBC 19.7, glucose 124. Negative troponins, lipase 39, AST 30, ALT 29, normal kidney function creatinine 0.90, no electrolyte abnormalities sodium 138, potassium 3.6. Chest x-ray shows no acute cardiopulmonary process, abdomen/pelvis CT negative for acute findings, does show biliary stent in place. ?Patient well-appearing this morning, complains of dull, intermittent right upper quadrant abdominal pain?likely from biliary spasming. She does state that she occasionally has epigastric and left upper quadrant pain as well. She received diazepam IV, Toradol, Tylenol for pain control overnight. Patient states the medications have been helping. Dr. Pritchard recommendation for benzo and to continue MiraLAX/Citrucel daily. Patient tolerating p.o. diet without vomiting, some intermittent nausea. ? Patient will be discharged home on Ativan 1 mg every 6 hours as needed, Toradol 10 mg, Zofran 4 mg every 6 hours as needed, and Protonix 40 mg daily. Patient should also continue MiraLAX/Citrucel [id number]. ? Patient complains of intermittent right upper quadrant pain, she received diazepam 2.5 mg IV once and fentanyl 50 mcg IV once in the ED. She also received a GI cocktail, 1 L LR, and Zofran for nausea and vomiting. Patient currently states she feels better and would like to try to eat, will advance diet to full liquid. ?Initial white count was 19.7, trending downward today to 13.6. Patient received Zosyn during admission, will transition to Augmentin twice daily for total of 5 days antibiotic course. #COPD: Patient lungs CTA on assessment. No shortness of breath noted. Continue Trelegy inhaler daily and albuterol inhaler every 4 hours as needed for shortness of breath. #Hypertension: Continue losartan 50 mg daily. #Anxiety: Continue sertraline 100 mg daily continue Vraylar 1.5 mg every 48 hours. #Obesity: Complicates all aspects of care. Total time spent on discharge 35 minutes in counseling, documentation, chart review, and direct care with patient. Exam Data for Last 24 hours Vital signs and Labs for Last 24 Hours: Temp Pulse Resp BP Pulse Ox O2 Del Method 97.8 F 67 20 165/80 H 96 Room Air 07/09/25 07:49 07/09/25 07:49 07/09/25 07:49 07/09/25 07:49 07/09/25 07:49 07/09/25 07:49 Laboratory Results - last 24 hr 07/08/25 10:15: WBC 19.7 H, RBC 4.94, Hgb 15.1, Hct 45.8, MCV 92.7, MCH 30.6, MCHC 33.0, RDW 12.2, Plt Count 421, MPV 10.5 H, Neut % (Auto) 65.5, Lymph % (Auto) 23.6, Caldwell % (Auto) 8.3, Eos % (Auto) 1.1, Baso % (Auto) 1.0, Neut # (Auto) 12.9 H, Lymph # (Auto) 4.7 H, Caldwell # (Auto) 1.6 H, Eos # (Auto) 0.2, Baso # (Auto) 0.2, Total Counted 100, Neutrophils % (Manual) 70, Lymphocytes % (Manual) 30, Platelet Estimate Normal, RBC Morphology Normal, Sodium 138, Potassium 3.6, Chloride 96 L, Carbon Dioxide 31 H, Anion Gap 14.6, BUN 20 H, Creatinine 0.90, Estimated Creat Clear 81, Estimated GFR 63, Est GFR ( Amer) 77, Glucose 124 H, Calcium 9.0, Total Bilirubin 0.9, AST 30, ALT 29, Alkaline Phosphatase 54, Troponin I 0.01, Total Protein 7.2, Albumin 4.6, Globulin 2.6, Albumin/Globulin Ratio 1.8, Lipase 39, HCV Ab LYDIA w/Rflx PCR Qn Negative, HIV Ag/Ab Combo Qual Negative 07/08/25 10:37: Blood Type A Positive, Antibody Screen Negative 07/08/25 13:31: Urine Color Yellow, Urine Appearance Clear, Urine pH 8.0, Ur Specific Moody <= 1.005, Urine Protein Negative, Urine Glucose (UA) Negative, Urine Ketones Negative, Urine Blood Negative, Urine Nitrate Negative, Urine Bilirubin Negative, Urine Urobilinogen 2.0, Ur Leukocyte Esterase Trace, Urine RBC None, Urine WBC Occasional, Ur Squamous Epith Cells Occasional, Urine Bacteria Trace 07/08/25 13:55: Troponin I 0.01 07/08/25 16:58: Troponin I < 0.01 07/09/25 05:19: WBC 13.6 H D, RBC 4.00 L, Hgb 12.5 D, Hct 36.7 L, MCV 91.8, MCH 31.0, MCHC 33.8, RDW 12.1, Plt Count 323, MPV 10.6 H, Neut % (Auto) 66.1, Lymph % (Auto) 21.3, Caldwell % (Auto) 7.9, Eos % (Auto) 3.1, Baso % (Auto) 1.3, Neut # (Auto) 9.0 H, Lymph # (Auto) 2.9, Caldwell # (Auto) 1.1 H, Eos # (Auto) 0.4, Baso # (Auto) 0.2, Sodium 133 L, Potassium 3.5, Chloride 97 L, Carbon Dioxide 29, Anion Gap 10.5, BUN 16, Creatinine 0.90, Estimated Creat Clear 79, Estimated GFR 63, Est GFR ( Amer) 77, Glucose 141 H, Calcium 8.8, Magnesium 1.8, Total Bilirubin 0.7, AST 29, ALT 26, Alkaline Phosphatase 53, Total Protein 5.9 L, Albumin 3.5 D, Globulin 2.4, Albumin/Globulin Ratio 1.5 I & O for Last 24 hours: Intake & Output 07/06/25 07/07/25 07/08/25 07/09/25 23:59 23:59 23:59 23:59 Intake Total 1979 980 / 980 Output Total 0 / 0 0 / 0 Balance 1979 980 / 980 Weight 84.056 kg 85.956 kg Constitutional Constitutional: no acute distress, obese and cooperative *Routine HEENT Exam Head: Present normocephalic Eye: Present EOMI ENT: Present mucous membranes moist *Routine Respiratory Exam Respiratory: Present CTA bilaterally, able to speak in complete sentences and symmetric chest movement; Absent wheezes or crackles *Routine Cardiovascular Exam Cardiovascular: Present RRR, Normal S1 and Normal S2; Absent murmur *Routine Abdominal Exam Abdominal: Present soft, normoactive bowel sounds and tenderness (RUQ tenderness); Absent distended or firm *Routine Extremities Exam Extremities: Present full ROM; Absent edema *Routine Skin Exam Skin: Present intact and dry; Absent erythema or rash *Routine Neurological Exam Neurological: Present alert, oriented X3, vision grossly intact, hearing grossly intact and normal speech Results Data Completed and Pending Labs on day of discharge: Labs from last 24 hours 07/09/25 07/08/25 07/08/25 05:19 16:58 13:55 WBC 13.6 H D RBC 4.00 L Hgb 12.5 D Hct 36.7 L MCV 91.8 MCH 31.0 MCHC 33.8 RDW 12.1 Plt Count 323 MPV 10.6 H Neut % (Auto) 66.1 Lymph % (Auto) 21.3 Caldwell % (Auto) 7.9 Eos % (Auto) 3.1 Baso % (Auto) 1.3 Neut # (Auto) 9.0 H Lymph # (Auto) 2.9 Caldwell # (Auto) 1.1 H Eos # (Auto) 0.4 Baso # (Auto) 0.2 Total Counted Neutrophils % (Manual) Lymphocytes % (Manual) Platelet Estimate RBC Morphology Sodium 133 L Potassium 3.5 Chloride 97 L Carbon Dioxide 29 Anion Gap 10.5 BUN 16 Creatinine 0.90 Estimated Creat Clear 79 Estimated GFR 63 Est GFR ( Amer) 77 Glucose 141 H Calcium 8.8 Magnesium 1.8 Total Bilirubin 0.7 AST 29 ALT 26 Alkaline Phosphatase 53 Troponin I < 0.01 0.01 Total Protein 5.9 L Albumin 3.5 D Globulin 2.4 Albumin/Globulin Ratio 1.5 Lipase Urine Color Urine Appearance Urine pH Ur Specific Moody Urine Protein Urine Glucose (UA) Urine Ketones Urine Blood Urine Nitrate Urine Bilirubin Urine Urobilinogen Ur Leukocyte Esterase Urine RBC Urine WBC Ur Squamous Epith Cells Urine Bacteria HCV Ab LYDIA w/Rflx PCR Qn HIV Ag/Ab Combo Qual Blood Type Antibody Screen 07/08/25 07/08/25 07/08/25 13:31 10:37 10:15 WBC 19.7 H RBC 4.94 Hgb 15.1 Hct 45.8 MCV 92.7 MCH 30.6 MCHC 33.0 RDW 12.2 Plt Count 421 MPV 10.5 H Neut % (Auto) 65.5 Lymph % (Auto) 23.6 Caldwell % (Auto) 8.3 Eos % (Auto) 1.1 Baso % (Auto) 1.0 Neut # (Auto) 12.9 H Lymph # (Auto) 4.7 H Caldwell # (Auto) 1.6 H Eos # (Auto) 0.2 Baso # (Auto) 0.2 Total Counted 100 Neutrophils % (Manual) 70 Lymphocytes % (Manual) 30 Platelet Estimate Normal RBC Morphology Normal Sodium 138 Potassium 3.6 Chloride 96 L Carbon Dioxide 31 H Anion Gap 14.6 BUN 20 H Creatinine 0.90 Estimated Creat Clear 81 Estimated GFR 63 Est GFR ( Amer) 77 Glucose 124 H Calcium 9.0 Magnesium Total Bilirubin 0.9 AST 30 ALT 29 Alkaline Phosphatase 54 Troponin I 0.01 Total Protein 7.2 Albumin 4.6 Globulin 2.6 Albumin/Globulin Ratio 1.8 Lipase 39 Urine Color Yellow Urine Appearance Clear Urine pH 8.0 Ur Specific Moody <= 1.005 Urine Protein Negative Urine Glucose (UA) Negative Urine Ketones Negative Urine Blood Negative Urine Nitrate Negative Urine Bilirubin Negative Urine Urobilinogen 2.0 Ur Leukocyte Esterase Trace Urine RBC None Urine WBC Occasional Ur Squamous Epith Cells Occasional Urine Bacteria Trace HCV Ab LYDIA w/Rflx PCR Qn Negative HIV Ag/Ab Combo Qual Negative Blood Type A Positive Antibody Screen Negative DS: Diagnosis Discharge Diagnosis (1) Right upper quadrant abdominal pain: Status: Acute Code(s): R10.11 - Right upper quadrant pain (2) Leukocytosis: Status: Acute Code(s): D72.829 - Elevated white blood cell count, unspecified (3) Status post endoscopic retrograde cholangiopancreatography: Status: Acute Code(s): Z98.890 - Other specified postprocedural states (4) Hypertension: Status: Acute Code(s): I10 - Essential (primary) hypertension (5) Nausea & vomiting: Status: Acute Code(s): R11.2 - Nausea with vomiting, unspecified Meds Home Medications and Allergies Home Medications ?Medication ?Instructions ?Recorded ?Confirmed ?Type fluticasone fur. 200 mcg-umeclid 1 inh inhalation SVEN Y #30 ea 04/20/24 07/08/25 Rx 62.5 mcg-vilant 25 mcg inhalat.powder (Trelegy Ellipta) evolocumab 140 mg/mL subcutaneous 140 mg SQ Q2W #3 mL 05/26/24 07/08/25 Rx syringe (Repatha Syringe) albuterol sulfate 90 mcg/actuation 2 puff inhalation Q 4HP PRN 12/07/24 07/09/25 History aerosol inhaler Shortness Of Breath cholecalciferol (vitamin D3) 1,250 1,250 mcg PO WEEKLY 12/07/24 07/08/25 History mcg (50,000 unit) capsule losartan 50 mg tablet 50 mg PO DAILY 12/07/2412/01 History sertraline 100 mg tablet 100 mg PO DAILY 12/07/2412/29 History calcium 500 mg (as 1 tab PO DAILY 05/24/2512/01 History carbonate)-vitamin D3 10 mcg (400 unit) tablet (Calcium 500 With D) cariprazine 1.5 mg capsule 1.5 mg PO Q48H PER PATIENT 05/24/25 07/09/25 History (Vraylar) tizanidine 2 mg tablet 2 mg PO Q8H PRN muscle spasm s 05/24/25 07/08/25 History alendronate 70 mg tablet 70 mg PO WEEKLY 07/09/2512/29 History amoxicillin 875 mg-potassium 1 tab PO BID #8 tabs 12/29 Rx clavulanate 125 mg tablet ketorolac 10 mg tablet 10 mg PO Q8H PRN pain #9 tab s 07/09/25 Rx lorazepam 1 mg tablet (Ativan) 1 mg PO Q6H PRN anxiety #12 tabs 07/09/25 Rx methocarbamol 750 mg tablet 1,500 mg PO TIDP PRN MUSCL E SPASMS 07/09/25 07/09/25 History ondansetron 4 mg disintegrating 4 mg PO Q6H PRN nausea and 07/09/25 Rx tablet vomiting #12 tabs pantoprazole 40 mg tablet,delayed 40 mg PO DAILY #30 t abs 07/09/25 Rx release (Protonix) New Prescriptions to Start Prescriptions: amoxicillin-pot clavulanate Cherelle Cleary ketorolac Cherelle Cleary lorazepam [Ativan] Cherelle Cleary ondansetron Cherelle Cleary pantoprazole [Protonix] Cherelle Cleary Allergies Allergy/AdvReac Type Severity Reaction Status Date / Time cefadroxil Allergy Severe Vomiting Verified 07/05/25 13:48 codeine Allergy Anaphylaxis Verified 07/05/25 13:48 Discharge Plan Disposition Patient Disposition: Home, Self-Care Condition: Good Follow up Plan Follow up with: Cindi Forde PA [Primary Care Provider, Medical] - Enter time for follow up Lino Pritchard II, MD [Staff Physician, Gastroenterology] - Enter time for follow up Prescriptions/Medication Reconciliation: New lorazepam [Ativan] 1 mg tablet 1 mg PO Q6H PRN (Reason: anxiety) Qty: 12 0RF ondansetron 4 mg tablet,disintegrating 4 mg PO Q6H PRN (Reason: nausea and vomiting) Qty: 12 0RF amoxicillin-pot clavulanate 875-125 mg tablet 1 tab PO BID Qty: 8 0RF pantoprazole [Protonix] 40 mg tablet,delayed release (DR/EC) 40 mg PO DAILY Qty: 30 0RF ketorolac 10 mg tablet 10 mg PO Q8H PRN (Reason: pain) Qty: 9 0RF Rx Instructions: maximum total duration of 5 days from all oral, intranasal, or parenteral formulations Continued Trelegy Ellipta 200-62.5-25 mcg blister with device 1 inh inhalation DAILY Qty: 30 2RF tizanidine 2 mg tablet 2 mg PO Q8H PRN (Reason: muscle spasms) calcium carbonate-vitamin D3 [Calcium 500 With D] 500 mg-10 mcg (400 unit) tablet 1 tab PO DAILY Patient Comments: TAKE ONE TABLET BY MOUTH ONCE A DAY Vraylar 1.5 mg capsule 1.5 mg PO Q48H Repatha Syringe 140 mg/mL syringe 140 mg SQ Q2W Qty: 3 2RF alendronate 70 mg tablet 70 mg PO WEEKLY methocarbamol 750 mg tablet 1,500 mg PO TIDP PRN (Reason: MUSCLE SPASMS) losartan 50 mg tablet 50 mg PO DAILY sertraline 100 mg tablet 100 mg PO DAILY albuterol sulfate 90 mcg/actuation HFA aerosol inhaler 2 puff inhalation Q4HP PRN (Reason: Shortness Of Breath) cholecalciferol (vitamin D3) 1,250 mcg (50,000 unit) capsule 1,250 mcg PO WEEKLY Problem Reconciliation Problems Reviewed?: Yes Patient Discharge Instructions ACTIVITY: Continue current activity DIET: advance to your usual diet and low fat, low cholesterol Patient Instructions: DI for Abdominal Pain in Adults Print Language: Martiniquais Providers Primary Care Provider: Cindi Forde Admit Provider: Klaus Fox Attending Provider: Klaus Fox
--- NOTE | 2025-07-12 11:00 | SW/DCPLANNER ---
Spoke with patient on the phone. Patient stated that she is doing good. Patient stated that she is aware of her upcoming appointments. 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 Patient stated that she has no concerns or questions at this time. Ramsey Robles
== END 2025-07-09 11:23 | disposition home or self-care (01) ==
LOC: ER 10:29 → 2ND 14:07
PROVIDERS: Admitting Provider Internal Medicine Adolescent Medicine; Emergency Provider Student in an Organized Health Care Education/Training Program; PCP Physician Assistant; Visit Provider Internal Medicine Adolescent Medicine
DX: G89.18 Other acute postprocedural pain (principal); D72.829 Elevated white blood cell count, unspecified; R10.11 Right upper quadrant pain; I10 Essential (primary) hypertension; R11.2 Nausea with vomiting, unspecified; F41.9 Anxiety disorder, unspecified; F90.9 Attention-deficit hyperactivity disorder, unspecified type; J20.9 Acute bronchitis, unspecified; J44.0 Chronic obstructive pulmonary disease with (acute) lower respiratory infection; F17.210 Nicotine dependence, cigarettes, uncomplicated; E66.811 Obesity, class 1; Z98.890 Other specified postprocedural states; Z86.73 Personal history of transient ischemic attack (TIA), and cerebral infarction without residual deficits; Z68.30 Body mass index [BMI] 30.0-30.9, adult; Z88.1 Allergy status to other antibiotic agents; Z88.5 Allergy status to narcotic agent; Z96.89 Presence of other specified functional implants; Z79.899 Other long term (current) drug therapy
CPT/HCPCS: 36415; 71045; 74177; 80053; 81001; 83690; 83735; 84484; 85007; 85025; 85027; 86803; 86850; 87040; 87389; 94640; 96361; 96365; 96372; 96375; 96376; 99285; G0378; J1650; J1885; J2405; J2543; J3010; J3360; J7120; Q9967